=== PATIENT | male | born 1950 | race Caucasian/White ===

== ENCOUNTER 2019-09-19 01:29 | Inpatient (IN) ==
[2019-09-19] MEDS ORDERED: ALUMINUM/MAGNESIUM SUSP 30 ML UDC PO PRN (03:32)
[2019-09-19] MEDS ORDERED: ONDANSETRON INJ 2 MG/ML 2 ML VIAL IV PRN (03:32)
[2019-09-19] MEDS ORDERED: ACETAMINOPHEN 325 MG TAB PO PRN (03:32)
[2019-09-19 04:14] LABS: Basophils # (auto) 0.01 K/uL (0-0.2); Basophils % (auto) 0.1 %; Eosinophils # (auto) 0.06 K/uL (0-0.5); Eosinophils % (auto) 0.4 %; Hematocrit (blood only) 45.5 % (42-52); Immature Granulocytes # (auto) 0.03 K/uL (0.00-0.02); Immature Granulocytes % (auto) 0.2 %; Lymphocytes # (auto) 2.42 K/uL (1.2-3.4); Lymphocytes % (auto) 18.1 %; Mean Corpuscular Hemoglobin 32.2 pg (25-34); Mean Corpuscular Volume 97.6 fL (80-100); Mean Platelet Volume 12.3 fL (7.4-10.4); Monocytes # (auto) 1.04 K/uL (0.11-0.59); Monocytes % (auto) 7.8 %; Neutrophils % (auto) 73.4 %; Platelet Count 219 K/uL (130-400); RDW Coefficient of Variation 15.3 % (11.5-14.5); RDW Standard Deviation 53.9 fL (36.4-46.3); Red Blood Count 4.66 M/uL (4.7-6.1); White Blood Count 13.36 K/uL (4.8-10.8)
--- NOTE | 2019-09-19 04:14 | History & Physical Report ---
Date of Service September 19, 2019 Assessment & Plan (1) Hypernatremia: 69-year-old male with past medical history Alzheimer's dementia, hypertension, hyperlipidemia, depression, anxiety, DJD presents as a direct admit from outside hospital for management of hypernatremia. Hypernatremia Unclear if acute or chronic or what patient's baseline is Sodium 179 on admission--does not change/correct for hyperglycemia. Free water deficit = 11.1 L. IVF D5W initially at 3 mL/kg/hr = 200 mL/hr. Once serum sodium concentration has reached 145 mEq/L, then can reduce rate of infusion to 1 mL/kg/hr Check BMP every 4 hours, goal to correct serum sodium by 10 mEq/L over 24 hours. Avoid overcorrection (goal <12 mg/L/day) Alzheimer's dementia One-to-one observation PRN ordered Continue donezepil 5 mg nightly Frequent orientation to avoid delirium Hypertension Continue Irbesartan 50 mg daily Depression/anxiety/mood disorder Continue escitalopram 20 mg, risperidone 0.25 twice daily, trazodone 25 mg nightly FEN/GI: Na 179. D5W at 200. N.p.o. DVT prophylaxis: Lovenox SQ DNR/DNI Dispo: Direct admitted to [facility] as there were no beds available in telemetry. Admission and Anticipated Discharge Date Admission Date: September 19, 2019 History of Present Illness Chief Complaint: Hypernatremia Primary Care Provider: NO PCP 69-year-old male with past medical history Alzheimer's dementia, hypertension, hyperlipidemia, depression, anxiety, DJD presents as a direct admit from [facility]. History is limited secondary to patient's cognitive status and lack of any significant paperwork/records from outside hospital. Apparently patient's son was driving with patient today and noticed that patient looked clammy and thus presented to outside hospital ED. Labs at outside hospital reportedly showed a sodium of 170 and creatinine 2. Patient received NSS 1L and was transferred via EMS to our hospital and given 1L D5W en route. No other significant HPI to report. Chest x-ray done at OSH, however no report included other than CD which cannot be read until the a.m. by radiology as we do not have any computers with CD compatibility. Allergies Allergy/AdvReac Type Severity Reaction Status Date / Time shellfish derived Allergy Unknown Verified 09/19/19 03:56 tomato Allergy Unknown Verified 09/19/19 03:56 cephalexin [From Keflex] AdvReac Unknown Verified 09/19/19 03:56 choline fenofibrate AdvReac Unknown Verified 09/19/19 03:56 [From Trilipix] coffee (Coffea arabica) AdvReac Unknown Verified 09/19/19 03:56 ezetimibe [From Zetia] AdvReac Unknown Verified 09/19/19 03:56 rosuvastatin [From Crestor] AdvReac Unknown Verified 09/19/19 03:56 Past Med/Surg History Medical History (Updated 09/20/19 @ 15:38 by Abdi Centeno MD) Alzheimer disease Hypertension Osteoarthritis Social History Smoking Status: Unknown if ever smoked Preferred Language: Tamazight Communication Ability: Impaired Communication Ability Comment: Patient is non-verbal with history of alzheimer's dementia. Records Management Analyst Required: No Beliefs That Will Affect Care: None marital status: Single Current Living Situation: Personal Care Facility Current Living Situation Comment: [facility] Feels Safe at Home: Declines to Answer Review of Systems Review of Systems: Unobtainable due to cognitive status Physical Exam Constitutional: + thin; no acute distress Respiratory: normal respiratory effort, lungs clear to auscultation no respiratory distress and no labored breathing Cardiovascular: RRR, no murmur, no edema Gastrointestinal (Abdomen): normal bowel sounds, soft, nontender, no hepatosplenomegaly Skin: no rashes, warm and dry Cool to touch Psychiatric: Orientation: alert; + not oriented x 3 Nonverbal Genitourinary: Hernandez in place Results & Data Results & Data ([facility]) Vital Signs (Past 12 Hours) Vital Signs Temp Pulse Resp BP Pulse Ox 09/19/19 03:01 37.2 C 97 H 20 111/72 95 09/19/19 03:00 37.2 C 97 H 20 111/72 95 Code Status & VTE Plan Code Status DNR/DNI Supervising Physician Co-Signing Physician Notes Attending addendum: I have physically seen this patient, have supervised the medical residents activities, and agree with the H&P unless as otherwise noted. Assessment and Plan: Hypertonic hypernatremia- Sodium 179 upon admission Calculated free water deficit 11.1 L IV fluid replacement as noted Serial BMP every 4 hours SDAT/depression/anxiety/mood disorder- One-to-one observation Donepezil 5 mg p.o. at bedtime, E citalopram 20 mg daily, risperidone 0.25 mg p.o. twice daily and trazodone 25 mg p.o. at bedtime Hypertension- May need to hold irbesartan Remainder of orders and notations as noted Resident Activity Tracking Resident Involvement: Resident Care Provided Care Provided: Adult Hospital Medicine
[2019-09-19 04:45] LABS: Albumin Globulin Ratio 0.7 (0.9-2); BUN Creatinine Ratio 40.1 (10-20); Bilirubin,Total 0.7 mg/dl (0.2-1); Calcium 8.3 mg/dl (8.5-10.1); Creatinine Clr Calc Pharmacy 36.9 ml/min; Est GFR (African American) 43.6; Est GFR (Non-African American) 37.6; Globulin 4.4 gm/dl (2.5-4.0); Potassium 3.6 mmol/L (3.5-5.1); Total Protein 7.4 gm/dl (6.4-8.2)
[2019-09-19] MEDS: DEXTROSE 5% 1,000 ML IV SCH ×4 (04:54→20:22)
[2019-09-19 05:00] LABS: Appearance Urine Cloudy (Clear); Bacteria Urine Automated Negative (Negative); Blood Urine 3+ (Negative); Color Urine Dark Yellow; Epithelial Cell Urine Auto >30 /lpf (0-5); Glucose Urine UA Negative (Negative); Ketones Urine Trace (Negative); Leukocyte Esterase Urine 2+ (Negative); Nitrite Urine Negative (Negative); Protein Urine 1+ (Negative); Urobilinogen Urine Negative (Negative); WBC Urine Automated >30 /hpf (0-5)
[2019-09-19 05:05] LABS: Bilirubin Urine Negative (Negative); Ictotest Urine Negative (Negative)
[2019-09-19 07:44] LABS: BUN Creatinine Ratio 40.6 (10-20); Calcium 8.3 mg/dl (8.5-10.1); Creatinine Clr Calc Pharmacy 39.3 ml/min; Est GFR (Non-African American) 40.5; Potassium 3.4 mmol/L (3.5-5.1)
[2019-09-19] MEDS: ENOXAPARIN INJ 40 MG/0.4 ML SYR SQ SCH (09:00)
--- NOTE | 2019-09-19 10:02 | Hospitalist Progress Note ---
Date of Service September 19, 2019 Assessment & Plan (1) Hypernatremia: Presumed due to dehydration and lack of free water intake. - Continue D5W, frequent BMP checks. - Free water deficit still ~10L (2) Alzheimer disease: Not sure what baseline is, but at present he is totally non-verbal and fighting/agitated when awake. - Continue donepezil, escitalopram, divalproex, trazodone as able (3) Hypertension: BP presently 135/80. - Continue irbesartan as able (4) DVT prophylaxis: Lovenox Admission and Anticipated Discharge Date Admission Date: September 19, 2019 Subjective Non-verbal. Just moans and cannot answer questions. Review of Systems Review of Systems: Unobtainable due to cognitive status Physical Exam Constitutional: WD/WN, vitals as above + acute distress Eyes: EOM intact bilaterally; no conjunctival abnormality ENMT: external ear and nose normal, oropharynx normal Neck: trachea midline, no thyromegaly normal visual inspection Respiratory: normal respiratory effort, lungs clear to auscultation no respiratory distress Cardiovascular: RRR, no murmur, no edema Gastrointestinal (Abdomen): Inspection/Auscultation: abdomen normal to inspection; abdomen not distended Musculoskeletal: no cyanosis or clubbing, extremities motor strength 5/5 Skin: no rashes, warm and dry Neurologic: moves all extremities and awake Psychiatric: Orientation: alert; + not oriented to person and + uncooperative Results & Data Results & Data ([facility]) Vital Signs (Past 12 Hours) Vital Signs Temp Pulse Resp BP Pulse Ox 09/19/19 03:01 37.2 C 97 H 20 111/72 95 09/19/19 03:00 37.2 C 97 H 20 111/72 95 PG Care Time/CCT Total # of Minutes Spent Total Time Spent with Patient: Total time spent is greater than 50% in coordination of care (as documented) at patient's floor/unit and/or counseling patient: Coding Level of Care Code 39821 Subseq Hosp Care Lvl 2 Diagnoses Hypernatremia E87.0 Alzheimer disease G30.9; F02.80 Hypertension I10 DVT prophylaxis Z29.9
[2019-09-19] MEDS: ESCITALOPRAM OXALATE 20 MG TAB PO SCH (11:15)
[2019-09-19] MEDS: IRBESARTAN 150 MG TAB PO SCH (11:15)
[2019-09-19] MEDS: DIVALPROEX DELAY RELEASE 125 MG TABEC PO SCH ×3 (11:15→21:03)
[2019-09-19] MEDS: risperiDONE 0.5 MG TABLET PO SCH ×2 (11:16→21:03)
[2019-09-19] MEDS: LORazepam 0.5 MG/1 ML VIAL IV PRN ×2 (11:29→16:40)
[2019-09-19 11:55] LABS: BUN Creatinine Ratio 37.5 (10-20); Calcium 7.9 mg/dl (8.5-10.1); Creatinine Clr Calc Pharmacy 39.8 ml/min; Est GFR (African American) 47.7; Est GFR (Non-African American) 41.1; Potassium 3.3 mmol/L (3.5-5.1)
[2019-09-19] MEDS: OLANZapine 10 MG/2.1 ML SDV IM PRN ×2 (12:45→19:32)
[2019-09-19 15:31] LABS: BUN Creatinine Ratio 36.4 (10-20); Calcium 8.4 mg/dl (8.5-10.1); Creatinine Clr Calc Pharmacy 40.3 ml/min; Est GFR (African American) 48.3; Est GFR (Non-African American) 41.7
[2019-09-19 16:00] LABS: Magnesium 3.1 mg/dl (1.8-2.4); Phosphorus 3.5 mg/dl (2.5-4.9); Potassium 3.8 mmol/L (3.5-5.1)
--- NOTE | 2019-09-19 17:10 | XRay Report ---
XR chest 1V portable CLINICAL HISTORY: Hypoxemia at outside hospital COMPARISON STUDY: Outside chest x-ray dated 09/18/2019 FINDINGS: The cardiac and mediastinal contours are normal. There is no evidence of focal pulmonary co nsolidation. There is no evidence of failure. No pleural effusions are visualized.[There is an 8 mm r ight upper lung zone opacity. As this was not visualized on the outside chest x-ray performed the day earlier, this likely represents a summation shadow. IMPRESSION: 1. No active disease in the chest 2. 8 mm right upper lung zone opacity, statistically representing a summation shadow ACT 112: Negative or not required by law. Electronically signed by: Dennis Stewart M.D. 09/19/2019 5:09 PM
[2019-09-19] MEDS: LORazepam 1 MG/2 ML VIAL IV PRN (17:46)
[2019-09-19 19:38] LABS: BUN Creatinine Ratio 35.3 (10-20); Calcium 8.1 mg/dl (8.5-10.1); Creatinine Clr Calc Pharmacy 43.9 ml/min; Est GFR (African American) 53.7; Est GFR (Non-African American) 46.4; Potassium 3.4 mmol/L (3.5-5.1)
[2019-09-19] MEDS: DONEPEZIL HCL 5 MG TAB PO SCH (21:03)
[2019-09-19] MEDS: TRAZODONE HCL 50 MG TAB PO SCH (21:04)
[2019-09-20] MEDS: DEXTROSE 5% 1,000 ML IV SCH ×5 (00:30→21:33)
[2019-09-20 06:00] LABS: Hematocrit (blood only) 40.9 % (42-52); Hemoglobin 13.4 g/dL (14.0-18.0); Mean Corpuscular Hemoglobin 31.4 pg (25-34); Mean Corpuscular Hgb Conc 32.8 g/dL (32-36); Mean Corpuscular Volume 95.8 fL (80-100); Mean Platelet Volume 12.2 fL (7.4-10.4); Platelet Count 176 K/uL (130-400); RDW Coefficient of Variation 14.5 % (11.5-14.5); RDW Standard Deviation 50.8 fL (36.4-46.3); Red Blood Count 4.27 M/uL (4.7-6.1); White Blood Count 10.81 K/uL (4.8-10.8)
[2019-09-20 06:12] LABS: INR 1.1 (0.9-1.1); Prothrombin Time 11.9 Seconds (9.0-12.0)
[2019-09-20 07:00] LABS: Creatinine Clr Calc Pharmacy 61.1 ml/min; Est GFR (African American) 80.1; Est GFR (Non-African American) 69.1; Phosphorus 2.8 mg/dl (2.5-4.9); Potassium 3.2 mmol/L (3.5-5.1)
[2019-09-20] MEDS: POTASSIUM CHLORIDE / WTR 10 MEQ/100 ML PLCT IV SCH ×4 (08:52→12:38)
[2019-09-20] MEDS: IRBESARTAN 150 MG TAB PO SCH (10:53)
[2019-09-20] MEDS: ESCITALOPRAM OXALATE 20 MG TAB PO SCH (10:53)
[2019-09-20] MEDS: DIVALPROEX DELAY RELEASE 125 MG TABEC PO SCH ×3 (10:53→21:30)
[2019-09-20] MEDS: risperiDONE 0.5 MG TABLET PO SCH ×2 (10:54→21:29)
[2019-09-20] MEDS: ENOXAPARIN INJ 40 MG/0.4 ML SYR SQ SCH (10:54)
--- NOTE | 2019-09-20 11:35 | Nephrology Consultation ---
Date of Consultation September 20, 2019 Assessment & Plan (1) Hypernatremia: Mr. Bhagat Admitted with acute hyponatremia and acute kidney injury. has advanced dementia and has been a senior living. Hyponatremia and CLARITZA seems to be secondary to volume depletion with decreased free wonder intake, he had free water deficit almost 11 L on admission. Note suggestive of DI. Acute kidney injury resolved and hyponatremia improving with D5W. -- Decrease D5W to 100 mL/hour, recheck sodium at noon and adjust the rate accordingly. -- Going forward it will be extremely important to educate senior living staff to maintain access to free water considering patient's underlying advanced demen tia. will follow Thank you for allowing me to participate in your patient's care. It was a pleasure to see Mr. Bhagat. (2) Hypertension: (3) Alzheimer disease: History of Present Illness Reason for Consultation: Hypernatremia Attending Physician: Abdi Centeno MD History of Present Illness Mr. Bhagat is 69-year-old gentlemen with past medical history significant for advanced dementia, hypertension admitted from outside hospital as a transfer for hyponatremia. Nephrology consult was requested to manage hyponatremia. Electronic medical records are reviewed in detail during patient's visit. Patient could not provide much history because of underlying dementia and decreased responsiveness however his son was at bedside who provided most of the information. Mr. Bhagat has advanced dementia and he has been living in senior living. Two days ago his son brought him to [facility] emergency room with concern of him to be cold and clammy and not at his baseline. in ER he was found to have sodium 1 and 70 and creatinine 2.0 with baseline normal renal function. Was given 1 L of normal saline and transferred to [facility]. He was found lethargic and less responsive. Serum sodium was 175 and creatinine was 1.8. He was started on D5W at 200 mL/hour. Serum sodium improved rapidly to 162 this morning, creatinine 1.1. Urine output has been less than 1 L and urine specific gravity was high. Blood pressure has been stable, afebrile, no respiratory distress. Currently he he seems to be comfortable, moving extremities however did not communicate any meaningful way or answer any question. Allergies Allergy/AdvReac Type Severity Reaction Status Date / Time shellfish derived Allergy Unknown Verified 09/19/19 03:56 tomato Allergy Unknown Verified 09/19/19 03:56 cephalexin [From Keflex] AdvReac Unknown Verified 09/19/19 03:56 choline fenofibrate AdvReac Unknown Verified 09/19/19 03:56 [From Trilipix] coffee (Coffea arabica) AdvReac Unknown Verified 09/19/19 03:56 ezetimibe [From Zetia] AdvReac Unknown Verified 09/19/19 03:56 rosuvastatin [From Crestor] AdvReac Unknown Verified 09/19/19 03:56 Patient History Medical History (Updated 09/19/19 @ 10:00 by Abdi Centeno MD) Alzheimer disease Hypertension Osteoarthritis Social History Smoking Status: Unknown if ever smoked Preferred Language: Estonian Communication Ability: Impaired Communication Ability Comment: Patient is non-verbal with history of alzheimer's dementia. Environmental Management Specialist Required: No Beliefs That Will Affect Care: None marital status: Single Current Living Situation: Personal Care Facility Current Living Situation Comment: [facility] Feels Safe at Home: Declines to Answer Review of Systems Review of Systems: Unobtainable due to mental health condition Physical Exam Constitutional: + ill appearing, + altered mental status and + lethargic; no acute distress Eyes: PERRL, conjunctivae normal, anicteric sclerae ENMT: external ear and nose normal, oropharynx normal Ears: no hearing impairment Neck: normal visual inspection Respiratory: normal respiratory effort, lungs clear to auscultation no cough Auscultation: no crackles, no rales and no wheezes Cardiovascular: RRR, no murmur, no edema Gastrointestinal (Abdomen): normal bowel sounds, soft, nontender, no hepatosplenomegaly Percussion/Palpation: abdomen nontender, no guarding and abdomen not rigid Musculoskeletal: Extremities: extremities normal to inspection Skin: no rashes, warm and dry Neurologic: could not be assessed. Psychiatric: could not be assessed. Results & Data Vital Signs (Past 12 Hours) Vital Signs Temp Pulse Resp BP BP Pulse Ox 09/20/19 08:23 36.6 C 74 18 137/76 96 09/20/19 05:54 36.8 C 86 18 134/78 96 PG Care Time/CCT Total # of Minutes Spent Total Time Spent with Patient: Total time spent is greater than 50% in coordination of care (as documented) at patient's floor/unit and/or counseling patient: Coding Level of Care Code 95675 Inpt Consult Level 5 Diagnoses Hypernatremia E87.0 Hypertension I10 Alzheimer disease G30.9; F02.80
--- NOTE | 2019-09-20 15:40 | Hospitalist Progress Note ---
Date of Service September 20, 2019 Assessment & Plan (1) Hypernatremia: Presumed due to dehydration and lack of free water intake. - Continue D5W, frequent BMP checks. - Free water deficit still ~4L -> Rate slowed to 100 mL by nephrology - Consulted nephrology -> Appreciate recs. (2) Acute renal failure: Acute kidney failure, POA. Unknown baseline. Cr was 1.8 on admission. - Down to 1.1 today. (3) Alzheimer disease: Not sure what baseline is, but at present he is totally non-verbal and fighting/agitated when awake. - Continue donepezil, escitalopram, divalproex, trazodone as able - Palliative care consult given poor cognitive status (4) Hypertension: BP presently 91/50. - Continue irbesartan as able (5) DVT prophylaxis: Lovenox Admission and Anticipated Discharge Date Admission Date: September 19, 2019 Subjective Still only moaning. No verbal responses. Review of Systems Review of Systems: Unobtainable due to cognitive status Physical Exam Constitutional: WD/WN, vitals as above + acute distress Eyes: EOM intact bilaterally; no conjunctival abnormality ENMT: external ear and nose normal, oropharynx normal Neck: trachea midline, no thyromegaly normal visual inspection Respiratory: normal respiratory effort, lungs clear to auscultation no respiratory distress Cardiovascular: RRR, no murmur, no edema Gastrointestinal (Abdomen): Inspection/Auscultation: abdomen normal to inspection; abdomen not distended Musculoskeletal: no cyanosis or clubbing, extremities motor strength 5/5 Skin: no rashes, warm and dry Neurologic: moves all extremities; + not awake Psychiatric: Orientation: + not alert, + not oriented to person and + uncooperative Results & Data Results & Data ([facility]) Vital Signs (Past 12 Hours) Vital Signs Temp Pulse Resp BP BP Pulse Ox 09/20/19 15:23 37.0 C 97 H 16 91/57 L 97 09/20/19 08:23 36.6 C 74 18 137/76 96 09/20/19 05:54 36.8 C 86 18 134/78 96 PG Care Time/CCT Total # of Minutes Spent Total Time Spent with Patient: Total time spent is greater than 50% in coordination of care (as documented) at patient's floor/unit and/or counseling patient: Coding Level of Care Code 23736 Subseq Hosp Care Lvl 2 Diagnoses Hypernatremia E87.0 Acute renal failure N17.9 Alzheimer disease G30.9; F02.80 Hypertension I10 DVT prophylaxis Z29.9
--- NOTE | 2019-09-20 17:28 | Electrocardiogram Report ---
Test Reason : Blood Pressure : / mmHG Vent. Rate : 101 BPM Atrial Rate : 101 BPM P-R Int : 166 ms QRS Dur : 064 ms QT Int : 356 ms P-R-T Axes : 113 055 061 degrees QTc Int : 461 ms Poor data quality, interpretation may be adversely affected Sinus tachycardia Nonspecific ST and T wave abnormality Abnormal ECG No previous ECGs available Confirmed by Kenneth Abdi ([id number]) on 09/20/2019 5:28:11 PM Referred By: Jessu Phelan Confirmed By:Max Abdi
--- NOTE | 2019-09-20 20:05 | Billing Data ---
Date of Service September 20, 2019 Coding Level of Care Code 86703 Initial Inpt Care Lvl 3
[2019-09-20 21:17] LABS: BUN Creatinine Ratio 26.6 (10-20); Calcium 7.9 mg/dl (8.5-10.1); Creatinine Clr Calc Pharmacy 65.3 ml/min; Est GFR (African American) 86.7; Est GFR (Non-African American) 74.8; Magnesium 2.6 mg/dl (1.8-2.4); Phosphorus 2.4 mg/dl (2.5-4.9); Potassium 3.5 mmol/L (3.5-5.1)
[2019-09-20] MEDS: DONEPEZIL HCL 5 MG TAB PO SCH (21:24)
[2019-09-20] MEDS: TRAZODONE HCL 50 MG TAB PO SCH (21:25)
[2019-09-21] MEDS: LORazepam 1 MG/2 ML VIAL IV PRN ×2 (00:45→06:12)
[2019-09-21] MEDS: OLANZapine 10 MG/2.1 ML SDV IM PRN (04:07)
[2019-09-21 05:57] LABS: Hematocrit (blood only) 38.4 % (42-52); Hemoglobin 12.5 g/dL (14.0-18.0); Mean Corpuscular Hemoglobin 30.6 pg (25-34); Mean Corpuscular Hgb Conc 32.6 g/dL (32-36); Mean Corpuscular Volume 93.9 fL (80-100); Mean Platelet Volume 12.2 fL (7.4-10.4); Platelet Count 153 K/uL (130-400); RDW Coefficient of Variation 13.6 % (11.5-14.5); RDW Standard Deviation 46.3 fL (36.4-46.3); Red Blood Count 4.09 M/uL (4.7-6.1); White Blood Count 7.68 K/uL (4.8-10.8)
[2019-09-21] MEDS: DEXTROSE 5% 1,000 ML IV SCH ×2 (06:12→16:36)
[2019-09-21 06:38] LABS: Albumin Level 2.2 gm/dl (3.4-5.0); BUN Creatinine Ratio 26.9 (10-20); Calcium 7.5 mg/dl (8.5-10.1); Est GFR (African American) 106.1; Est GFR (Non-African American) 91.5; Magnesium 2.5 mg/dl (1.8-2.4); Phosphorus 2.4 mg/dl (2.5-4.9); Potassium 3.3 mmol/L (3.5-5.1)
[2019-09-21] MEDS ORDERED: POTASSIUM PHOS 3 MMOL/1 ML INFUSION IV STA (07:47)
[2019-09-21] MEDS ORDERED: POTASSIUM PHOSPHATE 24 MMOL in SODIUM CHLORIDE 0.9% 500 ML IV ONE (08:15)
[2019-09-21] MEDS: POTASSIUM CHLORIDE / WTR 10 MEQ/100 ML PLCT IV SCH ×2 (08:37→09:34)
[2019-09-21] MEDS: ENOXAPARIN INJ 40 MG/0.4 ML SYR SQ SCH (08:41)
--- NOTE | 2019-09-21 08:57 | Palliative Care Consultation ---
Date of Consultation September 21, 2019 Assessment & Plan (1) Goals of care, counseling/discussion: This is a 69 year old male who arrived to the [facility] by his son who drove him here as he was appearing 'clammy'. The patient was found to be hypernatremic (NA+ 179 on admission). The patient has been receiving IV fluids for correction and now his Na+ is 154. Additional PMH Includes: alzheimer's dementia, HTN, HLD, depressions, anxiety, DJD and others. The patient is a long-term resident at [facility] and per staff there, at baseline is mostly non-verbal, ambulatory, requires some assistance with ADL's and is a self feeding individual. The patient has been noted to have some behavioral change with his dementia and has been receiving Risperidone, Trazadone, and Zyprexa. The patient does have a living will that does indicate overall comfort care. Palliative Care was consulted to discuss goals of care with this patient's son. The patient is a DNR/DNI. -I met with the patient by himself in the room. He was moaning and grabbing at the air, but did not open his eyes for me and was unable to follow commands. -I did call his son, Brendan and he said that he was in the room, so I went back to visit with him. He also has a 1:1 now. -We discussed his Na+ levels and other electrolytes. He stated that his Dad has been declining, but he didnt expect this, this fast. -Of course, we plan to slowly return his Na+ level back to baseline, along with other electrolytes, but also wanted to discuss goals of care. -I did confirm that he is a DNR/DNI. His son is concerned that this has progressed faster than he anticipated and he said "he is so young". We discussed different options depending on the progression of his hospitalization. -His son stated he would like for him to return to [facility]. I expressed that we will have to determine his functional and cognitive level for returning there. Right now, its likely they would only allow him to return if Hospice was involved. Moving forward if he does not return to baseline ambulation, This patient would qualify for hospice services with a diagnosis of Senile Degeneration of the Brain. -We also discussed SNF for short term rehab and readdressing long-term placement or hospice involvement depending. Of course, right now, he would not be in a space functionally to participate in PT/OT. -Palliative care will continue to follow this patient. -We did discuss the balance that is difficult trying to minimize sedatives or antipsychotics to assess baseline cognitive function, but also looking at safety of the patient as well. -Currently the patient is receiving: Risperidone 0.25 mg PO BID (ONE dose over the last 24 hours), Trazadone 25 mg PO QHS (ONCE dose over the past 24 hours), and Zyprexa 5mg IM Q6 PRN (ONE dose over the past 24 hours). -I would suggest cutting back the Risperidone to daily dosing, especially since he only received one dose in 24 hours anyway. Additionally, I would cut his Trazadone to 12.5 and change the Zyprexa to SL instead of IM, unless, of course, he is combative. -On assessment, I did see that his left eye was ecchymotic. No imaging has been done, which could be a consideration to evaluate for possible trauma. -The patient does have a living will that indicates the patient would want conservative measures. I believe if this is the patients new baseline, the son will have a hard time with this new acceptance. -Palliative Care will follow and continue to assist with decision making as we gain more understanding of his illness and disease trajectory. -The above has been discussed with the hospitalist. -PPS: 20% (2) Alzheimer disease: (3) Hypernatremia: (4) Acute renal failure: History of Present Illness Reason for Consultation: Goals of Care Requesting Physician: Dr. Centeno Attending Physician: Abdi Centeno MD History of Present Illness This is a 69 year old male who arrived to the [facility] by his son who drove him here as he was appearing 'clammy'. The patient was found to be hypernatremic (NA+ 179 on admission). The patient has been receiving IV fluids for correction and now his Na+ is 154. Additional PMH Includes: alzheimer's dementia, HTN, HLD, depressions, anxiety, DJD and others. The patient is a long-term resident at [facility] and per staff there, at baseline is mostly non-verbal, ambulatory, requires some assistance with ADL's and is a self feeding individual. The patient has been noted to have some behavioral change with his dementia and has been receiving Risperidone, Trazadone, and Zyprexa. The patient does have a living will that does indicate overall comfort care. Palliative Care was consulted to discuss goals of care with this patient's son. The patient is a DNR/DNI. Please see A/P for further details. Thank you kindly for involving the Palliative Care team with this patient. We will follow to continue to assist the family with goals. Allergies Allergy/AdvReac Type Severity Reaction Status Date / Time shellfish derived Allergy Unknown Verified 09/19/19 03:56 tomato Allergy Unknown Verified 09/19/19 03:56 cephalexin [From Keflex] AdvReac Unknown Verified 09/19/19 03:56 choline fenofibrate AdvReac Unknown Verified 09/19/19 03:56 [From Trilipix] coffee (Coffea arabica) AdvReac Unknown Verified 09/19/19 03:56 ezetimibe [From Zetia] AdvReac Unknown Verified 09/19/19 03:56 rosuvastatin [From Crestor] AdvReac Unknown Verified 09/19/19 03:56 Patient History Medical History (Updated 09/21/19 @ 08:57 by OPAL Escamilla) Alzheimer disease Goals of care, counseling/discussion Hypertension Osteoarthritis Social History Smoking Status: Unknown if ever smoked Preferred Language: Emirati Communication Ability: Impaired Communication Ability Comment: Patient is non-verbal with history of alzheimer's dementia. Clinical Rehabilitation Coordinator Required: No Beliefs That Will Affect Care: None marital status: Single Current Living Situation: Personal Care Facility Current Living Situation Comment: [facility] Feels Safe at Home: Declines to Answer Review of Systems Review of Systems: Unobtainable due to cognitive status Physical Exam Constitutional: + ill appearing, + frail appearing, + combative and + lethargic Respiratory: normal respiratory effort, lungs clear to auscultation Auscultation: + diminished lung sounds Cardiovascular: RRR, no murmur, no edema Gastrointestinal (Abdomen): normal bowel sounds, soft, nontender, no hepatosplenomegaly Skin: + ecchymosis (around left eye) Psychiatric: Orientation: alert Insight: + impaired insight Judgement: + impaired judgement Genitourinary: indwelling acosta catheter in place Results & Data Vital Signs (Past 12 Hours) Vital Signs Temp Pulse Resp BP Pulse Ox 09/21/19 06:48 36.6 C 82 16 108/69 96 09/20/19 23:26 36.7 C 88 16 110/71 94 PG Care Time/CCT Total # of Minutes Spent Total Time Spent with Patient: Total time spent is greater than 50% in coordination of care (as documented) at patient's floor/unit and/or counseling patient: 100 Coding Level of Care Code 24873 Inpt Consult Level 4 Diagnoses Goals of care, counseling/discussion Z71.89 Alzheimer disease G30.9; F02.80 Hypernatremia E87.0 Acute renal failure N17.9 Time Spent (min) 100 Time Spent Midlevel Total time spent 100 minutes with > 50% of that time spent assessing the patient, discussing goals of care with family and IDt.
[2019-09-21] MEDS: DIVALPROEX DELAY RELEASE 125 MG TABEC PO SCH ×2 (09:48→13:07)
[2019-09-21] MEDS: ESCITALOPRAM OXALATE 20 MG TAB PO SCH (09:49)
[2019-09-21] MEDS: risperiDONE 0.5 MG TABLET PO SCH (09:49)
--- NOTE | 2019-09-21 10:03 | Nephrology Progress Note ---
Date of Service September 21, 2019 Assessment & Plan (1) Hypernatremia: Mr. Bhagat Admitted with acute hyponatremia and acute kidney injury. has advanced dementia and has been a detention. Hyponatremia and CLARITZA seems to be secondary to volume depletion with decreased free wonder intake, he had free water deficit almost 11 L on admission. Note suggestive of DI. Acute kidney injury resolved and hyponatremia improving with D5W. Na 152, CLARITZA resolved. BPs table -- continue D5W 100 mL/hour, recheck sodium in am. -- Going forward it will be extremely important to educate detention staff to maintain access to free water considering patient's underlying advanced dementia. will follow Admission and Anticipated Discharge Date Admission Date: September 19, 2019 Subjective Mr. Bhagat was seen and examined this am. He seems to be alert but didm not open eye or communicated in a meaningful way. BP stable, decent UO, Na down to 152. Review of Systems Review of Systems: All systems reviewed & are unremarkable except as noted in HPI & below Physical Exam Constitutional: + ill appearing, + altered mental status and + lethargic; no acute distress Neck: normal visual inspection Respiratory: normal respiratory effort, lungs clear to auscultation no cough Auscultation: no crackles, no rales and no wheezes Cardiovascular: RRR, no murmur, no edema Skin: no rashes, warm and dry Results & Data ([facility]) Vital Signs (Past 12 Hours) Vital Signs Temp Pulse Resp BP Pulse Ox 09/21/19 06:48 36.6 C 82 16 108/69 96 09/20/19 23:26 36.7 C 88 16 110/71 94 PG Care Time/CCT Total # of Minutes Spent Total Time Spent with Patient: Total time spent is greater than 50% in coordination of care (as documented) at patient's floor/unit and/or counseling patient: Coding Level of Care Code 52747 Subseq Hosp Care Lvl 3 Diagnoses Hypernatremia E87.0
--- NOTE | 2019-09-21 16:20 | Hospitalist Progress Note ---
Date of Service September 21, 2019 Assessment & Plan (1) Hypernatremia: Presumed due to dehydration and lack of free water intake. - Free water deficit still ~4L -> D5w rate slowed to 100 mL by nephrology on 09/19. - Consulted nephrology -> Appreciate recs. Improving gradually as desired. Down to 152 today. (2) Acute renal failure: Acute kidney failure, POA. Unknown baseline. Cr was 1.8 on admission. - Down to 0.8 today. Resolved. (3) Alzheimer disease: At present he is totally non-verbal and fighting/agitated when awake. Per son, baseline is that he is able to walk around and have some simple convers ations. - Continue donepezil, escitalopram, divalproex, trazodone as able - Palliative care consult given poor cognitive status -> Appreciate recs. (4) Hypertension: BP presently 115/75. - Hold irbesartan (5) DVT prophylaxis: Lovenox Admission and Anticipated Discharge Date Admission Date: September 19, 2019 Subjective Unresponsive and unable to answer questions. Review of Systems Review of Systems: Unobtainable due to mental health condition and Unobtainable due to cognitive status Physical Exam Constitutional: WD/WN, vitals as above + acute distress Eyes: EOM intact bilaterally; no conjunctival abnormality ENMT: external ear and nose normal, oropharynx normal Neck: trachea midline, no thyromegaly normal visual inspection Respiratory: normal respiratory effort, lungs clear to auscultation no respiratory distress Cardiovascular: RRR, no murmur, no edema Gastrointestinal (Abdomen): Inspection/Auscultation: abdomen normal to inspection; abdomen not distended Musculoskeletal: no cyanosis or clubbing, extremities motor strength 5/5 Skin: no rashes, warm and dry Neurologic: moves all extremities; + not awake Psychiatric: Orientation: + not alert, + not oriented to person and + uncooperative Results & Data Results & Data ([facility]) Vital Signs (Past 12 Hours) Vital Signs Temp Pulse Resp BP Pulse Ox 09/21/19 15:39 37.8 C H 96 H 16 112/75 95 09/21/19 06:48 36.6 C 82 16 108/69 96 PG Care Time/CCT Total # of Minutes Spent Total Time Spent with Patient: Total time spent is greater than 50% in coordination of care (as documented) at patient's floor/unit and/or counseling patient: Coding Level of Care Code 18311 Subseq Hosp Care Lvl 2 Diagnoses Hypernatremia E87.0 Acute renal failure N17.9 Alzheimer disease G30.9; F02.80 Hypertension I10 DVT prophylaxis Z29.9
[2019-09-21] MEDS ORDERED: OLANZAPINE 2.5 MG TAB PO PRN (16:24)
[2019-09-21] MEDS ORDERED: LORazepam 0.5 MG/1 ML VIAL IV PRN (16:24)
[2019-09-21] MEDS: ACETAMINOPHEN 1,000 MG/100 ML VIAL IV PRN (16:39)
[2019-09-22] MEDS: DEXTROSE 5% 1,000 ML IV SCH ×2 (03:13→14:34)
[2019-09-22 06:21] LABS: Hemoglobin 12.2 g/dL (14.0-18.0); Mean Corpuscular Hemoglobin 31.4 pg (25-34); Mean Corpuscular Hgb Conc 33.9 g/dL (32-36); Mean Corpuscular Volume 92.8 fL (80-100); Mean Platelet Volume 12.2 fL (7.4-10.4); Platelet Count 162 K/uL (130-400); RDW Coefficient of Variation 13.4 % (11.5-14.5); Red Blood Count 3.88 M/uL (4.7-6.1); White Blood Count 9.81 K/uL (4.8-10.8)
[2019-09-22 06:54] LABS: Albumin Level 2.1 gm/dl (3.4-5.0); BUN Creatinine Ratio 16.7 (10-20); Calcium 7.6 mg/dl (8.5-10.1); Est GFR (African American) 107.1; Est GFR (Non-African American) 92.4; Magnesium 2.2 mg/dl (1.8-2.4); Phosphorus 2.4 mg/dl (2.5-4.9); Potassium 3.7 mmol/L (3.5-5.1)
[2019-09-22] MEDS ORDERED: POTASSIUM PHOS 3 MMOL/1 ML INFUSION IV STA (07:54)
[2019-09-22] MEDS ORDERED: CALCIUM GLUCONATE 10% 2,000 MG in SODIUM CHLORIDE 0.9% 50 ML IV ONE (08:15)
[2019-09-22] MEDS ORDERED: POTASSIUM PHOSPHATE 24 MMOL in SODIUM CHLORIDE 0.9% 500 ML IV ONE (08:30)
[2019-09-22] MEDS: ENOXAPARIN INJ 40 MG/0.4 ML SYR SQ SCH (08:30)
--- NOTE | 2019-09-22 11:12 | Hospitalist Progress Note ---
Date of Service September 22, 2019 Assessment & Plan (1) Hypernatremia: Presumed due to dehydration and lack of free water intake. - Free water deficit still ~4L -> D5w rate slowed to 100 mL by nephrology on 09/19. - Consulted nephrology -> Appreciate recs. Improving gradually as desired. Down to 149 today. Still no improvement in mental status change though. Replete other electrolytes as needed. (2) Alzheimer disease: At present he is totally non-verbal and fighting/agitated when awake. Per son, baseline is that he is able to walk around and have some simple conversations. - Palliative care consult given poor cognitive status -> Appreciate recs. - Holding donepezil, escitalopram, divalproex, trazodone as he has aspiration concerns. - If/when his mental status clears, will need [employer] evaluation for swallowing/aspiration. (3) Acute renal failure: Acute kidney failure, POA. Unknown baseline. Cr was 1.8 on admission. - Down to 0.8 today. Resolved. (4) Hypertension: BP presently 160/85. - Hold irbesartan due to concern for aspiration. (5) DVT prophylaxis: Lovenox Admission and Anticipated Discharge Date Admission Date: September 19, 2019 Subjective Lethargic today. Unable to answer questions even when awake. Review of Systems Review of Systems: Unobtainable due to cognitive status Physical Exam Constitutional: WD/WN, vitals as above + acute distress Eyes: EOM intact bilaterally; no conjunctival abnormality ENMT: external ear and nose normal, oropharynx normal Neck: trachea midline, no thyromegaly normal visual inspection Respiratory: normal respiratory effort, lungs clear to auscultation no respiratory distress Cardiovascular: RRR, no murmur, no edema Gastrointestinal (Abdomen): Inspection/Auscultation: abdomen normal to inspection; abdomen not distended Musculoskeletal: no cyanosis or clubbing, extremities motor strength 5/5 Skin: no rashes, warm and dry Neurologic: moves all extremities; + not awake Psychiatric: Orientation: + not alert, + not oriented to person and + uncooperative Results & Data Results & Data ([facility]) Vital Signs (Past 12 Hours) Vital Signs Temp Pulse Resp BP Pulse Ox 09/22/19 08:38 36.6 C 09/22/19 07:52 83 18 157/84 H 98 09/22/19 00:40 37.1 C 86 16 130/78 98 PG Care Time/CCT Total # of Minutes Spent Total Time Spent with Patient: Total time spent is greater than 50% in coordination of care (as documented) at patient's floor/unit and/or counseling patient: Coding Level of Care Code 82063 Subseq Hosp Care Lvl 2 Diagnoses Hypernatremia E87.0 Alzheimer disease G30.9; F02.80 Acute renal failure N17.9 Hypertension I10 DVT prophylaxis Z29.9
--- NOTE | 2019-09-22 14:21 | Nephrology Progress Note ---
Date of Service September 22, 2019 Assessment & Plan (1) Hypernatremia: Improving. Tolerating IV free water replacement. Free water deficit at least 2 L currently. Continue IV D5W and electrolyte replacement. Unfortunately, Scar remains NPO. Mental status prohibits taking adequate fluids by mouth. It is unclear if he is adipsic. Baseline mental status not known to be but I would have significant concerns about ability to maintain adequate oral intake and nutrition. (2) Acute renal failure: Due to dehydration. BP acceptable. Non-oliguric. Hernandez intact (this appears to be chronic). (3) Alzheimer disease: Baseline mental status unclear to me but advanced dementia noted. 1:1 remains at bedside. Patient not taking anything PO at this time. Admission and Anticipated Discharge Date Admission Date: September 19, 2019 Subjective No acute events overnight. Mr. Bhagat was resting comfortably in bed during my assessment this AM. He was sleeping but easy to arouse. He was not agitated. Remains NPO. No fevers or chills. Tolerating IVF well. 1:1 at bedside. Review of Systems Review of Systems: Unobtainable due to cognitive status Physical Exam Constitutional: + thin and + frail appearing; no acute distress Eyes: + anicteric sclerae; no corneal abnormality ENMT: Mouth: + dry oral mucous membranes; no oral mucosal abnormality Neck: normal visual inspection and trachea midline Respiratory: normal respiratory effort Auscultation: lungs clear to auscultation bilaterally Cardiovascular: Rate/Rhythm: regular rate and regular rhythm Vessels: no JVD Extremities: no edema Gastrointestinal (Abdomen): Percussion/Palpation: abdomen soft; abdomen nontender Musculoskeletal: Extremities: no cyanosis and no clubbing Skin: + turgor decreased and + dry skin Neurologic: + confused Motor/Sensory: no tremor and no asterixis Psychiatric: Orientation: + not oriented x 3 Eye Contact: + poor eye contact Results & Data ([facility]) Vital Signs (Past 12 Hours) Vital Signs Temp Pulse Resp BP Pulse Ox 09/22/19 08:38 36.6 C 09/22/19 07:52 83 18 157/84 H 98 Laboratory Results Laboratory Results - last 24 hr 09/22/19 09/22/19 05:25 05:25 WBC 9.81 RBC 3.88 L Hgb 12.2 L Hct 36.0 L MCV 92.8 MCH 31.4 MCHC 33.9 RDW Std Deviation 45.0 RDW Coeff of Vivienne 13.4 Plt Count 162 MPV 12.2 H Sodium 149 H Potassium 3.7 Chloride 121 H Carbon Dioxide 23 Anion Gap 5.0 BUN 13 Creatinine 0.80 Est Cr Clr Drug Dosing 84.0 Est GFR ( Amer) 107.1 Est GFR (Non-Af Amer) 92.4 BUN/Creatinine Ratio 16.7 Glucose 125 H Calcium 7.6 L Phosphorus 2.4 L Magnesium 2.2 Albumin 2.1 L PG Care Time/CCT Total # of Minutes Spent Total Time Spent with Patient: Total time spent is greater than 50% in coordination of care (as documented) at patient's floor/unit and/or counseling patient: Coding Level of Care Code 25924 Subseq Hosp Care Lvl 3 Diagnoses Hypernatremia E87.0 Acute renal failure N17.9 Alzheimer disease G30.9; F02.80
[2019-09-22] MEDS: D5W AND 1/4NSS + 20MEQ KCL 20 MEQ/1,000 ML BAG IV SCH ×2 (15:43→22:16)
[2019-09-22] MEDS: ACETAMINOPHEN 1,000 MG/100 ML VIAL IV PRN (23:31)
[2019-09-23 00:39] LABS: Appearance Urine Clear (Clear); Bilirubin Urine Negative (Negative); Blood Urine Negative (Negative); Color Urine Yellow; Glucose Urine UA Negative (Negative); Ketones Urine Negative (Negative); Leukocyte Esterase Urine Negative (Negative); Nitrite Urine Negative (Negative); Protein Urine Negative (Negative); Specific Gravity Urine 1.012 (1.000-1.030); Urobilinogen Urine Negative (Negative)
[2019-09-23] MEDS: D5W AND 1/4NSS + 20MEQ KCL 20 MEQ/1,000 ML BAG IV SCH (05:00)
[2019-09-23 05:51] LABS: Hematocrit (blood only) 38.1 % (42-52); Hemoglobin 13.3 g/dL (14.0-18.0); Mean Corpuscular Hemoglobin 32.1 pg (25-34); Mean Corpuscular Hgb Conc 34.9 g/dL (32-36); Mean Platelet Volume 11.8 fL (7.4-10.4); Platelet Count 153 K/uL (130-400); RDW Coefficient of Variation 13.2 % (11.5-14.5); RDW Standard Deviation 43.8 fL (36.4-46.3); Red Blood Count 4.14 M/uL (4.7-6.1); White Blood Count 13.97 K/uL (4.8-10.8)
--- NOTE | 2019-09-23 06:07 | Communication Note ---
Date of Service: September 23, 2019 Patient febrile overnight, uptrending fever curve with leukocytosis. MRSA negative nares on admit. Unclear source, patient not able to give history due to severe dementia and does not communicate symptoms. Chest x-ray shows possible new left infiltrate, empiric Levaquin started. Zosyn/cefepime deferred due to Keflex allergy. BC drawn prior to antibiotics.
[2019-09-23 06:26] LABS: Albumin Globulin Ratio 0.5 (0.9-2); Albumin Level 2.3 gm/dl (3.4-5.0); BUN Creatinine Ratio 11.9 (10-20); Bilirubin,Total 0.8 mg/dl (0.2-1); Calcium 8.3 mg/dl (8.5-10.1); Creatinine Clr Calc Pharmacy 78.2 ml/min; Est GFR (Non-African American) 89.7; Globulin 4.2 gm/dl (2.5-4.0); Magnesium 2.2 mg/dl (1.8-2.4); Phosphorus 2.6 mg/dl (2.5-4.9); Potassium 5.2 mmol/L (3.5-5.1); Total Protein 6.5 gm/dl (6.4-8.2)
[2019-09-23] MEDS ORDERED: LEVOFLOXACIN/D5W 750 MG/150 ML BAG IV SCH (06:30)
--- NOTE | 2019-09-23 06:42 | XRay Report ---
XR chest 1V portable CLINICAL HISTORY: Fever, pt nonverbal COMPARISON STUDY: 09/19/2019 FINDINGS: Interval development of a left basilar interstitial infiltrate. Lungs otherwise appear darrian r. Diaphragms are smooth. IMPRESSION: Interstitial infiltrate left base. ACT 112: Negative or not required by law. The above report was generated using voice recognition software. It may contain grammatical, syntax or spelling errors. Electronically signed by: Jordan Rocha M.D. 09/23/2019 6:40 AM
[2019-09-23] MEDS: DEXTROSE 5% 1,000 ML IV SCH ×2 (07:13→14:29)
[2019-09-23] MEDS: ENOXAPARIN INJ 40 MG/0.4 ML SYR SQ SCH (09:25)
--- NOTE | 2019-09-23 11:09 | Nephrology Progress Note ---
Date of Service September 23, 2019 Assessment & Plan (1) Hypernatremia: Improving. Tolerating IV free water replacement. Free water deficit remains 1-2 L. Continue IV D5W. Document input. UA updated yesterday, SG 1.012. Scar is now taking thickened fluids by mouth. (2) Acute renal failure: Due to dehydration. BP acceptable. Creatinine improved. Non-oliguric. (3) Alzheimer disease: Baseline mental status unclear to me but advanced dementia noted. 1:1 remains at bedside. Patient not taking anything PO at this time. Admission and Anticipated Discharge Date Admission Date: September 19, 2019 Subjective Tolerating thickened liquids. Tmax 38.3. CXR with left lower lobe infiltrate. No significant improvement in mental status. COVID testing pending. Review of Systems Review of Systems: Unobtainable due to cognitive status Physical Exam Physical Exam: Exam deferred due to COVID 19 pandemic. Results & Data ([facility]) Vital Signs (Past 12 Hours) Vital Signs Temp Pulse Resp BP Pulse Ox 09/23/19 07:22 36.8 C 91 H 16 136/81 99 09/23/19 00:42 37.6 C H 09/22/19 23:22 38.3 C H 97 H 20 164/92 H 94 Laboratory Results Laboratory Results - last 24 hr 09/22/19 09/22/19 09/22/19 23:59 23:59 23:59 WBC RBC Hgb Hct MCV MCH MCHC RDW Std Deviation RDW Coeff of Vivienne Plt Count MPV Sodium Potassium Chloride Carbon Dioxide Anion Gap BUN Creatinine Est Cr Clr Drug Dosing Est GFR ( Amer) Est GFR (Non-Af Amer) BUN/Creatinine Ratio Glucose Calcium Phosphorus Magnesium Total Bilirubin AST ALT Alkaline Phosphatase Total Protein Albumin Globulin Albumin/Globulin Ratio Urine Color Yellow Urine Appearance Clear Urine pH 5.0 Ur Specific Aurora 1.012 Urine Protein Negative Urine Glucose (UA) Negative Urine Ketones Negative Urine Blood Negative Urine Nitrite Negative Urine Bilirubin Negative Urine Urobilinogen Negative Ur Leukocyte Esterase Negative COVID-19 Eval Order Covid19 Sent to[facility]X SARS-CoV-2 RNA (RT-PCR) Pending 09/23/19 09/23/19 05:38 05:38 WBC 13.97 H RBC 4.14 L Hgb 13.3 L Hct 38.1 L MCV 92.0 MCH 32.1 MCHC 34.9 RDW Std Deviation 43.8 RDW Coeff of Vivienne 13.2 Plt Count 153 MPV 11.8 H Sodium 147 H Potassium 5.2 H D Chloride 120 H Carbon Dioxide 24 Anion Gap 3.0 BUN 10 Creatinine 0.86 Est Cr Clr Drug Dosing 78.2 Est GFR ( Amer) 104.0 Est GFR (Non-Af Amer) 89.7 BUN/Creatinine Ratio 11.9 Glucose 132 H Calcium 8.3 L Phosphorus 2.6 Magnesium 2.2 Total Bilirubin 0.8 AST 47 H ALT 45 Alkaline Phosphatase 86 Total Protein 6.5 Albumin 2.3 L Globulin 4.2 H Albumin/Globulin Ratio 0.5 L Urine Color Urine Appearance Urine pH Ur Specific Aurora Urine Protein Urine Glucose (UA) Urine Ketones Urine Blood Urine Nitrite Urine Bilirubin Urine Urobilinogen Ur Leukocyte Esterase COVID-19 Eval Order SARS-CoV-2 RNA (RT-PCR) PG Care Time/CCT Total # of Minutes Spent Total Time Spent with Patient: Total time spent is greater than 50% in coordination of care (as documented) at patient's floor/unit and/or counseling patient: Coding Level of Care Code 66929 Subseq Hosp Care Lvl 3 Diagnoses Hypernatremia E87.0 Acute renal failure N17.9 Alzheimer disease G30.9; F02.80
--- NOTE | 2019-09-23 14:19 | Hospitalist Progress Note ---
Date of Service September 23, 2019 Assessment & Plan (1) Pneumonia: Over night of 09/21-09/22, had fever. CXR shows new LLL infiltrate with new leukocytosis in the AM. UA was clear. - Blood cultures drawn prior to abx - Started on levofloxacin, but will switch to Unasyn for better Gram(-) and an aerobic coverage in case of aspiration. (2) Hypernatremia: Presumed due to dehydration and lack of free water intake. - Free water deficit still ~4L -> D5w rate slowed to 100 mL by nephrology on 09/19. - Consulted nephrology -> Appreciate recs. Improving gradually as desired. Down to 147 today. Replete other electrolytes as needed. - More alert now and eagerly eating food and drinking. Still no coherent verbal responses that I have witnessed. (3) Alzheimer disease: Per son, baseline is that he is able to walk around and have some simple conversations. At present, he moans and smiles in response to questions, but does look at you. - Palliative care consult given poor cognitive status -> Appreciate recs. - Evaluated by speech on 09/21 & 09/22 with rec for pured diet and honey thick liquids. Very possible that he is chronically, mildly aspirating. (see above) - Held donepezil, escitalopram, divalproex, trazodone for altered mental status - On 09/22, will restart lower dose divalproex & trazodone -> Try to start low to help minimize abrupt mental status changes. (4) Acute renal failure: Acute kidney failure, POA. Unknown baseline. Cr was 1.8 on admission. - Down to 0.8 today. Resolved. (5) Hypertension: BP presently 135/80. - Hold irbesartan for now (6) DVT prophylaxis: Lovenox Admission and Anticipated Discharge Date Admission Date: September 19, 2019 Subjective Moans and smiles in response to questions. Review of Systems Review of Systems: Unobtainable due to cognitive status Physical Exam Constitutional: WD/WN, vitals as above + acute distress Eyes: EOM intact bilaterally; no conjunctival abnormality ENMT: external ear and nose normal, oropharynx normal Neck: trachea midline, no thyromegaly normal visual inspection Respiratory: normal respiratory effort, lungs clear to auscultation no respiratory distress Cardiovascular: RRR, no murmur, no edema Gastrointestinal (Abdomen): Inspection/Auscultation: abdomen normal to inspection; abdomen not distended Musculoskeletal: no cyanosis or clubbing, extremities motor strength 5/5 Skin: no rashes, warm and dry Neurologic: moves all extremities; + not awake Psychiatric: Orientation: + not alert, + not oriented to person and + uncooperative Results & Data Results & Data ([facility]) Vital Signs (Past 12 Hours) Vital Signs Temp Pulse Resp BP Pulse Ox 09/23/19 07:22 36.8 C 91 H 16 136/81 99 PG Care Time/CCT Total # of Minutes Spent Total Time Spent with Patient: Total time spent is greater than 50% in coordination of care (as documented) at patient's floor/unit and/or counseling patient: Coding Level of Care Code 61067 Subseq Hosp Care Lvl 3 Diagnoses Pneumonia J18.9 Hypernatremia E87.0 Alzheimer disease G30.9; F02.80 Acute renal failure N17.9 Hypertension I10 DVT prophylaxis Z29.9
[2019-09-23] MEDS: AMPICILLIN/SULBACTAM SOD 3,000 MG in 0.9 % SODIUM CHLORIDE 100 ML IV SCH ×2 (17:37→22:01)
[2019-09-23] MEDS: risperiDONE 0.5 MG TABLET PO SCH (22:01)
[2019-09-24] MEDS: DEXTROSE 5% 1,000 ML IV SCH ×3 (00:19→15:43)
[2019-09-24] MEDS: AMPICILLIN/SULBACTAM SOD 3,000 MG in 0.9 % SODIUM CHLORIDE 100 ML IV SCH ×4 (04:47→21:30)
[2019-09-24 06:03] LABS: Mean Corpuscular Hemoglobin 31.3 pg (25-34); Mean Corpuscular Hgb Conc 34.1 g/dL (32-36); Mean Corpuscular Volume 91.7 fL (80-100); Mean Platelet Volume 11.6 fL (7.4-10.4); Platelet Count 215 K/uL (130-400); RDW Coefficient of Variation 13.4 % (11.5-14.5); RDW Standard Deviation 44.2 fL (36.4-46.3); Red Blood Count 4.47 M/uL (4.7-6.1); White Blood Count 20.26 K/uL (4.8-10.8)
[2019-09-24 06:41] LABS: Calcium 8.5 mg/dl (8.5-10.1); Creatinine Clr Calc Pharmacy 73.1 ml/min; Est GFR (African American) 99.4; Est GFR (Non-African American) 85.8; Magnesium 2.2 mg/dl (1.8-2.4); Potassium 4.3 mmol/L (3.5-5.1)
--- NOTE | 2019-09-24 08:57 | Hospitalist Progress Note ---
Date of Service September 24, 2019 Assessment & Plan (1) Pneumonia: * Over night of 09/21-09/22, had fever 38.3C. CXR shows new LLL infiltrate with new leukocytosis in the AM. UA was clear. * Blood cultures pending --> repeat drawn (1/2 sets positive with gram + cocci from 09/21 likely contaminant) -- follow * Initiated on levofloxacin and then switched to Unasyn (for aspiration pneumonia). Evaluated by speech and pt possibly chronically aspirating --> continue for now. Monitor CBC as WBC up to 20.2k today. * Continue to monitor * 93% on RA. Xopenex prn (2) Hypernatremia: * Presumed due to dehydration and lack of free water intake. --> Na up to 179 on admission. * Nephrology on consult -- appreciate assistance. Giving additional D5W for next 24 hours * Na down to 141 today * Continue to monitor (3) Alzheimer disease: * Per son, baseline is that he is able to walk around and have some simple conversations. At present, he moans and smiles in response to questions, but does look at you. * Palliative care consult given poor cognitive status -> Appreciate recs. Living will did state conservative measures but if this is new baseline, son may have hard time accepting this. Will reach out to have them speak with son again tomorrow. If he does not return to baseline this patient would qualify for hospice services with a diagnosis of Senile Degeneration of the Brain * Evaluated by speech on 09/21 & 09/22 with rec for pured diet and honey thick liquids. Very possible that he is chronically, mildly aspirating. (see above) * Held donepezil, escitalopram, divalproex, trazodone for altered mental status * On 09/22, restarted lower dose divalproex & trazodone -> Try to start low to help minimize abrupt mental status changes (4) Acute renal failure: * Acute kidney failure, POA. Unknown baseline. Cr was 1.8 on admission. * Improved * Cr 0.92 * Continue to monitor (5) Hypertension: * Chronic. BP currently 134/76 * Holding irbesartan for now given free water deficient/dehydration * Continue to monitor (6) DVT prophylaxis: * Lovenox If tomorrow patient cognitive status not improved as hypernatremia resolved and pneumonia being treated, would consider palliative re-discussing possible home with hospice (previously from personal care in [place]) Admission and Anticipated Discharge Date Admission Date: September 19, 2019 Supervising Physician Co-Signing Physician Notes BOLIVAR Supervision Note: I did not personally see or examine the patient today, but I verified all napoles points of BOLIVAR Lepe's assessment and plan with the following exceptions/additions: None Subjective Patient evaluated this morning. Still moans with incoherent answers to questions. Per nursing, patient did eat more breakfast today than in past. Did have some pocketing of his eggs, but otherwise did well. Had a bowel movement. No acute distress. Recently cleaned up. Allevyn to buttocks. Review of Systems Review of Systems: Unobtainable due to cognitive status Physical Exam Constitutional: WD/WN, vitals as above no acute distress Eyes: EOM intact bilaterally; no conjunctival abnormality ENMT: external ear and nose normal, oropharynx normal Neck: trachea midline, no thyromegaly normal visual inspection Respiratory: normal respiratory effort, lungs clear to auscultation no respiratory distress Cardiovascular: RRR, no murmur, no edema Gastrointestinal (Abdomen): Inspection/Auscultation: abdomen normal to inspection; abdomen not distended Musculoskeletal: Head/Neck/Chest: normocephalic and head atraumatic mvoes all extremities Skin: no rashes, warm and dry Neurologic: moves all extremities; + not awake Psychiatric: Orientation: + not alert, + not oriented to person and + unco operative Results & Data Results & Data ([facility]) Vital Signs (Past 12 Hours) Vital Signs Temp Pulse Resp BP BP Pulse Ox 09/24/19 07:19 37.6 C H 113 H 18 159/77 H 97 09/23/19 23:08 36.9 C 99 H 20 119/69 94 Laboratory Results 09/24/19 09/24/19 09/22/19 Range/Units 05:16 05:16 00:10 WBC 20.26 H (4.8-10.8) K/uL RBC 4.47 L (4.7-6.1) M/uL Hgb 14.0 (14.0-18.0) g/dL Hct 41.0 L (42-52) % MCV 91.7 (80-100) fL MCH 31.3 (25-34) pg MCHC 34.1 (32-36) g/dL RDW Std Deviation 44.2 (36.4-46.3) fL RDW Coeff of Vivienne 13.4 (11.5-14.5) % Plt Count 215 (130-400) K/uL MPV 11.6 H (7.4-10.4) fL Sodium 141 (136-145) mmol/L Potassium 4.3 D (3.5-5.1) mmol/L Chloride 111 H (98-107) mmol/L Carbon Dioxide 25 (21-32) mmol/L Anion Gap 5.0 (3-11) BUN 14 (7-18) mg/dl Creatinine 0.92 (0.6-1.4) mg/dl Est Cr Clr Drug Dosing 73.1 ml/min Est GFR ( Amer) 99.4 Est GFR (Non-Af Amer) 85.8 BUN/Creatinine Ratio 15.0 (10-20) Glucose 148 H (70-99) mg/dl Calcium 8.5 (8.5-10.1) mg/dl Magnesium 2.2 (1.8-2.4) mg/dl Bld Cult Staph aureus PCR Negative (Negative) Blood Culture MRSA PCR Negative (Negative) PG Care Time/CCT Total # of Minutes Spent Total Time Spent with Patient: Total time spent is greater than 50% in coordination of care (as documented) at patient's floor/unit and/or counseling patient: Coding Level of Care Code 33552 Subseq Hosp Care Lvl 3 Diagnoses Pneumonia J18.9 Hypernatremia E87.0 Alzheimer disease G30.9; F02.80 Acute renal failure N17.9 Hypertension I10 DVT prophylaxis Z29.9
[2019-09-24] MEDS: ENOXAPARIN INJ 40 MG/0.4 ML SYR SQ SCH (09:11)
--- NOTE | 2019-09-24 09:42 | Nephrology Progress Note ---
Date of Service September 24, 2019 Assessment & Plan (1) Hypernatremia: Improving. Tolerating IV free water replacement. I would continue IV D5W for at least an additional 24 hours prior to stopping. Unfortunately, Scar does not seem to be taking adequate oral replacement. Document input. I do not have anything additional to add in terms of management at this time. Nephrology will sign-off. Please call with questions or concerns. (2) Acute renal failure: Due to dehydration. BP acceptable. Creatinine normalized. Non-oliguric. (3) Alzheimer disease: Baseline mental status unclear to me but advanced dementia noted. 1:1 remains at bedside. Tolerating some PO. Admission and Anticipated Discharge Date Admission Date: September 19, 2019 Subjective Tolerating thickened liquids but drinking very little. Requires encouragement to take food or drink. Ate approximately 50% breakfast. I did not personally exam Mr. Bhagat today but I did speak with his bedside nurse. Tmax 37.6. WBC 20,000. 1/2 blood cultures GPC. No interval change in mental status. Review of Systems Review of Systems: Unobtainable due to cognitive status Physical Exam Physical Exam: Exam deferred due to COVID 19 pandemic. Neurologic: + confused Results & Data ([facility]) Vital Signs (Past 12 Hours) Vital Signs Temp Pulse Resp BP BP Pulse Ox 09/24/19 07:19 37.6 C H 113 H 18 159/77 H 97 09/23/19 23:08 36.9 C 99 H 20 119/69 94 Laboratory Results Laboratory Results - last 24 hr 09/22/19 09/24/19 09/24/19 00:10 05:16 05:16 WBC 20.26 H RBC 4.47 L Hgb 14.0 Hct 41.0 L MCV 91.7 MCH 31.3 MCHC 34.1 RDW Std Deviation 44.2 RDW Coeff of Vivienne 13.4 Plt Count 215 MPV 11.6 H Sodium 141 Potassium 4.3 D Chloride 111 H Carbon Dioxide 25 Anion Gap 5.0 BUN 14 Creatinine 0.92 Est Cr Clr Drug Dosing 73.1 Est GFR ( Amer) 99.4 Est GFR (Non-Af Amer) 85.8 BUN/Creatinine Ratio 15.0 Glucose 148 H Calcium 8.5 Magnesium 2.2 Bld Cult Staph aureus PCR Negative Blood Culture MRSA PCR Negative PG Care Time/CCT Total # of Minutes Spent Total Time Spent with Patient: Total time spent is greater than 50% in coordination of care (as documented) at patient's floor/unit and/or counseling patient: Coding Level of Care Code 76150 Subseq Hosp Care Lvl 3 Diagnoses Hypernatremia E87.0 Acute renal failure N17.9 Alzheimer disease G30.9; F02.80
[2019-09-24] MEDS ORDERED: LEVALBUTEROL HCL 0.63 MG/3 ML NEB NEB PRN (18:59)
[2019-09-24] MEDS: risperiDONE 0.5 MG TABLET PO SCH (21:34)
[2019-09-25] MEDS: DEXTROSE 5% 1,000 ML IV SCH ×2 (00:20→09:52)
[2019-09-25] MEDS: AMPICILLIN/SULBACTAM SOD 3,000 MG in 0.9 % SODIUM CHLORIDE 100 ML IV SCH ×2 (04:41→09:13)
[2019-09-25 06:18] LABS: Basophils # (auto) 0.01 K/uL (0-0.2); Eosinophils # (auto) 0.28 K/uL (0-0.5); Eosinophils % (auto) 1.2 %; Hematocrit (blood only) 33.9 % (42-52); Hemoglobin 11.8 g/dL (14.0-18.0); Immature Granulocytes # (auto) 0.13 K/uL (0.00-0.02); Immature Granulocytes % (auto) 0.5 %; Lymphocytes # (auto) 2.32 K/uL (1.2-3.4); Lymphocytes % (auto) 9.6 %; Mean Corpuscular Hemoglobin 31.6 pg (25-34); Mean Corpuscular Hgb Conc 34.8 g/dL (32-36); Mean Corpuscular Volume 90.9 fL (80-100); Mean Platelet Volume 11.1 fL (7.4-10.4); Monocytes # (auto) 2.28 K/uL (0.11-0.59); Monocytes % (auto) 9.4 %; Neutrophils # (auto) 19.15 K/uL (1.4-6.5); Neutrophils % (auto) 79.3 %; Platelet Count 218 K/uL (130-400); RDW Coefficient of Variation 13.5 % (11.5-14.5); RDW Standard Deviation 43.6 fL (36.4-46.3); Red Blood Count 3.73 M/uL (4.7-6.1); White Blood Count 24.17 K/uL (4.8-10.8)
[2019-09-25 07:02] LABS: BUN Creatinine Ratio 19.2 (10-20); Calcium 8.1 mg/dl (8.5-10.1); Creatinine Clr Calc Pharmacy 85.1 ml/min; Est GFR (African American) 107.7; Est GFR (Non-African American) 92.9; Potassium 3.6 mmol/L (3.5-5.1)
[2019-09-25 07:07] LABS: Thyroid Stimulating Hormone 0.984 uIu/ml (0.300-4.500)
--- NOTE | 2019-09-25 08:55 | Hospitalist Progress Note ---
Date of Service September 25, 2019 Assessment & Plan (1) Pneumonia: * Over night of 09/21-09/22 fever, Tmax 38.3C. CXR shows new LLL infiltrate with new leukocytosis in the AM. UA was clear on admission. Low grade temp 37.6C AM 09/23 * Blood cultures pending --> repeat drawn (1/2 sets positive micrococcus species, no sensitivities, likely contaminant). * Repeat Bcl pending-- follow * with gram + cocci from 09/21 likely contaminant) -- follow * Initiated on levofloxacin and then switched to Unasyn on 09/22 for aspiration pneumonia * --> will switch to Zosyn for coverage for pseudomonas given increase in WBC up to 24.1k today * Evaluated by speech and pt possibly chronically aspirating * Repeat CXR pending, Repeat UA (hernandez inserted during admission but initial UA clean) * 95% on RA. Xopenex prn * COVID testing still pending * Continue to monitor (2) Hypernatremia: * Presumed due to dehydration and lack of free water intake. --> Na up to 179 on admission. * Nephrology on consult -- appreciate assistance. Given additional D5W for 24 hours --> will stop for now as Na 139 and see if patient able to take enough PO to maintain this * Continue to monitor (3) Alzheimer disease: * Per son, baseline is that he is able to walk around and have some simple conversations. At present, he moans and smiles in response to questions, but does look at you. * Palliative care consult given poor cognitive status -> Appreciate recs. Living will did state conservative measures but if this is new baseline, son may have hard time accepting this. Will reach out to have them speak with son again tomorrow. If he does not return to baseline this patient would qualify for hospice services with a diagnosis of Senile Degeneration of the Brain * Evaluated by speech on 09/21 & 09/22 with rec for pured diet and honey thick liquids. Very possible that he is chronically, mildly aspirating. (see above) * Held donepezil, escitalopram, divalproex, trazodone for altered mental status * On 09/24--> restarted divalproex and low dose trazodone 12.5mg (to help with sundowning)-> Try to start low to help minimize abrupt mental status changes * Will also add B1 level to AM labs (4) Acute renal failure: * Acute kidney failure, POA. Unknown baseline. Cr was 1.8 on admission. * RESOLVED * Cr 0.79 * Continue to monitor (5) Hypertension: * Chronic. BP currently 147/81 * Will resume irbesartan AM 09/24 -- initially held in setting of CLARITZA/dehydration * Continue to monitor (6) Anemia: * H/h dropped from 14/41 to 11.8/33.9. Had been receiving IVF, now discontinued. MCV 90.8 (previously 97.6 on admit) -- will order iron studies, B12, folate. * CBC in AM (7) DVT prophylaxis: * Lovenox Given L eye bruising and probable fall at some point, no imaging done of brain --> will obtain CT head w/o to r/o other causes of AMS If tomorrow patient cognitive status not improved as hypernatremia resolved and pneumonia being treated, would consider palliative re-discussing possible home with hospice (previously from personal care in [place]). Admission and Anticipated Discharge Date Admission Date: September 19, 2019 Supervising Physician Co-Signing Physician Notes PA Supervision Note: I did not personally see or examine the patient today, but I verified all napoles points of BOLIVAR Lepe's assessment and plan with the following exceptions/additions: None Subjective Patient evaluated this morning. Still non-verbal. Moans at any questions. Resting comfortably in bed in no acute distress. Per nursing, patient consumed 100% of dinner and 100% of breakfast this morning. When given water, patient actively attempting to take fluids. Less restless, did receive 0.25mg risperidone last evening. Discussed continuing to keep Hernandez in for now but to repeat UA given increase in WBCs and on IV abx for PNA. Review of Systems Review of Systems: Unobtainable due to cognitive status Physical Exam Constitutional: + physical limitations and + frail appearing; no acute distress Eyes: + anicteric sclerae; no conjunctival abnormality ENMT: Ears: no EAC abnormality Nose: no external nose abnormality L eye ecchymosis Neck: trachea midline, no thyromegaly Respiratory: no respiratory distress and no labored breathing Auscultation: + rhonchi (inspiratory and expiratory) and + bronchial breath sounds; no wheezes Cardiovascular: RRR, no murmur, no edema Gastrointestinal (Abdomen): Inspection/Auscultation: abdomen normal to inspection; abdomen not distended Musculoskeletal: Head/Neck/Chest: normocephalic and head atraumatic mvoes all extremities Skin: cool, dry Neurologic: moves all extremities; + not awake Psychiatric: Orientation: + not alert, + not oriented to person, + not oriented to place and + not oriented to time Genitourinary: hernandez draining yellow urine Lymphatic: no cervical or axillary lymphadenopathy Results & Data Results & Data ([facility]) Vital Signs (Past 12 Hours) Vital Signs Temp Pulse Resp BP Pulse Ox 09/25/19 05:04 37.4 C 104 H 20 125/77 95 09/24/19 23:25 37.4 C 104 H 18 114/69 94 Laboratory Results 09/25/19 09/25/19 09/22/19 Range/Units 06:02 06:02 00:10 WBC 24.17 H (4.8-10.8) K/uL RBC 3.73 L (4.7-6.1) M/uL Hgb 11.8 L (14.0-18.0) g/dL Hct 33.9 L (42-52) % MCV 90.9 (80-100) fL MCH 31.6 (25-34) pg MCHC 34.8 (32-36) g/dL RDW Std Deviation 43.6 (36.4-46.3) fL RDW Coeff of Vivienne 13.5 (11.5-14.5) % Plt Count 218 (130-400) K/uL MPV 11.1 H (7.4-10.4) fL Immature Gran % (Auto) 0.5 % Neut % (Auto) 79.3 % Lymph % (Auto) 9.6 % [place] % (Auto) 9.4 % Eos % (Auto) 1.2 % Baso % (Auto) 0.0 % Neut # (Auto) 19.15 H (1.4-6.5) K/uL Lymph # (Auto) 2.32 (1.2-3.4) K/uL [place] # (Auto) 2.28 H (0.11-0.59) K/uL Eos # (Auto) 0.28 (0-0.5) K/uL Baso # (Auto) 0.01 (0-0.2) K/uL Immature Gran # (Auto) 0.13 H (0.00-0.02) K/uL Sodium 139 (136-145) mmol/L Potassium 3.6 D (3.5-5.1) mmol/L Chloride 109 H (98-107) mmol/L Carbon Dioxide 23 (21-32) mmol/L Anion Gap 7.0 (3-11) BUN 15 (7-18) mg/dl Creatinine 0.79 (0.6-1.4) mg/dl Est Cr Clr Drug Dosing 85.1 ml/min Est GFR ( Amer) 107.7 Est GFR (Non-Af Amer) 92.9 BUN/Creatinine Ratio 19.2 (10-20) Glucose 146 H (70-99) mg/dl Calcium 8.1 L (8.5-10.1) mg/dl TSH 0.984 (0.300-4.500) uIu/ml Bld Cult Staph aureus PCR Negative (Negative) Blood Culture MRSA PCR Negative (Negative) PG Care Time/CCT Total # of Minutes Spent Total Time Spent with Patient: Total time spent is greater than 50% in coordination of care (as documented) at patient's floor/unit and/or counseling patient: Coding Level of Care Code 16944 Subseq Hosp Care Lvl 3 Diagnoses Pneumonia J18.9 Hypernatremia E87.0 Alzheimer disease G30.9; F02.80 Acute renal failure N17.9 Hypertension I10 Anemia D64.9 DVT prophylaxis Z29.9
[2019-09-25] MEDS: ENOXAPARIN INJ 40 MG/0.4 ML SYR SQ SCH (09:16)
[2019-09-25 10:09] LABS: Appearance Urine Clear (Clear); Bilirubin Urine Negative (Negative); Blood Urine Trace (Negative); Color Urine Yellow; Glucose Urine UA Negative (Negative); Ketones Urine Negative (Negative); Leukocyte Esterase Urine Negative (Negative); Nitrite Urine Negative (Negative); Protein Urine Negative (Negative); Specific Gravity Urine 1.008 (1.000-1.030); Urobilinogen Urine Negative (Negative)
[2019-09-25] MEDS ORDERED: PIPERACILL/TAZOBAC CONSULT ACTIVE PRN (10:12)
[2019-09-25 10:14] LABS: Bilirubin Direct 0.2 mg/dl (0-0.2); Bilirubin,Total 0.6 mg/dl (0.2-1); Total Protein 6.3 gm/dl (6.4-8.2)
[2019-09-25 10:23] LABS: RBC Urine Automated 0-4 /hpf (0-4)
[2019-09-25 10:25] LABS: Bacteria Urine Automated Negative (Negative); Cast Urine Automated 0 /lpf (0-5); Epithelial Cell Urine Auto 0-5 /lpf (0-5)
[2019-09-25] MEDS ORDERED: PIPERACILLIN/TAZOBACTAM 4.5 GM in DEXTROSE 5% 100 ML IV ONE (10:30)
--- NOTE | 2019-09-25 12:19 | XRay Report ---
XR chest 1V portable CLINICAL HISTORY: f/u PNA pneumonia COMPARISON STUDY: 09/22/2019 FINDINGS: Improved exam. The lungs are now considered clear. Diaphragms are smooth. IMPRESSION: The lungs are now considered clear. Negative chest. ACT 112: Negative or not required by law. The above report was generated using voice recognition software. It may contain grammatical, syntax or spelling errors. Electronically signed by: Jordan Rocha M.D. 09/25/2019 12:18 PM
[2019-09-25] MEDS: DIVALPROEX DELAY RELEASE 125 MG TABEC PO SCH ×2 (14:17→21:08)
[2019-09-25] MEDS: PIPERACILLIN/TAZOBACTAM 3.375 GM in DEXTROSE 5% 100 ML IV SCH (16:32)
--- NOTE | 2019-09-25 17:00 | CT Scan Report ---
CT OF THE HEAD WITHOUT CONTRAST CLINICAL HISTORY: AMS, drooling, increased weakness/lethargy COMPARISON STUDY: No previous studies for comparison. CT DOSE: 614.27 mGy.cm TECHNIQUE: Helical axial images of the head were obtained without IV contrast. Automated exposure con trol was utilized for the study. A dose lowering technique was utilized adhering to the principles o f ALARA. FINDINGS: No acute intracranial hemorrhage, midline shift or mass effect is present. Mild ventricular dilatation is due to atrophy. The atrophy is most pronounced within the bilateral temporal lobe. Whi te matter hypodensity suggests small vessel disease. There are no findings to suggest acute dural sin us thrombosis or acute territorial infarct. No calvarial fracture is present. Visualized portions of the sinuses and mastoid air cells are clear. IMPRESSION: 1. No acute intracranial findings. 2. Moderate to marked atrophy, most pronounced within the temporal lobes. This accounts for mild vent ricular dilatation. 3. White matter hypodensities suggestive of small vessel disease. ACT 112: Negative or not required by law. Electronically signed by: Meir Brambila M.D. 09/25/2019 4:59 PM
[2019-09-25] MEDS: TRAZODONE HCL 50 MG TAB PO SCH (21:07)
[2019-09-25] MEDS: risperiDONE 0.5 MG TABLET PO SCH (21:08)
[2019-09-26] MEDS: PIPERACILLIN/TAZOBACTAM 3.375 GM in DEXTROSE 5% 100 ML IV SCH ×3 (00:10→17:58)
[2019-09-26] MEDS ORDERED: ACETAMINOPHEN 1,000 MG/100 ML VIAL IV STA (00:49)
[2019-09-26 06:26] LABS: Basophils # (auto) 0.01 K/uL (0-0.2); Basophils % (auto) 0.1 %; Eosinophils # (auto) 0.36 K/uL (0-0.5); Eosinophils % (auto) 2.4 %; Hematocrit (blood only) 28.5 % (42-52); Immature Granulocytes # (auto) 0.09 K/uL (0.00-0.02); Immature Granulocytes % (auto) 0.6 %; Lymphocytes # (auto) 2.49 K/uL (1.2-3.4); Lymphocytes % (auto) 16.8 %; Mean Corpuscular Hemoglobin 32.1 pg (25-34); Mean Corpuscular Hgb Conc 35.1 g/dL (32-36); Mean Corpuscular Volume 91.3 fL (80-100); Mean Platelet Volume 10.6 fL (7.4-10.4); Monocytes # (auto) 1.49 K/uL (0.11-0.59); Neutrophils # (auto) 10.41 K/uL (1.4-6.5); Neutrophils % (auto) 70.1 %; Platelet Count 222 K/uL (130-400); RDW Coefficient of Variation 13.8 % (11.5-14.5); RDW Standard Deviation 44.7 fL (36.4-46.3); Red Blood Count 3.12 M/uL (4.7-6.1); White Blood Count 14.85 K/uL (4.8-10.8)
[2019-09-26 07:01] LABS: Albumin Level 1.6 gm/dl (3.4-5.0); BUN Creatinine Ratio 22.8 (10-20); Calcium 7.1 mg/dl (8.5-10.1); Est GFR (African American) 106.1; Est GFR (Non-African American) 91.5; Potassium 3.4 mmol/L (3.5-5.1)
[2019-09-26 07:04] LABS: Albumin Globulin Ratio 0.4 (0.9-2); Bilirubin,Total 0.5 mg/dl (0.2-1); Ferritin 793.2 ng/ml (8-388); Globulin 3.9 gm/dl (2.5-4.0); Total Protein 5.5 gm/dl (6.4-8.2)
[2019-09-26] MEDS: IRBESARTAN 75 MG TAB PO SCH (08:19)
[2019-09-26] MEDS: DIVALPROEX DELAY RELEASE 125 MG TABEC PO SCH ×3 (08:20→21:33)
[2019-09-26] MEDS ORDERED: POTASSIUM CHLORIDE 10 MEQ TABCR PO STA (08:21)
[2019-09-26] MEDS: ENOXAPARIN INJ 40 MG/0.4 ML SYR SQ SCH (08:23)
[2019-09-26] MEDS ORDERED: DEXTROSE 5% 1,000 ML IV SCH (08:45)
--- NOTE | 2019-09-26 09:50 | Hospitalist Progress Note ---
Date of Service September 26, 2019 Assessment & Plan (1) Pneumonia: * Over night of 09/21-09/22 fever, Tmax 38.3C. CXR shows new LLL infiltrate with new leukocytosis in the AM. UA was clear on admission. Low grade temp 37.6C AM 09/23 * 1/2 sets BCx 09/21 with microccus species, likely contaminant. * Patient Temp up to 39.1C overnight 09/24-09/25 which only came to 38.3 after tylenol * Switched to Zosyn on 09/24 from Unasyn (started on 09/22 for aspiration pneumonia, initially placed on levaquin) for pseudomonas coverage given increase in WBC up to 24k on 09/24, down to 14.8k * Evaluated by speech and pt possibly chronically aspirating * Repeat CXR now considered clear. Repeat UA without evidence of infection. 94% on RA * COVID NEGATIVE resulted evening 09/25. can d/c precautions With continued elevated temps and slight bump in AST on prior labs, sent for possible anaplasmosis --> evidence of sole inclusion body suspicious for Anaplasmosis and started Doxy IV. 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 Follow PCR (3) Anemia: * H/h dropped from 14/41 to 11.8/33.9. Had been receiving IVF, now discontinued. MCV 90.8 (previously 97.6 on admit) -- * Iron studies, B12/folate obtained --> iron studies c/w anemia of chronic disease however B12 low at 342, Folate low at 3.12 * Will order B12 1000mcg daily while inpatient and will likely need continued supplementation * Giving folic acid IV given issues with aspiration for ease of administration * Continue to monitor CBC (4) B12 deficiency: * Has anemia of chronic disease on iron studies, but added B12/folate for possible mixed anemia --> * Daily IM while inpatient as above with need for continuation at discharge (5) Folate deficiency: * See above (6) Hypernatremia: * Presumed due to dehydration and lack of free water intake. --> Na up to 179 on admission. * Nephrology on consult -- appreciate assistance. Given additional D5W for 24 hours, stopped on 09/24 but did end up ordering additional liter today * Na 142 on AM labs * Continue to monitor (7) Alzheimer disease: * Per son, baseline is that he is able to walk around and have some simple conversations. At present, he moans and smiles in response to questions, but does look at you. * Palliative care consult given poor cognitive status -> Appreciate recs. Living will did state conservative measures but if this is new baseline, son may have hard time accepting this. Will reach out to have them speak with son again tomorrow. If he does not return to baseline this patient would qualify for hospice services with a diagnosis of Senile Degeneration of the Brain * Evaluated by speech on 09/21 & 09/22 with rec for pured diet and honey thick liquids. Very possible that he is chronically, mildly aspirating. (see above) * Held donepezil, escitalopram, divalproex, trazodone for altered mental status * On 09/24--> restarted divalproex and low dose trazodone 12.5mg (to help with sundowning)-> Try to start low to help minimize abrupt mental status changes. Continuing at lower dose for now but may be able to titrate some tomorrow * Now that B1 level obtained, will initiated on oral replacement proactively * CT with significant bilateral temporal lobe atrophy, aiding in progression of Alzheimer's * PT/OT evals ordered to see if patient might possible qualify for SNF with possibility of hospice being available at his [facility] (8) Acute renal failure: * Acute kidney failure, POA. Unknown baseline. Cr was 1.8 on admission. * RESOLVED * Cr 0.82, although BUN/Cr slightly elevated at 22.8. Will order IVF as above then stop * Continue to monitor (9) Hypertension: * Chronic. BP currently 138/69 * Conitnue irbesartan -- initially held in setting of CLARITZA/dehydration * Continue to monitor (10) Hypokalemia: * K 3.4 on am labs -- ordered oral replacement * monitor on am labs (11) DVT prophylaxis: * Lovenox If tomorrow patient cognitive status not improved as hypernatremia resolved and pneumonia being treated, would consider palliative re-discussing possible home with hospice (previously from personal care in [place]). Admission and Anticipated Discharge Date Admission Date: September 19, 2019 Supervising Physician Co-Signing Physician Notes PA Supervision Note: I did not personally see or examine the patient today, but I verified all napoles points of BOLIVAR Lepe's assessment and plan with the following exceptions/additions: None Subjective Patient evaluated this morning. More awake and interacting today. Opens eyes and smiling when asked questions. Still moans in response and not able to verbalize any pain or discomfort. Resting comfortably in bed. Per nursing staff, patient has been continuing to eat all meals and take fluids by mouth. I attempted to reach son Brendan for update but got his voicemail again. Will call again with update tomorrow or sooner if he calls in. Review of Systems Review of Systems: Unobtainable due to cognitive status Physical Exam Constitutional: + physical limitations and + frail appearing; no acute distress Eyes: + anicteric sclerae; no conjunctival abnormality ecchymosis lateral left eye Respiratory: normal respiratory effort, lungs clear to auscultation no respiratory distress and no labored breathing Auscultation: + crackles (faint bibasilar ) Cardiovascular: RRR, no murmur, no edema Gastrointestinal (Abdomen): Inspection/Auscultation: abdomen normal to inspection; abdomen not distended Musculoskeletal: no cyanosis or clubbing, extremities motor strength 5/5 Head/Neck/Chest: normocephalic Skin: no rashes, warm and dry Neurologic: moves all extremities and awake Psychiatric: Orientation: alert; + not oriented to person, + not oriented to place and + not oriented to time Lymphatic: no cervical or axillary lymphadenopathy Results & Data Results & Data ([facility]) Vital Signs (Past 12 Hours) Vital Signs Temp Pulse Resp BP BP Pulse Ox 09/26/19 08:04 37.3 C 104 H 18 129/92 97 09/26/19 06:08 37.2 C 115 H 18 128/77 93 09/26/19 04:05 38.4 C H 09/26/19 02:30 38.3 C H 09/26/19 00:14 39.1 C H 120 H 16 105/64 95 09/25/19 23:12 37.8 C H 112 H 18 94/65 L 93 Laboratory Results 09/26/19 09/26/19 09/26/19 Range/Units 09:28 09:28 05:53 WBC (4.8-10.8) K/uL RBC (4.7-6.1) M/uL Hgb (14.0-18.0) g/dL Hct (42-52) % MCV (80-100) fL MCH (25-34) pg MCHC (32-36) g/dL RDW Std Deviation (36.4-46.3) fL RDW Coeff of Vivienne (11.5-14.5) % Plt Count (130-400) K/uL MPV (7.4-10.4) fL Immature Gran % (Auto) % Neut % (Auto) % Lymph % (Auto) % [place] % (Auto) % Eos % (Auto) % Baso % (Auto) % Neut # (Auto) (1.4-6.5) K/uL Lymph # (Auto) (1.2-3.4) K/uL [place] # (Auto) (0.11-0.59) K/uL Eos # (Auto) (0-0.5) K/uL Baso # (Auto) (0-0.2) K/uL Immature Gran # (Auto) (0.00-0.02) K/uL Peripher Smr Path Cons Sodium 142 (136-145) mmol/L Potassium 3.4 L (3.5-5.1) mmol/L Chloride 112 H (98-107) mmol/L Carbon Dioxide 23 (21-32) mmol/L Anion Gap 7.0 (3-11) BUN 19 H (7-18) mg/dl Creatinine 0.82 (0.6-1.4) mg/dl Est Cr Clr Drug Dosing 82.0 ml/min Est GFR ( Amer) 106.1 Est GFR (Non-Af Amer) 91.5 BUN/Creatinine Ratio 22.8 H (10-20) Glucose 104 H (70-99) mg/dl Calcium 7.1 L (8.5-10.1) mg/dl Iron 26 L (35-175) mcg/dl TIBC 113 L (250-450) mcg/dl Transferrin 101 L (200-360) mg/dl Transferrin % Sat 18 L (20-50) % Ferritin 793.2 H (8-388) ng/ml Total Bilirubin 0.5 (0.2-1) mg/dl AST 43 H (15-37) U/L ALT 42 (12-78) U/L Alkaline Phosphatase 77 (45-117) U/L Total Protein 5.5 L (6.4-8.2) gm/dl Albumin 1.6 L (3.4-5.0) gm/dl Globulin 3.9 (2.5-4.0) gm/dl Albumin/Globulin Ratio 0.4 L (0.9-2) Vitamin B1 Vitamin B12 (211-911) pg/ml Folate (>5.38) ng/ml Anaplasma Smear See Comment A A. phagocytophilum DNA Pending Anaplasma Comment Not Reportable SARS-CoV-2 RNA (RT-PCR) (NotDetected) 09/26/19 09/26/19 09/26/19 Range/Units 05:53 05:53 05:53 WBC 14.85 H (4.8-10.8) K/uL RBC 3.12 L (4.7-6.1) M/uL Hgb 10.0 L (14.0-18.0) g/dL Hct 28.5 L (42-52) % MCV 91.3 (80-100) fL MCH 32.1 (25-34) pg MCHC 35.1 (32-36) g/dL RDW Std Deviation 44.7 (36.4-46.3) fL RDW Coeff of Vivienne 13.8 (11.5-14.5) % Plt Count 222 (130-400) K/uL MPV 10.6 H (7.4-10.4) fL Immature Gran % (Auto) 0.6 % Neut % (Auto) 70.1 % Lymph % (Auto) 16.8 % [place]hea % (Auto) 10.0 % Eos % (Auto) 2.4 % Baso % (Auto) 0.1 % Neut # (Auto) 10.41 H (1.4-6.5) K/uL Lymph # (Auto) 2.49 (1.2-3.4) K/uL [place] # (Auto) 1.49 H (0.11-0.59) K/uL Eos # (Auto) 0.36 (0-0.5) K/uL Baso # (Auto) 0.01 (0-0.2) K/uL Immature Gran # (Auto) 0.09 H (0.00-0.02) K/uL Peripher Smr Path Cons Sodium (136-145) mmol/L Potassium (3.5-5.1) mmol/L Chloride (98-107) mmol/L Carbon Dioxide (21-32) mmol/L Anion Gap (3-11) BUN (7-18) mg/dl Creatinine (0.6-1.4) mg/dl Est Cr Clr Drug Dosing ml/min Est GFR ( Amer) Est GFR (Non-Af Amer) BUN/Creatinine Ratio (10-20) Glucose (70-99) mg/dl Calcium (8.5-10.1) mg/dl Iron (35-175) mcg/dl TIBC (250-450) mcg/dl Transferrin (200-360) mg/dl Transferrin % Sat (20-50) % Ferritin (8-388) ng/ml Total Bilirubin (0.2-1) mg/dl AST (15-37) U/L ALT (12-78) U/L Alkaline Phosphatase (45-117) U/L Total Protein (6.4-8.2) gm/dl Albumin (3.4-5.0) gm/dl Globulin (2.5-4.0) gm/dl Albumin/Globulin Ratio (0.9-2) Vitamin B1 Pending Vitamin B12 342 (211-911) pg/ml Folate 3.12 L (>5.38) ng/ml Anaplasma Smear A. phagocytophilum DNA Anaplasma Comment SARS-CoV-2 RNA (RT-PCR) (NotDetected) 09/22/19 Range/Units 23:59 WBC (4.8-10.8) K/uL RBC (4.7-6.1) M/uL Hgb (14.0-18.0) g/dL Hct (42-52) % MCV (80-100) fL MCH (25-34) pg MCHC (32-36) g/dL RDW Std Deviation (36.4-46.3) fL RDW Coeff of Vivienne (11.5-14.5) % Plt Count (130-400) K/uL MPV (7.4-10.4) fL Immature Gran % (Auto) % Neut % (Auto) % Lymph % (Auto) % [place] % (Auto) % Eos % (Auto) % Baso % (Auto) % Neut # (Auto) (1.4-6.5) K/uL Lymph # (Auto) (1.2-3.4) K/uL [place] # (Auto) (0.11-0.59) K/uL Eos # (Auto) (0-0.5) K/uL Baso # (Auto) (0-0.2) K/uL Immature Gran # (Auto) (0.00-0.02) K/uL Peripher Smr Path Cons Sodium (136-145) mmol/L Potassium (3.5-5.1) mmol/L Chloride (98-107) mmol/L Carbon Dioxide (21-32) mmol/L Anion Gap (3-11) BUN (7-18) mg/dl Creatinine (0.6-1.4) mg/dl Est Cr Clr Drug Dosing ml/min Est GFR ( Amer) Est GFR (Non-Af Amer) BUN/Creatinine Ratio (10-20) Glucose (70-99) mg/dl Calcium (8.5-10.1) mg/dl Iron (35-175) mcg/dl TIBC (250-450) mcg/dl Transferrin (200-360) mg/dl Transferrin % Sat (20-50) % Ferritin (8-388) ng/ml Total Bilirubin (0.2-1) mg/dl AST (15-37) U/L ALT (12-78) U/L Alkaline Phosphatase (45-117) U/L Total Protein (6.4-8.2) gm/dl Albumin (3.4-5.0) gm/dl Globulin (2.5-4.0) gm/dl Albumin/Globulin Ratio (0.9-2) Vitamin B1 Vitamin B12 (211-911) pg/ml Folate (>5.38) ng/ml Anaplasma Smear A. phagocytophilum DNA Anaplasma Comment SARS-CoV-2 RNA (RT-PCR) Not Detected (NotDetected) Diagnostic Findings Head CT IMPRESSION: 1. No acute intracranial findings. 2. Moderate to marked atrophy, most pronounced within the temporal lobes. This accounts for mild ventricular dilatation. 3. White matter hypodensities suggestive of small vessel disease. CXR IMPRESSION: The lungs are now considered clear. Negative chest. PG Care Time/CCT Total # of Minutes Spent Total Time Spent with Patient: Total time spent is greater than 50% in coordination of care (as documented) at patient's floor/unit and/or counseling patient: Coding Level of Care Code 58043 Subseq Hosp Care Lvl 3 Diagnoses Pneumonia J18.9 Anaplasmosis A77.49 Anemia D64.9 B12 deficiency E53.8 Folate deficiency E53.8 Hypernatremia E87.0 Alzheimer disease G30.9; F02.80 Acute renal failure N17.9 Hypertension I10 Hypokalemia E87.6 DVT prophylaxis Z29.9
[2019-09-26 09:52] LABS: Folate (Folic Acid) 3.12 ng/ml (>5.38)
--- NOTE | 2019-09-26 12:59 | Palliative Care Progress Note ---
Date of Service September 26, 2019 Assessment & Plan (1) Goals of care, counseling/discussion: -Patient waking more and moaning to touch, eating at times, intermittently, and able to say one or two words. -Patient has pending COVID-19 test and is on airborne precautions in a negative pressured room. -Patient has a newly discovered anaplasmosis diagnosis, receiving treatment. This could be contributing to the patients fever. -Son has previously mentioned that patient able to ambulate, would suggest PT/OT to evaluate this prior to D/C plans to assist and determine if patient needs SNF or if return to [place] with Hospice would be beneficial. -His son stated he would like for him to return to [facility]. I expressed that we will have to determine his functional and cognitive level for returning there. Right now, its likely they would only allow him to return if Hospice was involved. Moving forward if he does not return to baseline ambulation, This patient would qualify for hospice services with a diagnosis of Senile Degeneration of the Brain. -The patient does have a living will that indicates the patient would want conservative measures. I believe if this is the patients new baseline, the son will have a hard time with this new acceptance. -Palliative Care will follow and continue to assist with decision making as we gain more understanding of his illness and disease trajectory. -The above has been discussed with the hospitalist PA. Multiple attempts made today by both Palliative Care and the Hospitalist PA to discuss goals of care. Will continue to attempt in helping the family with decision making. -PPS: 20% (2) Alzheimer disease: (3) Hypernatremia: (4) Acute renal failure: Admission and Anticipated Discharge Date Admission Date: September 19, 2019 Subjective Patient appears to be returning closer back to his baseline status. Pt has woken up to eat, and over the last few days has eaten anywhere from 50- 75% of his meals. WBC is trending up and blood cultures have been obtained. Please see A/P for additional details. Review of Systems Review of Systems: Unobtainable due to cognitive status Physical Exam Constitutional: + ill appearing, + frail appearing, + combative and + lethargic Respiratory: normal respiratory effort, lungs clear to auscultation Auscultation: + diminished lung sounds Cardiovascular: RRR, no murmur, no edema Gastrointestinal (Abdomen): normal bowel sounds, soft, nontender, no hepatosplenomegaly Skin: + ecchymosis (around left eye) Psychiatric: Orientation: alert Insight: + impaired insight Judgement: + impaired judgement Results & Data ([facility]) Vital Signs (Past 12 Hours) Vital Signs Temp Pulse Resp BP Pulse Ox 09/26/19 08:04 37.3 C 104 H 18 129/92 97 09/26/19 06:08 37.2 C 115 H 18 128/77 93 09/26/19 04:05 38.4 C H 09/26/19 02:30 38.3 C H PG Care Time/CCT Total # of Minutes Spent Total Time Spent with Patient: Total time spent is greater than 50% in coordination of care (as documented) at patient's floor/unit and/or counseling patient: 35 Coding Level of Care Code 98563 Subseq Hosp Care Lvl 3 Diagnoses Goals of care, counseling/discussion Z71.89 Alzheimer disease G30.9; F02.80 Hypernatremia E87.0 Acute renal failure N17.9 Time Spent (min) 35 Time Spent Midlevel Total time spent 35 mintues with > 50% of that time spent assessing the patient, discussing goals of care and attempting to reach the family. Discussing all with IDT.
[2019-09-26] MEDS ORDERED: CYANOCOBALAMIN 1,000 MCG in SYRINGE 0.97 ML IM SCH (14:30)
[2019-09-26] MEDS ORDERED: FOLIC ACID 1 MG in SYRINGE 9.8 ML IV ONE (15:00)
[2019-09-26] MEDS ORDERED: CYANOCOBALAMIN 1000 MCG/ML VIAL IM ONE (15:30)
[2019-09-26] MEDS: DOXYCYCLINE HYCLATE 100 MG in DEXTROSE 5% 100 ML IV SCH (15:52)
[2019-09-26] MEDS: risperiDONE 0.5 MG TABLET PO SCH (21:33)
[2019-09-26] MEDS: TRAZODONE HCL 50 MG TAB PO SCH (21:35)
[2019-09-26] MEDS: THIAMINE HCL 50 MG TABLET PO SCH (21:38)
[2019-09-27] MEDS: PIPERACILLIN/TAZOBACTAM 3.375 GM in DEXTROSE 5% 100 ML IV SCH ×3 (01:31→16:17)
[2019-09-27] MEDS: DOXYCYCLINE HYCLATE 100 MG in DEXTROSE 5% 100 ML IV SCH ×2 (04:49→13:58)
[2019-09-27 05:32] LABS: Hematocrit (blood only) 32.1 % (42-52); Hemoglobin 10.9 g/dL (14.0-18.0); Mean Corpuscular Hemoglobin 31.1 pg (25-34); Mean Corpuscular Volume 91.7 fL (80-100); Platelet Count 319 K/uL (130-400); RDW Coefficient of Variation 13.7 % (11.5-14.5); RDW Standard Deviation 44.9 fL (36.4-46.3); White Blood Count 16.69 K/uL (4.8-10.8)
[2019-09-27 05:58] LABS: Albumin Level 1.7 gm/dl (3.4-5.0); BUN Creatinine Ratio 21.1 (10-20); Calcium 7.6 mg/dl (8.5-10.1); Creatinine Clr Calc Pharmacy 87.3 ml/min; Est GFR (African American) 108.8; Est GFR (Non-African American) 93.9; Potassium 3.6 mmol/L (3.5-5.1)
[2019-09-27 06:00] LABS: Albumin Globulin Ratio 0.4 (0.9-2); Bilirubin,Total 0.5 mg/dl (0.2-1); Globulin 4.3 gm/dl (2.5-4.0)
[2019-09-27] MEDS: DIVALPROEX DELAY RELEASE 125 MG TABEC PO SCH ×4 (08:45→20:58)
[2019-09-27] MEDS: IRBESARTAN 75 MG TAB PO SCH (08:46)
[2019-09-27] MEDS: THIAMINE HCL 50 MG TABLET PO SCH (08:46)
[2019-09-27] MEDS: ENOXAPARIN INJ 40 MG/0.4 ML SYR SQ SCH (08:49)
[2019-09-27] MEDS: CYANOCOBALAMIN 1000 MCG/ML VIAL IM SCH (08:50)
[2019-09-27] MEDS: FOLIC ACID 400 MCG TAB PO SCH (10:48)
--- NOTE | 2019-09-27 12:30 | Hospitalist Progress Note ---
Date of Service September 27, 2019 Assessment & Plan (1) Pneumonia: * Over night of 09/21-09/22 fever, Tmax 38.3C. CXR shows new LLL infiltrate with new leukocytosis in the AM. UA was clear on admission. Low grade temp 37.6C AM 09/23 * 1/2 sets BCx 09/21 with microccus species, likely contaminant. All other blood cultures continue to be without growth. * Patient Temp up to 39.1C overnight 09/24-09/25 which only came to 38.3 after tylenol * Switched to Zosyn on 09/24 from Unasyn (started on 09/22 for aspiration pneumonia, initially placed on levaquin) for pseudomonas coverage given increase in WBC up to 24k on 09/24--> currently 16.6k. On day 3 of treatment with Zosyn. * Evaluated by speech and pt possibly chronically aspirating * Repeat CXR now considered clear. Repeat UA without evidence of infection. 97% on RA * COVID NEGATIVE resulted evening 09/25. can d/c precautions With continued elevated temps and slight bump in AST on prior labs, sent for possible anaplasmosis --> evidence of sole inclusion body suspicious for Anaplasmosis and started Doxy IV (on day 2 of therapy). PCR pending for confirmation Tylenol prn fever. will obtain ekg given continued tachycardia this afternoon but suspect related to fever (possibly related to anaplasmosis) vs compensation for BP 108/63. Will hold ARB and monitor BP Monitor AM labs (2) Anaplasmosis: * See above. Initiated on Doxy. Follow PCR (3) Anemia: * H/h dropped from 14/41 to 11.8/33.9. Had been receiving IVF, now discontinued. MCV 90.8 (previously 97.6 on admit) -- * Iron studies, B12/folate obtained --> iron studies c/w anemia of chronic disease however B12 low at 342, Folate low at 3.12 * Will order B12 1000mcg daily while inpatient and will likely need continued supplementation * Giving folic acid IV given issues with aspiration for ease of administration and now continuing with oral supplementation * h/h improving with addition of B12/folate --> h/h currently 10.9/32.1 * Continue to monitor CBC (4) B12 deficiency: * Has anemia of chronic disease on iron studies, but added B12/folate for possible mixed anemia --> * Daily IM while inpatient as above with need for continuation at discharge (5) Folate deficiency: * See above (6) Hypernatremia: * Presumed due to dehydration and lack of free water intake. --> Na up to 179 on admission. * Nephrology on consult -- appreciate assistance. Given additional D5W for 24 hours, stopped on 09/24 but did end up ordering additional liter 09/25. No further IVF. * Na 138 * Continue to monitor (7) Alzheimer disease: * Per son, baseline is that he is able to walk around and have some simple conversations. At present, he moans and smiles in response to questions, but does look at you. * Palliative care consult given poor cognitive status -> Appreciate recs. Living will did state conservative measures but if this is new baseline, son may have hard time accepting this. Will reach out to have them speak with son again tomorrow. If he does not return to baseline this patient would qualify for hospice services with a diagnosis of Senile Degeneration of the Brain * Evaluated by speech on 09/21 & 09/22 with rec for pured diet and honey thick liquids. Very possible that he is chronically, mildly aspirating. (see above) * Held donepezil, escitalopram, divalproex, trazodone for altered mental status initially * On 09/24--> restarted divalproex and low dose trazodone 12.5mg (to help with sundowning)-> Try to start low to help minimize abrupt mental status changes. Continuing at lower dose for now but may be able to titrate some tomorrow * Now that B1 level obtained, will initiated on oral replacement proactively * CT with significant bilateral temporal lobe atrophy, aiding in progression of Alzheimer's * PT/OT evals ordered to see if patient might possible qualify for SNF with possibility of hospice being available at his [facility] -- patient unable to participate in therapy * Will likely be discharged home with hospice but will need evaluated prior. CM following. Spoke with sister Romina who has been in contact with her nephew (son Brendan, POKe) who seems to be on the same page but will have the ultimate say. (8) Acute renal failure: * Acute kidney failure, POA. Unknown baseline. Cr was 1.8 on admission. * RESOLVED -- stable * Cr 0.77. BUN/Cr improved and patient continuing to have adequate PO * Continue to monitor (9) Hypertension: * Chronic. BP currently 108/63 * Restarted as BP tolerated and patient with adequate PO, although patient may not need moving forward or would benefit from lower dose. will hold--> had previously been on 50mg and on 75mg while inpatient as not available in 50mg * Continue to monitor (10) Hypokalemia: * Resolved. K 3.6 * monitor on am labs (11) DVT prophylaxis: * Lovenox Will likely move forward with hospice at discharge through [facility]. CM following. Will need eval. Unable to participate in PT/OT Admission and Anticipated Discharge Date Admission Date: September 19, 2019 Supervising Physician Co-Signing Physician Notes PA Supervision Note: I did not personally see or examine the patient today, but I verified all napoles points of BOLIVAR Lepe's assessment and plan with the following exceptions/additions: None Subjective Patient evaluated this morning. Resting comfortably in bed. Smiling in response to questions but unable to voice any discomfort or provide ROS. Eating with assistance with nursing staff. Unable to participate in PT/OT today. Updated sister Romina at bedside this afternoon regarding ability to set up SNF at discharge only if patient able to participate in therapy. She states she has been receiving updates from her nephew (patient's son) daily and is aware of the situation and agreeable to see about replacing electrolytes as needed, treating infection, and possible discharge back to [facility] on Hospice. Review of Systems Review of Systems: All systems reviewed & are unremarkable except as noted in HPI & below Physical Exam Constitutional: + physical limitations, + frail appearing and comfortable; no acute distress Eyes: + anicteric sclerae; no conjunctival abnormality ENMT: external ear and nose normal, oropharynx normal Neck: trachea midline, no thyromegaly normal visual inspection Respiratory: no respiratory distress and no labored breathing Auscultation: + crackles (faint bibasilar ) Cardiovascular: RRR, no murmur, no edema Gastrointestinal (Abdomen): Inspection/Auscultation: abdomen normal to inspection; abdomen not distended Musculoskeletal: no cyanosis or clubbing, extremities motor strength 5/5 Head/Neck/Chest: normocephalic Skin: healing ecchymosis lateral to left eye Neurologic: moves all extremities and awake Psychiatric: Orientation: alert; + not oriented to person, + not oriented to place and + not oriented to time Lymphatic: no cervical or axillary lymphadenopathy Results & Data Results & Data ([facility]) Vital Signs (Past 12 Hours) Vital Signs Temp Pulse Resp BP BP Pulse Ox 09/27/19 07:42 36.9 C 109 H 14 126/76 94 09/27/19 00:31 36.9 C 105 H 18 147/80 H 94 Laboratory Results 09/27/19 09/27/19 09/26/19 Range/Units 05:13 05:13 09:28 WBC 16.69 H (4.8-10.8) K/uL RBC 3.50 L (4.7-6.1) M/uL Hgb 10.9 L (14.0-18.0) g/dL Hct 32.1 L (42-52) % MCV 91.7 (80-100) fL MCH 31.1 (25-34) pg MCHC 34.0 (32-36) g/dL RDW Std Deviation 44.9 (36.4-46.3) fL RDW Coeff of Vivienne 13.7 (11.5-14.5) % Plt Count 319 (130-400) K/uL MPV 10.0 (7.4-10.4) fL Peripher Smr Path Cons Sodium 138 (136-145) mmol/L Potassium 3.6 (3.5-5.1) mmol/L Chloride 109 H (98-107) mmol/L Carbon Dioxide 21 (21-32) mmol/L Anion Gap 8.0 (3-11) BUN 16 (7-18) mg/dl Creatinine 0.77 (0.6-1.4) mg/dl Est Cr Clr Drug Dosing 87.3 ml/min Est GFR ( Amer) 108.8 Est GFR (Non-Af Amer) 93.9 BUN/Creatinine Ratio 21.1 H (10-20) Glucose 135 H (70-99) mg/dl Calcium 7.6 L (8.5-10.1) mg/dl Total Bilirubin 0.5 (0.2-1) mg/dl AST 33 (15-37) U/L ALT 43 (12-78) U/L Alkaline Phosphatase 85 (45-117) U/L Total Protein 6.0 L (6.4-8.2) gm/dl Albumin 1.7 L (3.4-5.0) gm/dl Globulin 4.3 H (2.5-4.0) gm/dl Albumin/Globulin Ratio 0.4 L (0.9-2) Anaplasma Smear A. phagocytophilum DNA Pending Anaplasma Comment SARS-CoV-2 RNA (RT-PCR) (NotDetected) 09/26/19 09/22/19 Range/Units 09:28 23:59 WBC (4.8-10.8) K/uL RBC (4.7-6.1) M/uL Hgb (14.0-18.0) g/dL Hct (42-52) % MCV (80-100) fL MCH (25-34) pg MCHC (32-36) g/dL RDW Std Deviation (36.4-46.3) fL RDW Coeff of Vivienne (11.5-14.5) % Plt Count (130-400) K/uL MPV (7.4-10.4) fL Peripher Smr Path Cons Sodium (136-145) mmol/L Potassium (3.5-5.1) mmol/L Chloride (98-107) mmol/L Carbon Dioxide (21-32) mmol/L Anion Gap (3-11) BUN (7-18) mg/dl Creatinine (0.6-1.4) mg/dl Est Cr Clr Drug Dosing ml/min Est GFR ( Amer) Est GFR (Non-Af Amer) BUN/Creatinine Ratio (10-20) Glucose (70-99) mg/dl Calcium (8.5-10.1) mg/dl Total Bilirubin (0.2-1) mg/dl AST (15-37) U/L ALT (12-78) U/L Alkaline Phosphatase (45-117) U/L Total Protein (6.4-8.2) gm/dl Albumin (3.4-5.0) gm/dl Globulin (2.5-4.0) gm/dl Albumin/Globulin Ratio (0.9-2) Anaplasma Smear See Comment A A. phagocytophilum DNA Anaplasma Comment Not Reportable SARS-CoV-2 RNA (RT-PCR) Not Detected (NotDetected) PG Care Time/CCT Total # of Minutes Spent Total Time Spent with Patient: Total time spent is greater than 50% in coordination of care (as documented) at patient's floor/unit and/or counseling patient: Coding Level of Care Code 53349 Subseq Hosp Care Lvl 3 Diagnoses Pneumonia J18.9 Anaplasmosis A77.49 Anemia D64.9 B12 deficiency E53.8 Folate deficiency E53.8 Hypernatremia E87.0 Alzheimer disease G30.9; F02.80 Acute renal failure N17.9 Hypertension I10 Hypokalemia E87.6 DVT prophylaxis Z29.9
[2019-09-27] MEDS ORDERED: ACETAMINOPHEN 325 MG TAB ONE (15:26)
[2019-09-27] MEDS: TRAZODONE HCL 50 MG TAB PO SCH (20:56)
[2019-09-27] MEDS: risperiDONE 0.5 MG TABLET PO SCH (20:57)
[2019-09-28] MEDS: ACETAMINOPHEN 325 MG TAB PO PRN (00:22)
[2019-09-28] MEDS: PIPERACILLIN/TAZOBACTAM 3.375 GM in DEXTROSE 5% 100 ML IV SCH ×3 (00:29→16:56)
[2019-09-28] MEDS: DOXYCYCLINE HYCLATE 100 MG in DEXTROSE 5% 100 ML IV SCH ×2 (04:15→14:25)
[2019-09-28] MEDS ORDERED: HydrALAZINE HCL 20 MG/ML VIAL IV STA (08:47)
[2019-09-28] MEDS: ENOXAPARIN INJ 40 MG/0.4 ML SYR SQ SCH (09:42)
[2019-09-28] MEDS: DIVALPROEX DELAY RELEASE 125 MG TABEC PO SCH ×3 (09:43→21:07)
[2019-09-28] MEDS: THIAMINE HCL 50 MG TABLET PO SCH (09:43)
[2019-09-28] MEDS: FOLIC ACID 400 MCG TAB PO SCH (09:43)
[2019-09-28] MEDS: CYANOCOBALAMIN 1000 MCG/ML VIAL IM SCH (09:43)
--- NOTE | 2019-09-28 11:31 | Hospitalist Progress Note ---
Date of Service September 28, 2019 Assessment & Plan (1) Pneumonia: * Over night of 09/21-09/22 fever, Tmax 38.3C. COVID negative. * CXR showed new LLL infiltrate with new leukocytosis, likely due to chronic aspiration as evaluated by speech. UA was clear on admission. * Repeat CXR clear. * Continue IV abx -- on day 4 of tx with Zosyn for pneumonia and will continue for 2 more days then d/c. * 1/2 sets BCx 09/21 with microccus species, likely contaminant. All other blood cultures continue to be without growth. * 94% on RA * Per discussion with son, plan to continue with hospice at discharge. Ok for trial abx, but no repeat hospitalizations or artificial nutrition/hydration. CM assisting as patient not able to return to [place] as he had previously been residing With continued elevated temps and slight bump in AST on prior labs, sent for possible anaplasmosis --> evidence of sole inclusion body suspicious for Anaplasmosis PCR still pending for confirmation so will continue Doxy for now (on day 3 of therapy) Tylenol prn fever. Labs in AM (2) Anaplasmosis: * See above. Initiated on Doxy. Follow PCR (3) Anemia: * H/h dropped from 14/41 to 11.8/33.9. Had been receiving IVF, now discontinued. MCV 90.8 (previously 97.6 on admit) -- * Iron studies, B12/folate obtained --> iron studies c/w anemia of chronic disease however B12 low at 342, Folate low at 3.12 * Will order B12 1000mcg daily while inpatient and will likely need continued supplementation * Giving folic acid IV intially and continued on oral supplementation * H/h improved to 10.9/32 - continue to monitor on AM CBC (4) B12 deficiency: * Has anemia of chronic disease on iron studies, but added B12/folate for possible mixed anemia --> B12 low at 342 * Daily IM while inpatient as above with need for continuation at discharge (5) Folate deficiency: * See above -- continue PO supplementation (6) Hypernatremia: * Presumed due to dehydration and lack of free water intake. --> Na up to 179 on admission. * Nephrology on consult -- appreciate assistance. * Na 138 * Monitor on AM labs given patient with decreased appetite today (7) Alzheimer disease: * Per son, baseline is that he is able to walk around and have some simple conversations. At present, he moans and smiles in response to questions, but does look at you. * Palliative care consult given poor cognitive status -> Planning on hospice at discharge. CM assisting with placement once son able to select facility as patient qualifies for hospice services with a diagnosis of Senile Degeneration of the Brain * Evaluated by speech on 09/21 & 09/22 with rec for pured diet and honey thick liquids. Very possible that he is chronically, mildly aspirating. (see above) * Held donepezil, escitalopram, divalproex, trazodone for altered mental status initially * On 09/24--> restarted divalproex and low dose trazodone 12.5mg (to help with ing)-> Try to start low to help minimize abrupt mental status changes. Continuing at lower dose for now but may be able to titrate some tomorrow * Now that B1 level obtained, will initiated on oral replacement proactively * CT with significant bilateral temporal lobe atrophy, aiding in progression of Alzheimer's * PT/OT evals with pt unable to participate * CM assisting with selecting facility (8) Acute renal failure: * Acute kidney failure, POA. Unknown baseline. Cr was 1.8 on admission. * RESOLVED -- stable * Cr 0.77. BUN/Cr improved and patient continuing to have adequate PO, decreased on 09/27 * Continue to monitor (9) Hypertension: * Chronic. BP currently 118/67 * Will not likely need home irbesartan at discharge as pressures have been on lower side * Continue to monitor (10) Hypokalemia: * Resolved. K 3.6 * monitor on am labs (11) DVT prophylaxis: * Lovenox Awaiting facility selection by son and then will move forward with hospice at discharge. Continuing IV abx for now but son agreed he would not like repeat hospitalizations, artificial nutrition or hydration moving forward per conversation with palliative team this afternoon Admission and Anticipated Discharge Date Admission Date: September 19, 2019 Supervising Physician Co-Signing Physician Notes BOLIVAR Supervision Note: I did not personally see or examine the patient today, but I verified all napoles points of BOLIVAR Lepe's assessment and plan with the following exceptions/additions: None Subjective Patient evaluated this morning with son at bedside. Resting comfortably in bed. Smiles when woken. Per son, his father has done that in the past when nervous or excited. Poor appetite this morning compared to days prior but did improve somewhat in the afternoon. Palliative team reached out to son this afternoon per our discussion with plans for hospice at discharge. Not to return back to [place] due to unable to accept back. Son looking into [facility] and other locations as provided by CM closer to his aunt, Romina. Son tearful when talking about subject however does demonstrate understanding of progression of dementia. Trial of abx ok, but no repeat hospital stays and no artificial nutrition/hydration with expectation of life expectancy weeks to months. Questions/concerns addressed at this time. Awaiting choice of facility and will make referrals through CM team. Review of Systems Review of Systems: Unobtainable due to cognitive status Physical Exam Constitutional: + physical limitations, + frail appearing and comfortable; no acute distress Eyes: + anicteric sclerae; no conjunctival abnormality healing ecchymosis lateral L eye ENMT: Ears: no EAC abnormality Nose: no external nose abnormality Neck: normal visual inspection Respiratory: no respiratory distress and no labored breathing Auscultation: + crackles (faint bibasilar ) Cardiovascular: Rate/Rhythm: + tachycardic Heart Sounds: no murmur Vessels: no JVD Extremities: no edema Gastrointestinal (Abdomen): Inspection/Auscultation: abdomen normal to inspection and normal bowel sounds; abdomen not distended Musculoskeletal: no cyanosis or clubbing, extremities motor strength 5/5 Head/Neck/Chest: normocephalic Skin: warm, dry Neurologic: moves all extremities; + not awake (sleeping but woken up with sternal rubbing) Psychiatric: Orientation: alert; + not oriented to person, + not oriented to place and + not oriented to time Genitourinary: acosta draining light yellow urine Lymphatic: no cervical or axillary lymphadenopathy Results & Data Results & Data ([facility]) Vital Signs (Past 12 Hours) Vital Signs Temp Pulse Resp BP Pulse Ox 09/28/19 06:55 37.7 C H 107 H 16 118/67 94 09/28/19 02:22 37.9 C H 09/28/19 00:19 38.6 C H 119 H 18 97/56 L 96 PG Care Time/CCT Total # of Minutes Spent Total Time Spent with Patient: Total time spent is greater than 50% in coordination of care (as documented) at patient's floor/unit and/or counseling patient: Coding Level of Care Code 08658 Subseq Hosp Care Lvl 2 Diagnoses Pneumonia J18.9 Anaplasmosis A77.49 Anemia D64.9 B12 deficiency E53.8 Folate deficiency E53.8 Hypernatremia E87.0 Alzheimer disease G30.9; F02.80 Acute renal failure N17.9 Hypertension I10 Hypokalemia E87.6 DVT prophylaxis Z29.9
--- NOTE | 2019-09-28 14:15 | Palliative Care Progress Note ---
Date of Service September 28, 2019 Assessment & Plan (1) Goals of care, counseling/discussion: -Patient waking more and moaning to touch, eating at times, intermittently, and able to say one or two words. -Patients COVID-19 test is negative. -I spoke with the patients son, Brendan, at length on the phone. He was emotional during the call and knows that he is doing the right thing by pursuing hospice, but is still devastated as him and his father was so close. -His son stated he would like for him to return to [facility]; however, at this time, they are stating they are unsure they will accept him, even with hospice services. They are not certain that they will be be able to meet this care needs. I expressed that we will have to determine his functional and cognitive level for returning there. -Moving forward if he does not return to baseline ambulation, This patient would qualify for hospice services with a diagnosis of Senile Degeneration of the Brain. -Case management indicated that several referrals have been placed at SNF's near the patients sisters location. -The patient does have a living will that indicates the patient would want conservative measures. I believe if this is the patients new baseline, the son will have a hard time with this new acceptance. -Palliative Care will follow and continue to assist with decision making. Patient will remain inpatient through the weekend. -Will continue to attempt in helping the family with decision making. -PPS: 20% (2) Alzheimer disease: (3) Hypernatremia: (4) Acute renal failure: Admission and Anticipated Discharge Date Admission Date: September 19, 2019 Subjective Patient wakes and moans, intermittently answers some questions Pt has woken up to eat, but has eaten significantly less over the past 2 days. Please see A/P for additional details. Review of Systems Review of Systems: Unobtainable due to cognitive status Physical Exam Constitutional: + ill appearing, + frail appearing, + combative and + lethargic Respiratory: normal respiratory effort, lungs clear to auscultation Auscultation: + diminished lung sounds Cardiovascular: RRR, no murmur, no edema Gastrointestinal (Abdomen): normal bowel sounds, soft, nontender, no hepatosplenomegaly Skin: + ecchymosis (around left eye) Psychiatric: Orientation: alert Insight: + impaired insight Judgement: + impaired judgement Results & Data ([facility]) Vital Signs (Past 12 Hours) Vital Signs Temp Pulse Resp BP Pulse Ox 09/28/19 06:55 37.7 C H 107 H 16 118/67 94 09/28/19 02:22 37.9 C H PG Care Time/CCT Total # of Minutes Spent Total Time Spent with Patient: Total time spent is greater than 50% in coordination of care (as documented) at patient's floor/unit and/or counseling patient: 45 Coding Level of Care Code 35351 Subseq Hosp Care Lvl 3 Diagnoses Goals of care, counseling/discussion Z71.89 Alzheimer disease G30.9; F02.80 Hypernatremia E87.0 Acute renal failure N17.9 Time Spent (min) 45 Time Spent Midlevel Total time spent 45 minutes with > 50% of that time spent assessing the patient, discussing goals of care with the patient's son and IDT.
[2019-09-28] MEDS: risperiDONE 0.5 MG TABLET PO SCH (21:07)
[2019-09-28] MEDS: TRAZODONE HCL 50 MG TAB PO SCH (21:07)
--- NOTE | 2019-09-28 22:29 | Electrocardiogram Report ---
Test Reason : Blood Pressure : / mmHG Vent. Rate : 113 BPM Atrial Rate : 113 BPM P-R Int : 128 ms QRS Dur : 072 ms QT Int : 330 ms P-R-T Axes : 051 042 056 degrees QTc Int : 452 ms Sinus tachycardia Otherwise normal ECG When compared with ECG of 19-SEP-2019 18:42, No significant change was found Confirmed by Kosta Barahona ([id number]) on 09/28/2019 10:29:24 PM Referred By: Jesus Phelan Confirmed By:Kosta Barahona
[2019-09-29] MEDS: PIPERACILLIN/TAZOBACTAM 3.375 GM in DEXTROSE 5% 100 ML IV SCH ×4 (00:32→23:55)
[2019-09-29] MEDS: DOXYCYCLINE HYCLATE 100 MG in DEXTROSE 5% 100 ML IV SCH ×2 (04:10→14:07)
[2019-09-29 08:13] LABS: Basophils # (auto) 0.01 K/uL (0-0.2); Basophils % (auto) 0.1 %; Eosinophils # (auto) 0.37 K/uL (0-0.5); Eosinophils % (auto) 3.1 %; Hemoglobin 10.5 g/dL (14.0-18.0); Immature Granulocytes # (auto) 0.32 K/uL (0.00-0.02); Immature Granulocytes % (auto) 2.7 %; Lymphocytes # (auto) 2.46 K/uL (1.2-3.4); Lymphocytes % (auto) 20.8 %; Mean Corpuscular Hemoglobin 30.4 pg (25-34); Mean Corpuscular Hgb Conc 32.8 g/dL (32-36); Mean Corpuscular Volume 92.8 fL (80-100); Mean Platelet Volume 9.7 fL (7.4-10.4); Monocytes # (auto) 1.13 K/uL (0.11-0.59); Monocytes % (auto) 9.6 %; Neutrophils # (auto) 7.51 K/uL (1.4-6.5); Neutrophils % (auto) 63.7 %; Platelet Count 389 K/uL (130-400); RDW Coefficient of Variation 13.9 % (11.5-14.5); RDW Standard Deviation 46.5 fL (36.4-46.3); Red Blood Count 3.45 M/uL (4.7-6.1)
[2019-09-29 08:44] LABS: BUN Creatinine Ratio 25.8 (10-20); Calcium 8.1 mg/dl (8.5-10.1); Creatinine Clr Calc Pharmacy 100.3 ml/min; Est GFR (African American) 115.2; Est GFR (Non-African American) 99.4; Potassium 3.9 mmol/L (3.5-5.1)
[2019-09-29] MEDS: DIVALPROEX DELAY RELEASE 125 MG TABEC PO SCH ×3 (09:03→20:32)
[2019-09-29] MEDS: FOLIC ACID 400 MCG TAB PO SCH (09:04)
[2019-09-29] MEDS: THIAMINE HCL 50 MG TABLET PO SCH (09:04)
[2019-09-29] MEDS: ENOXAPARIN INJ 40 MG/0.4 ML SYR SQ SCH (09:07)
[2019-09-29] MEDS: CYANOCOBALAMIN 1000 MCG/ML VIAL IM SCH (09:07)
--- NOTE | 2019-09-29 11:27 | XRay Report ---
XR KUB/Abdomen 1 view CLINICAL HISTORY: hypoactive BS, no BM for several days COMPARISON STUDY: No previous studies for comparison. FINDINGS: Central abdominal small bowel loops are the upper limits of normal in diameter. There is mo derate stool within the right and transverse colon. There is no current evidence of a significant bow el obstruction. IMPRESSION: 1. No conventional radiographic evidence of a significant bowel obstruction 2. Borderline dilated central abdominal small bowel loops could represent a mild ileus 3. Moderate stool within the right and transverse colon ACT 112: Negative or not required by law. Electronically signed by: Dennis Stewart M.D. 09/29/2019 11:26 AM
[2019-09-29] MEDS: SODIUM CHLORIDE 0.9% 500 ML IV SCH ×2 (11:57→18:29)
[2019-09-29] MEDS: DOCUSATE SODIUM 100 MG CAP PO SCH ×2 (12:06→20:33)
[2019-09-29] MEDS: POLYETHYLENE (MIRALAX) 17 GM PACK PO SCH (12:06)
--- NOTE | 2019-09-29 15:37 | Hospitalist Progress Note ---
Date of Service September 29, 2019 Assessment & Plan (1) Pneumonia: * Over night of 09/21-09/22 fever, Tmax 38.3C. COVID negative. * CXR showed new LLL infiltrate with new leukocytosis, likely due to chronic aspiration as evaluated by speech. UA was clear on admission. * Repeat CXR clear. * Continue IV abx -- on day 5 of tx with Zosyn for pneumonia and will continue for 1 more day then d/c. * 1/2 sets BCx 09/21 with microccus species, likely contaminant. All other blood cultures continue to be without growth. * 96% on RA * Per discussion with son, plan to continue with hospice at discharge. Ok for trial abx, but no repeat hospitalizations or artificial nutrition/hydration. CM assisting as patient not able to return to [place] as he had previously been residing With continued elevated temps and slight bump in AST on prior labs, sent for possible anaplasmosis --> evidence of sole inclusion body suspicious for Anaplasmosis, PCR pending Continue Doxy for now (on day 4 of therapy) Tylenol prn fever -- temp 37.9C overnight white count returning to normal, h/h stable Labs in AM (2) Anaplasmosis: * See above. Initiated on Doxy. Follow PCR (3) Anemia: * H/h dropped from 14/41 to 11.8/33.9. Had been receiving IVF, now discontinued. MCV 90.8 (previously 97.6 on admit) -- * Iron studies, B12/folate obtained --> iron studies c/w anemia of chronic disease however B12 low at 342, Folate low at 3.12 * Will order B12 1000mcg daily while inpatient and will likely need continued supplementation * Giving folic acid IV initially and continued on oral supplementation * h/h stable (4) B12 deficiency: * Has anemia of chronic disease on iron studies, but added B12/folate for possible mixed anemia --> B12 low at 342 * Daily IM while inpatient as above with need for continuation at discharge (5) Folate deficiency: * See above -- continue PO supplementation (6) Hypernatremia: * Presumed due to dehydration and lack of free water intake. --> Na up to 179 on admission. * Nephrology on consult -- appreciate assistance. * RESOLVED - Na 137 (7) Alzheimer disease: * Per son, baseline is that he is able to walk around and have some simple conversations. At present, he moans and smiles in response to questions, but does look at you. * Palliative care consult given poor cognitive status -> Planning on hospice at discharge. CM assisting with placement once son able to select facility as patient qualifies for hospice services with a diagnosis of Senile Degeneration of the Brain * Evaluated by speech on 09/21 & 09/22 with rec for pured diet and honey thick liquids. Very possible that he is chronically, mildly aspirating. (see above) * Held donepezil, escitalopram, divalproex, trazodone for altered mental status initially * On 09/24--> restarted divalproex and low dose trazodone 12.5mg (to help with ing)-> Try to start low to help minimize abrupt mental status changes. Continuing at lower dose for now but may be able to titrate some tomorrow * Now that B1 level obtained, will initiated on oral replacement proactively * CT with significant bilateral temporal lobe atrophy, aiding in progression of Alzheimer's * PT/OT evals with pt unable to participate * CM assisting with selecting facility (8) Acute renal failure: * Acute kidney failure, POA. Unknown baseline. Cr was 1.8 on admission. * RESOLVED -- stable * Cr 0.67 (9) Hypertension: * Chronic. BP currently 129/82 * Will not likely need home irbesartan at discharge as pressures have been on lower side * Continue to monitor (10) Hypokalemia: * Resolved. K 3.9 * monitor on am labs (11) DVT prophylaxis: * Lovenox Awaiting facility selection by son and then will move forward with hospice at discharge. Continuing IV abx for now but son agreed he would not like repeat hospitalizations, artificial nutrition or hydration moving forward per conversation with palliative team this afternoon Admission and Anticipated Discharge Date Admission Date: September 19, 2019 Supervising Physician Co-Signing Physician Notes BOLIVAR Supervision Note: I did not personally see or examine the patient today, but I verified all napoles points of BOLIVAR Lepe's assessment and plan with the following exceptions/additions: None Subjective Patient evaluated this morning. With hypoactive bs per nursing this morning. Then with small formed amount when repositioning. Smiles when asked questions but unable to provide any ROS. Review of Systems Review of Systems: All systems reviewed & are unremarkable except as noted in HPI & below Physical Exam Constitutional: + physical limitations, + frail appearing and comfortable; no acute distress Eyes: + anicteric sclerae; no conjunctival abnormality ENMT: Ears: no EAC abnormality Nose: no external nose abnormality Neck: normal visual inspection Respiratory: no respiratory distress and no labored breathing Auscultation: + crackles (faint bibasilar ) Cardiovascular: RRR, no murmur, no edema Gastrointestinal (Abdomen): Inspection/Auscultation: abdomen normal to inspection and + hypoactive bowel sounds; abdomen not distended Musculoskeletal: Head/Neck/Chest: normocephalic Skin: warm, dry Neurologic: moves all extremities and awake (sleeping but woken up when questioned) Psychiatric: Orientation: alert; + not oriented to person, + not oriented to place and + not oriented to time Lymphatic: no cervical or axillary lymphadenopathy Results & Data Results & [facility] ([facility]) Vital Signs (Past 12 Hours) Vital Signs Temp Pulse Resp BP Pulse Ox 09/29/19 07:14 37.2 C 109 H 18 117/75 94 Laboratory Results 09/29/19 09/29/19 09/29/19 Range/Units 11:44 07:39 07:39 WBC 11.80 H (4.8-10.8) K/uL RBC 3.45 L (4.7-6.1) M/uL Hgb 10.5 L (14.0-18.0) g/dL Hct 32.0 L (42-52) % MCV 92.8 (80-100) fL MCH 30.4 (25-34) pg MCHC 32.8 (32-36) g/dL RDW Std Deviation 46.5 H (36.4-46.3) fL RDW Coeff of Vivienne 13.9 (11.5-14.5) % Plt Count 389 (130-400) K/uL MPV 9.7 (7.4-10.4) fL Immature Gran % (Auto) 2.7 % Neut % (Auto) 63.7 % Lymph % (Auto) 20.8 % Toole % (Auto) 9.6 % Eos % (Auto) 3.1 % Baso % (Auto) 0.1 % Neut # (Auto) 7.51 H (1.4-6.5) K/uL Lymph # (Auto) 2.46 (1.2-3.4) K/uL Toole # (Auto) 1.13 H (0.11-0.59) K/uL Eos # (Auto) 0.37 (0-0.5) K/uL Baso # (Auto) 0.01 (0-0.2) K/uL Immature Gran # (Auto) 0.32 H (0.00-0.02) K/uL Sodium 137 (136-145) mmol/L Potassium 3.9 (3.5-5.1) mmol/L Chloride 108 H (98-107) mmol/L Carbon Dioxide 23 (21-32) mmol/L Anion Gap 6.0 (3-11) BUN 17 (7-18) mg/dl Creatinine 0.67 (0.6-1.4) mg/dl Est Cr Clr Drug Dosing 100.3 ml/min Est GFR ( Amer) 115.2 Est GFR (Non-Af Amer) 99.4 BUN/Creatinine Ratio 25.8 H (10-20) Glucose 117 H (70-99) mg/dl Calcium 8.1 L (8.5-10.1) mg/dl Stool Occult Bld Scrn Negative (Negative) Diagnostic Findings KUB IMPRESSION: 1. No conventional radiographic evidence of a significant bowel obstruction 2. Borderline dilated central abdominal small bowel loops could represent a mild ileus 3. Moderate stool within the right and transverse colon PG Care Time/CCT Total # of Minutes Spent Total Time Spent with Patient: Total time spent is greater than 50% in coordination of care (as documented) at patient's floor/unit and/or counseling patient: Coding Level of Care Code 58414 Subseq Hosp Care Lvl 2 Diagnoses Pneumonia J18.9 Anaplasmosis A77.49 Anemia D64.9 B12 deficiency E53.8 Folate deficiency E53.8 Hypernatremia E87.0 Alzheimer disease G30.9; F02.80 Acute renal failure N17.9 Hypertension I10 Hypokalemia E87.6 DVT prophylaxis Z29.9
[2019-09-29] MEDS: risperiDONE 0.5 MG TABLET PO SCH (20:32)
[2019-09-29] MEDS: TRAZODONE HCL 50 MG TAB PO SCH (20:39)
[2019-09-30] MEDS: DOXYCYCLINE HYCLATE 100 MG in DEXTROSE 5% 100 ML IV SCH ×2 (03:48→14:22)
[2019-09-30] MEDS: SODIUM CHLORIDE 0.9% 500 ML IV SCH (05:09)
[2019-09-30] MEDS: PIPERACILLIN/TAZOBACTAM 3.375 GM in DEXTROSE 5% 100 ML IV SCH ×2 (07:27→16:33)
[2019-09-30] MEDS: POLYETHYLENE (MIRALAX) 17 GM PACK PO SCH (07:32)
[2019-09-30] MEDS: FOLIC ACID 400 MCG TAB PO SCH (07:33)
[2019-09-30] MEDS: THIAMINE HCL 50 MG TABLET PO SCH (07:33)
[2019-09-30] MEDS: DIVALPROEX DELAY RELEASE 125 MG TABEC PO SCH ×3 (07:34→20:05)
[2019-09-30] MEDS: DOCUSATE SODIUM 100 MG CAP PO SCH ×2 (07:34→20:05)
[2019-09-30 07:39] LABS: Hematocrit (blood only) 32.9 % (42-52); Hemoglobin 10.9 g/dL (14.0-18.0); Mean Corpuscular Hemoglobin 30.4 pg (25-34); Mean Corpuscular Hgb Conc 33.1 g/dL (32-36); Mean Corpuscular Volume 91.9 fL (80-100); Mean Platelet Volume 9.1 fL (7.4-10.4); Platelet Count 425 K/uL (130-400); RDW Coefficient of Variation 13.7 % (11.5-14.5); RDW Standard Deviation 45.2 fL (36.4-46.3); Red Blood Count 3.58 M/uL (4.7-6.1); White Blood Count 11.38 K/uL (4.8-10.8)
[2019-09-30] MEDS: ENOXAPARIN INJ 40 MG/0.4 ML SYR SQ SCH (07:39)
[2019-09-30] MEDS: CYANOCOBALAMIN 1000 MCG/ML VIAL IM SCH (07:40)
--- NOTE | 2019-09-30 08:32 | CT Scan Report ---
ABDOMEN AND PELVIS CT WITHOUT CONTRAST CT DOSE: 1003.43 mGy.cm HISTORY: Acute fever with altered mental status fevers, AMS TECHNIQUE: Multiaxial CT images of the abdomen and pelvis were performed without contrast. A dose lo wering technique was utilized adhering to the principles of ALARA. COMPARISON STUDY: KUB of same day FINDINGS: Mild dependent bibasilar opacities or atelectasis. 4 mm fissural nodule adjacent to right middle lobe is suggestive of a probable lymph node. 5 mm fissural nodule of the right lung base on image 35 seri es 3. 4 mm solid nodule the basal right lower lobe on image 63 series 3. Limited exam secondary to up per extremity positioning. There is no pneumatosis or pneumoperitoneum. Coronary artery calcification s. Limited evaluation of the solid abdominal organs without the use of IV contrast. Within the limitatio ns of the study, the spleen, pancreas, adrenal glands, gallbladder and unenhanced liver appear unrema rkable. Unremarkable kidneys. Decompressed urinary bladder with Hernandez catheter. No aortic aneurysm or adenopathy. Mild nonspecific distal esophageal wall thickening. No bowel obstruction. There is mild rectal wall t hickening with perirectal stranding and presacral edema. There are scattered punctate radiodense foci noted within the rectum. Colonic diverticulosis. Moderate fecal retention. The visualized appendix a ppears normal. There is mild left hip synovial thickening. Small left hip joint effusion with mild st randing within the adjacent soft tissues. Mild osteoarthritis of the bilateral hips. Asymmetric promi nence of the left obturator internus. No bony erosive changes or suspicious osseous lesions. IMPRESSION: 1. Perirectal stranding and presacral edema may reflect underlying proctitis. 2. Small left hip joint effusion with asymmetric prominence of the left obturator internus. 3. Colonic diverticulosis without acute diverticulitis. 4. Solid nodules of the right lung base measure up to 5 mm. 5. Moderate fecal retention. Please refer to below summary of Fleischner criteria recommendations for follow-up of incidental CT n odules (Earline Padron, Guidelines for management of small pulmonary nodules detected on CT scans: A sta tement from the Fleischner Society, Radiology 237: [phone].) SOLID NODULES Solitary nodule size: <6 mm * Low risk patients: no follow-up needed * high risk patients: optional CT at 12 months Solitary nodule size: 6-8 mm * Low risk patients: follow-up at 6-12 months, then consider further follow-up at 18-24 months * high risk patients: initial follow-up CT at 6-12 months and then at 18-24 months if no change Solitary nodule size: >8 mm * either low or high risk patients - consider follow-up CT at 3 months, and/or CT-PET, and/or biopsy Multiple nodules size: <6 mm * Low risk patients: no routine follow-up * high risk patients: optional CT at 12 months Multiple nodules size: 6-8 mm * Low risk patients: follow-up at 3-6 months, then consider further follow-up at 18-24 months * high risk patients: follow-up at 3-6 months, then at 18-24 months if no change Multiple nodules size: >8 mm * Low risk patients: follow-up at 3-6 months, then consider further follow-up at 18-24 months * high risk patients: follow-up at 3-6 months, then at 18-24 months if no change Note: newly detected indeterminate nodule in persons 35 years of age or older. * Low risk patients: minimal or absent history of smoking and/or other known risk factors * high risk patients: history of smoking or of other known risk factors (e.g. first degree relative with lung cancer, or exposure to asbestos, radon, uranium) * if a nodule up to 8 mm is partly solid or is ground glass further follow-up is required after 24 m onths to exclude possible slow growing adenocarcinoma (BIRGIT) SUBSOLID NODULES Solitary pure ground-glass nodule * nodule size <6 mm - no CT follow-up required * nodule size >=6 mm - follow-up CT at 6-12 months, then every 2 years until 5 years Solitary part-solid nodule * nodule size <6 mm - no CT follow-up required * nodule size >=6 mm - follow-up CT at 3-6 months. If unchanged, and solid component remains <6 mm, then annual follow-up for 5 years Multiple subsolid nodules * nodule size <6 mm - follow-up CT at 3-6 months, consider further follow-up at 2 and 4 years if sta ble * nodule size >=6 mm - follow-up CT at 3-6 months, subsequent management based on the most suspiciou s nodule(s) The above report was generated using voice recognition software. It may contain grammatical, syntax o r spelling errors. ACT 112: Negative or not required by law. The above report was generated using voice recognition software. It may contain grammatical, syntax o r spelling errors. Electronically signed by: Jose Erickson M.D. 09/30/2019 8:31 AM
[2019-09-30] MEDS: ACETAMINOPHEN 325 MG TAB PO PRN (08:45)
--- NOTE | 2019-09-30 08:49 | Hospitalist Progress Note ---
Date of Service September 30, 2019 Assessment & Plan (1) Pneumonia: * Over night of 09/21-09/22 fever, Tmax 38.3C. COVID negative. * CXR showed new LLL infiltrate with new leukocytosis, likely due to chronic aspiration as evaluated by speech. UA was clear on admission. * Repeat CXR clear. * Continue IV abx -- on day 6 of tx with Zosyn, to be completed tomorrow * 1/2 sets BCx 09/21 with microccus species, likely contaminant. * All other blood cultures continue to be without growth. * 95% on RA * Per discussion with son, plan to continue with hospice at discharge. Ok for trial abx, but no repeat hospitalizations or artificial nutrition/hydration. CM assisting as patient not able to return to [place] as he had previously been residing Inclusion bodies on smear suspicious for anaplasmosis, started doxy IV Anaplasmosis PCR negative but will complete treatment for total of 10 days (on day 5) Last temp 37.9 on 09/27, no further temperatures WBC continuing to trend down Labs in AM (2) Anaplasmosis: * See above. Initiated on Doxy. Follow PCR (3) Anemia: * H/h dropped from 14/41 to 11.8/33.9. Had been receiving IVF, now discontinued. MCV 90.8 (previously 97.6 on admit) -- * Iron studies, B12/folate obtained * --> iron studies c/w anemia of chronic disease however B12 low at 342, Folate low at 3.12 * B12 IM daily while inpatient and oral at d/c * Continue folic acid * H/h stable, improved. 10.9/32.9 (4) B12 deficiency: * Has anemia of chronic disease on iron studies, but added B12/folate for possible mixed anemia --> B12 low at 342 * Daily IM while inpatient as above with need for continuation at discharge (5) Folate deficiency: * See above -- continue PO supplementation (6) Hypernatremia: * Presumed due to dehydration and lack of free water intake. --> Na up to 179 on admission. * Nephrology on consult -- appreciate assistance. * RESOLVED - Na 139 (7) Alzheimer disease: * Per son, baseline is that he is able to walk around and have some simple conversations. At present, he moans and smiles in response to questions, but does look at you. * Palliative care consult given poor cognitive status -> Planning on hospice at discharge. CM assisting with placement once son able to select facility as patient qualifies for hospice services with a diagnosis of Senile Degeneration of the Brain * Evaluated by speech on 09/21 & 09/22 with rec for pured diet and honey thick liquids. Very possible that he is chronically, mildly aspirating. (see above) * Held donepezil, escitalopram, divalproex, trazodone for altered mental status initially * On 09/24--> restarted divalproex and low dose trazodone 12.5mg (to help with sundowning)-> Try to start low to help minimize abrupt mental status changes. Continuing at lower dose for now but may be able to titrate some tomorrow * Now that B1 level obtained, will initiated on oral replacement proactively * CT with significant bilateral temporal lobe atrophy, aiding in progression of Alzheimer's * PT/OT evals with pt unable to participate * CM assisting with selecting facility (8) Acute renal failure: * Acute kidney failure, POA. Unknown baseline. Cr was 1.8 on admission. * RESOLVED -- stable * Cr 0.60 (9) Hypertension: * Chronic. BP currently 107/67 * Will not likely need home irbesartan at discharge as pressures have been on lower side * Continue to monitor (10) Hypokalemia: * Resolved. K 4.1 * monitor on am labs (11) DVT prophylaxis: * Lovenox Awaiting facility selection by son and then will move forward with hospice at discharge. Continuing IV abx for now but son agreed he would not like repeat hospitalizations, artificial nutrition or hydration moving forward Admission and Anticipated Discharge Date Admission Date: September 19, 2019 Supervising Physician Co-Signing Physician Notes BOLIVAR Supervision Note: I did not personally see or examine the patient today, but I verified all napoles points of BOLIVAR Lepe's assessment and plan with the following exceptions/additions: None Subjective Patient reported with tears from eyes this morning and medicated with Tylenol. Resting comfortably in bed upon arrival. Arouses easily and laughs when spoken to. Unable to provide ROS. Appears more pale today on exam. Less of an appetite per nursing but was able to try some mag citrate to get bowels moving given moderate fecal retention. Small BM AM 8/15 but nothing further since then. Hernandez continuing to drain urine, although slightly more concentrated today. Review of Systems Review of Systems: Unobtainable due to cognitive status Physical Exam Constitutional: + physical limitations, + frail appearing and comfortable; no acute distress Eyes: + anicteric sclerae; no conjunctival abnormality ENMT: external ear and nose normal, oropharynx normal Ears: no EAC abnormality Nose: no external nose abnormality Neck: trachea midline, no thyromegaly normal visual inspection Respiratory: no respiratory distress and no labored breathing Auscultation: + crackles (faint bibasilar ) Cardiovascular: Rate/Rhythm: regular rate and regular rhythm Heart Sounds: no murmur Vessels: no JVD Extremities: no edema Gastrointestinal (Abdomen): Inspection/Auscultation: abdomen normal to inspection and + hypoactive bowel sounds; abdomen not distended Percussion/Palpation: + abdomen firm; abdomen nontender and abdomen not rigid Musculoskeletal: appears resistant to flexion/internal/external rotation R hip Skin: cool, dry Neurologic: moves all extremities and awake (sleeping but woken up when questioned) Psychiatric: Orientation: alert; + not oriented to person, + not oriented to place and + not oriented to time Lymphatic: no cervical or axillary lymphadenopathy Results & Data Results & [facility] ([facility]) Vital Signs (Past 12 Hours) Vital Signs Temp Pulse Pulse Resp BP Pulse Ox 09/30/19 07:13 36.8 C 97 H 16 107/67 95 09/29/19 23:14 36.9 C 89 16 139/84 98 Laboratory Results 09/30/19 09/30/19 09/29/19 Range/Units 07:29 07:29 11:44 WBC 11.38 H (4.8-10.8) K/uL RBC 3.58 L (4.7-6.1) M/uL Hgb 10.9 L (14.0-18.0) g/dL Hct 32.9 L (42-52) % MCV 91.9 (80-100) fL MCH 30.4 (25-34) pg MCHC 33.1 (32-36) g/dL RDW Std Deviation 45.2 (36.4-46.3) fL RDW Coeff of Vivienne 13.7 (11.5-14.5) % Plt Count 425 H (130-400) K/uL MPV 9.1 (7.4-10.4) fL Sodium Pending Potassium Pending Chloride Pending Carbon Dioxide Pending Anion Gap Pending BUN Pending Creatinine Pending Est Cr Clr Drug Dosing Pending Est GFR ( Amer) Pending Est GFR (Non-Af Amer) Pending BUN/Creatinine Ratio Pending Glucose Pending Calcium Pending Total Bilirubin Pending Direct Bilirubin Pending AST Pending ALT Pending Alkaline Phosphatase Pending Total Protein Pending Albumin Pending Stool Occult Bld Scrn Negative (Negative) A. phagocytophilum DNA (Not Detected) 09/26/19 Range/Units 09:28 WBC (4.8-10.8) K/uL RBC (4.7-6.1) M/uL Hgb (14.0-18.0) g/dL Hct (42-52) % MCV (80-100) fL MCH (25-34) pg MCHC (32-36) g/dL RDW Std Deviation (36.4-46.3) fL RDW Coeff of Vivienne (11.5-14.5) % Plt Count (130-400) K/uL MPV (7.4-10.4) fL Sodium Potassium Chloride Carbon Dioxide Anion Gap BUN Creatinine Est Cr Clr Drug Dosing Est GFR ( Amer) Est GFR (Non-Af Amer) BUN/Creatinine Ratio Glucose Calcium Total Bilirubin Direct Bilirubin AST ALT Alkaline Phosphatase Total Protein Albumin Stool Occult Bld Scrn (Negative) A. phagocytophilum DNA Not Detected (Not Detected) Diagnostic Findings CT Abdomen/Pelvis w/o Contrast IMPRESSION: 1. Perirectal stranding and presacral edema may reflect underlying proctitis. 2. Small left hip joint effusion with asymmetric prominence of the left obturator internus. 3. Colonic diverticulosis without acute diverticulitis. 4. Solid nodules of the right lung base measure up to 5 mm. 5. Moderate fecal retention. PG Care Time/CCT Total # of Minutes Spent Total Time Spent with Patient: Total time spent is greater than 50% in coordination of care (as documented) at patient's floor/unit and/or counseling patient: Coding Level of Care Code 56398 Subseq Hosp Care Lvl 2 Diagnoses Pneumonia J18.9 Anaplasmosis A77.49 Anemia D64.9 B12 deficiency E53.8 Folate deficiency E53.8 Hypernatremia E87.0 Alzheimer disease G30.9; F02.80 Acute renal failure N17.9 Hypertension I10 Hypokalemia E87.6 DVT prophylaxis Z29.9
[2019-09-30] MEDS ORDERED: MAGNESIUM CITRATE 296 ML/BTL PO STA (08:51)
[2019-09-30 09:59] LABS: Albumin Level 1.5 gm/dl (3.4-5.0); BUN Creatinine Ratio 24.2 (10-20); Bilirubin,Total 0.4 mg/dl (0.2-1); Calcium 7.8 mg/dl (8.5-10.1); Est GFR (African American) 120.6; Potassium 4.1 mmol/L (3.5-5.1)
[2019-09-30 10:00] LABS: Bilirubin Direct 0.1 mg/dl (0-0.2); Total Protein 6.3 gm/dl (6.4-8.2)
[2019-09-30] MEDS ORDERED: ACETAMINOPHEN 325 MG TAB PO PRN (11:17)
[2019-09-30] MEDS: TRAZODONE HCL 50 MG TAB PO SCH (20:05)
[2019-09-30] MEDS: risperiDONE 0.5 MG TABLET PO SCH (20:05)
[2019-10-01] MEDS: PIPERACILLIN/TAZOBACTAM 3.375 GM in DEXTROSE 5% 100 ML IV SCH ×4 (00:04→23:28)
[2019-10-01] MEDS: DOXYCYCLINE HYCLATE 100 MG in DEXTROSE 5% 100 ML IV SCH ×2 (03:58→14:30)
[2019-10-01] MEDS: THIAMINE HCL 50 MG TABLET PO SCH (09:40)
[2019-10-01] MEDS: FOLIC ACID 400 MCG TAB PO SCH (09:40)
[2019-10-01] MEDS: DOCUSATE SODIUM 100 MG CAP PO SCH ×2 (09:41→21:50)
[2019-10-01] MEDS: DIVALPROEX DELAY RELEASE 125 MG TABEC PO SCH ×3 (09:41→21:50)
[2019-10-01] MEDS: POLYETHYLENE (MIRALAX) 17 GM PACK PO SCH (09:45)
[2019-10-01] MEDS: ENOXAPARIN INJ 40 MG/0.4 ML SYR SQ SCH (09:56)
[2019-10-01] MEDS: CYANOCOBALAMIN 1000 MCG/ML VIAL IM SCH (09:58)
--- NOTE | 2019-10-01 16:42 | Hospitalist Progress Note ---
Date of Service October 01, 2019 Assessment & Plan (1) Pneumonia: * Over night of 09/21-09/22 fever, Tmax 38.3C. COVID negative. * CXR showed new LLL infiltrate with new leukocytosis, likely due to chronic aspiration as evaluated by speech. UA was clear on admission. * Repeat CXR clear. * Continue IV abx -- on day 67 of tx with Zosyn, completed 09/30 * 1/2 sets BCx 09/21 with microccus species, likely contaminant. * All other blood cultures continue ngtd * 95% on RA * Per discussion with son, plan to continue with hospice at discharge. Ok for trial abx, but no repeat hospitalizations or artificial nutrition/hydration. 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 Follow PCR (3) Anemia: * H/h dropped from 14/41 to 11.8/33.9. Had been receiving IVF, now discontinued. MCV 90.8 (previously 97.6 on admit) -- * Iron studies, B12/folate obtained * --> iron studies c/w anemia of chronic disease however B12 low at 342, Folate low at 3.12 * B12 IM daily while inpatient and oral at d/c * Continue folic acid * H/h stable - will recheck am (4) B12 deficiency: * Has anemia of chronic disease on iron studies, but added B12/folate for possible mixed anemia --> B12 low at 342 * Daily IM while inpatient as above with need for continuation at discharge (5) Folate deficiency: * See above -- continue PO supplementation (6) Hypernatremia: * Presumed due to dehydration and lack of free water intake. --> Na up to 179 on admission. * Nephrology on consult -- appreciate assistance. * RESOLVED - Na 139 (7) Alzheimer disease: * Per son, baseline is that he is able to walk around and have some simple conversations. At present, he moans and smiles in response to questions, but does look at you. * Palliative care consult given poor cognitive status -> Planning on hospice at discharge. CM assisting with placement once son able to select facility as patient qualifies for hospice services with a diagnosis of Senile Degeneration of the Brain * Evaluated by speech on 09/21 & 09/22 with rec for pured diet and honey thick liquids. Very possible that he is chronically, mildly aspirating. (see above) * Held donepezil, escitalopram, divalproex, trazodone for altered mental status initially * On 09/24--> restarted divalproex and low dose trazodone 12.5mg (to help with sundowning)-> Try to start low to help minimize abrupt mental status changes. Continuing at lower dose for now but may be able to titrate some tomorrow * Now that B1 level obtained, will initiated on oral replacement proactively * CT with significant bilateral temporal lobe atrophy, aiding in progression of Alzheimer's * PT/OT evals with pt unable to participate * CM assisting with selecting facility (8) Acute renal failure: * Acute kidney failure, POA. Unknown baseline. Cr was 1.8 on admission. * RESOLVED -- stable * Cr 0.60 * Recheck bmp am * acceptable output - per nursing patient is taking in fairly good po (9) Hypertension: * Chronic. * Will not likely need home irbesartan at discharge as pressures have been on lower side * Continue to monitor (10) Hypokalemia: * Resolved. K 4.1 * monitor on am labs (11) DVT prophylaxis: * Lovenox Awaiting facility selection by son and then will move forward with hospice at discharge. Continuing IV abx for now but son agreed he would not like repeat hospitalizations, artificial nutrition or hydration moving forward Admission and Anticipated Discharge Date Admission Date: September 19, 2019 Subjective Patient is awake but does not interact meaningfully with me. Physical Exam Physical Exam: General: no distress Eyes: normal inspection, PERLL Respiratory: chest non tender, clear to auscultation, normal breath sounds, no respiratory distress, no accessory muscle use Cardiac: regular rate and rhythm, no rub or gallop, no murmur, no edema, no jvd GI/: active bowel sounds, no abd pain or tenderness, soft, non distended Extremities: normal range of motion, normal strength, non tender Neuro/Psych: alert, does not interact when spoken to Skin: normal color, dry, ecchymosis over left eye Results & Data Results & Data ([facility]) Vital Signs (Past 12 Hours) Vital Signs Temp Pulse Pulse Resp BP BP Pulse Ox 10/01/19 14:54 36.8 C 99 H 18 116/75 98 10/01/19 06:58 36.6 C 107 H 15 156/83 H 96 PG Care Time/CCT Total # of Minutes Spent Total Time Spent with Patient: Total time spent is greater than 50% in coordination of care (as documented) at patient's floor/unit and/or counseling patient: Coding Level of Care Code 91407 Subseq Hosp Care Lvl 2 Diagnoses Pneumonia J18.9 Anaplasmosis A77.49 Anemia D64.9 B12 deficiency E53.8 Folate deficiency E53.8 Hypernatremia E87.0 Alzheimer disease G30.9; F02.80 Acute renal failure N17.9 Hypertension I10 Hypokalemia E87.6 DVT prophylaxis Z29.9
--- NOTE | 2019-10-01 17:23 | Palliative Care Progress Note ---
Date of Service October 01, 2019 Assessment & Plan (1) Goals of care, counseling/discussion: -Patient waking more and moaning to touch, eating at times, intermittently; however this is declining, and able to say one or two words. -The patient appears to be stable for transfer at this time. His WBC is trending downward and he is completing his antibiotic regimen. -That being said, placement has proven to be a challenge based on bed availability and acceptance. -Moving forward if he does not return to baseline ambulation, This patient would qualify for hospice services with a diagnosis of Senile Degeneration of the Brain. -I have talked with the patients son, Brendan, numerous times regarding Hospice. -I do think another conversation is warranted to determine if Brendan would like to transition to more comfort focus while here in the hospital and transition wh en he is accepted at a facility. -I do know the patients son was considering going on a vacation, reluctantly, so he may not want to transition to comfort measures here, prior to his return. -I did call Brendan and leave a voicemail. Will reattempt tomorrow. -Case management indicated that several referrals have been placed at SNF's near the patients sisters location. -Will continue to attempt in helping the family with decision making. -PPS: 20% (2) Alzheimer disease: (3) Hypernatremia: (4) Acute renal failure: Admission and Anticipated Discharge Date Admission Date: September 19, 2019 Subjective Patient wakes and moans, intermittently answers some questions Pts diet has worsened and his PO intake has decreased significantly Please see A/P for additional details. Review of Systems Review of Systems: Unobtainable due to cognitive status Physical Exam Constitutional: + ill appearing, + frail appearing, + combative and + lethargic Respiratory: normal respiratory effort, lungs clear to auscultation Auscultation: + diminished lung sounds Cardiovascular: RRR, no murmur, no edema Gastrointestinal (Abdomen): normal bowel sounds, soft, nontender, no hepatosplenomegaly Skin: + pallor Psychiatric: Orientation: alert Insight: + impaired insight Judgement: + impaired judgement Results & Data ([facility]) Vital Signs (Past 12 Hours) Vital Signs Temp Pulse Pulse Resp BP BP Pulse Ox 10/01/19 14:54 36.8 C 99 H 18 116/75 98 10/01/19 06:58 36.6 C 107 H 15 156/83 H 96 PG Care Time/CCT Total # of Minutes Spent Total Time Spent with Patient: Total time spent is greater than 50% in coordination of care (as documented) at patient's floor/unit and/or counseling patient: 35 Coding Level of Care Code 76701 Subseq Hosp Care Lvl 3 Diagnoses Goals of care, counseling/discussion Z71.89 Alzheimer disease G30.9; F02.80 Hypernatremia E87.0 Acute renal failure N17.9 Time Spent (min) 35 Time Spent Midlevel Total time spent 35 minutes with > 50% of that time spent assessing the patient, discussing goals of care with IDT
[2019-10-01] MEDS: TRAZODONE HCL 50 MG TAB PO SCH (21:48)
[2019-10-01] MEDS: risperiDONE 0.5 MG TABLET PO SCH (21:51)
[2019-10-02] MEDS: DOXYCYCLINE HYCLATE 100 MG in DEXTROSE 5% 100 ML IV SCH ×2 (03:06→14:50)
[2019-10-02 06:19] LABS: Hematocrit (blood only) 32.9 % (42-52); Mean Corpuscular Hemoglobin 31.2 pg (25-34); Mean Corpuscular Hgb Conc 33.4 g/dL (32-36); Mean Corpuscular Volume 93.2 fL (80-100); Platelet Count 501 K/uL (130-400); RDW Coefficient of Variation 13.8 % (11.5-14.5); RDW Standard Deviation 45.8 fL (36.4-46.3); Red Blood Count 3.53 M/uL (4.7-6.1); White Blood Count 11.38 K/uL (4.8-10.8)
[2019-10-02 06:53] LABS: Albumin Level 1.6 gm/dl (3.4-5.0); Calcium 7.5 mg/dl (8.5-10.1); Creatinine Clr Calc Pharmacy 113.9 ml/min; Est GFR (African American) 121.4; Est GFR (Non-African American) 104.8; Potassium 4.2 mmol/L (3.5-5.1)
[2019-10-02 06:55] LABS: Albumin Globulin Ratio 0.3 (0.9-2); Bilirubin,Total 0.7 mg/dl (0.2-1); Globulin 4.8 gm/dl (2.5-4.0); Total Protein 6.4 gm/dl (6.4-8.2)
[2019-10-02] MEDS: ENOXAPARIN INJ 40 MG/0.4 ML SYR SQ SCH (07:44)
[2019-10-02] MEDS: DIVALPROEX DELAY RELEASE 125 MG TABEC PO SCH ×3 (07:44→20:13)
[2019-10-02] MEDS: POLYETHYLENE (MIRALAX) 17 GM PACK PO SCH (07:44)
[2019-10-02] MEDS: PIPERACILLIN/TAZOBACTAM 3.375 GM in DEXTROSE 5% 100 ML IV SCH ×2 (07:44→18:02)
[2019-10-02] MEDS: DOCUSATE SODIUM 100 MG CAP PO SCH ×2 (07:45→20:13)
[2019-10-02] MEDS: CYANOCOBALAMIN 1000 MCG/ML VIAL IM SCH (07:45)
[2019-10-02] MEDS: FOLIC ACID 400 MCG TAB PO SCH (07:45)
[2019-10-02] MEDS: THIAMINE HCL 50 MG TABLET PO SCH (07:45)
--- NOTE | 2019-10-02 15:31 | Hospitalist Progress Note ---
Date of Service October 02, 2019 Assessment & Plan (1) Pneumonia: * Over night of 09/21-09/22 fever, Tmax 38.3C. COVID negative. * CXR showed new LLL infiltrate with new leukocytosis, likely due to chronic aspiration as evaluated by speech. UA was clear on admission. * Repeat CXR clear. * Continue IV abx -- Zosyn, completed 10/01 but will extend out another day given persistent leukocytosis. * 1/2 sets BCx 09/21 with microccus species, likely contaminant. * All other blood cultures continue ngtd * 95% on RA * Discussed goals again with son today. He would like his father to be supported with IV fluids and antibiotics if necessary but does not want any feeding tubes. Per earlier discussion between son and palliative care - plan to continue with hospice at discharge. Ok for trial abx, but no repeat hospitalizations. CM assisting as patient not able to return to [place] as he had previously been residing Inclusion bodies on smear suspicious for anaplasmosis, continue doxy IV Anaplasmosis PCR negative but will complete treatment for total of 10 days (on day 5) Last temp 37.9 on 09/27, no further temperatures WBC trending down but has been hanging around 11. Will gently hydrate today and recheck am. (2) Anaplasmosis: * See above. (3) Anemia: * H/h dropped from 14/41 to 11.8/33.9. Likely partially due to hemodilution - has been stable around 11 * Iron studies, B12/folate obtained * --> iron studies c/w anemia of chronic disease however B12 low at 342, Folate low at 3.12 * B12 IM daily while inpatient and oral at d/c * Continue folic acid * H/h stable - will recheck am (4) B12 deficiency: * Has anemia of chronic disease on iron studies, but added B12/folate for possible mixed anemia --> B12 low at 342 * Daily IM while inpatient as above with need for continuation at discharge (5) Folate deficiency: * See above -- continue PO supplementation (6) Hypernatremia: * Presumed due to dehydration and lack of free water intake. --> Na up to 179 on admission. * Nephrology on consult, now signed off * RESOLVED (7) Alzheimer disease: * Per son, baseline is that he is able to walk around and have some simple conversations. He has continued to decline this admission. He is no longer interacting much besides moaning at times. * Palliative care consult given poor cognitive status -> Planning on hospice at discharge. CM assisting with placement once son able to select facility as patient - qualifies for hospice services with a diagnosis of Senile Degeneration of the Brain * Evaluated by speech on 09/21 & 09/22 with rec for pured diet and honey thick liquids. Very possible that he is chronically, mildly aspirating. (see above) * Held donepezil, escitalopram, divalproex, trazodone for altered mental status initially * On 09/24--> restarted divalproex and low dose trazodone 12.5mg (to help with sundowning) * Thiamine was low - continue replacement * CT with significant bilateral temporal lobe atrophy, aiding in progression of Alzheimer's * PT/OT evals with pt unable to participate * CM assisting with selecting facility (8) Acute renal failure: * Acute kidney failure, POA. Unknown baseline. Cr was 1.8 on admission. * RESOLVED -- stable * output slightly low. Will place patient on gentle IVF and monitor output. Per nursing notes, patient does not always accept fluids offered. * Repeat bmp am (9) Hypertension: * Chronic. * Will not likely need home irbesartan at discharge as pressures have been on lower side * Continue to monitor (10) Hypokalemia: * Resolved * monitor on am labs (11) DVT prophylaxis: * Lovenox Awaiting facility that will accept patient, plan is for hospice at discharge. Continuing IV abx/IVF for now - son discussed with palliative care that he would not like repeat hospitalizations. Admission and Anticipated Discharge Date Admission Date: September 19, 2019 Subjective Mr. Bhagat does not interact when I saw him today though he is awake. His evening nurse last night said that he was eating about half of his meal and drinking sips offered. Had a discussion with his son concerning his goals of care. I did discuss that his father was eating about half of his food and likely not drinking much as his urine output was dropping off a bit. I also discussed that he continues to have a small elevation in his white blood cell count. We discussed his goals which is to be with his father every day if he is actively dying. He is on a planned trip with his family to [place] and so cannot return until the end of the month. He asks that at this time we support his father with IVF and any necessary antibiotics at this time. He does not want any feeding tubes. Physical Exam Physical Exam: General: no distress Eyes: normal inspection, PERLL Respiratory: chest non tender, clear to auscultation, normal breath sounds, no respiratory distress, no accessory muscle use Cardiac: regular rate and rhythm, no rub or gallop, no murmur, no edema, no jvd GI/: active bowel sounds, no abd pain or tenderness, soft, non distended Extremities: normal range of motion, normal strength, non tender Neuro/Psych: awake, does not interact Skin:pale, dry, dry mucous membranes Results & Data Results & Data ([facility]) Vital Signs (Past 12 Hours) Vital Signs Temp Pulse Pulse Resp BP BP Pulse Ox 10/02/19 15:08 37 C 104 H 16 128/76 94 10/02/19 06:58 36.8 C 103 H 16 103/68 95 PG Care Time/CCT Total # of Minutes Spent Total Time Spent with Patient: Total time spent is greater than 50% in coordination of care (as documented) at patient's floor/unit and/or counseling patient: Coding Level of Care Code 10999 Subseq Hosp Care Lvl 3 Diagnoses Pneumonia J18.9 Anaplasmosis A77.49 Anemia D64.9 B12 deficiency E53.8 Folate deficiency E53.8 Hypernatremia E87.0 Alzheimer disease G30.9; F02.80 Acute renal failure N17.9 Hypertension I10 Hypokalemia E87.6 DVT prophylaxis Z29.9
[2019-10-02] MEDS ORDERED: PIPERACILL/TAZOBAC CONSULT ACTIVE PRN (16:20)
[2019-10-02] MEDS: SODIUM CHLORIDE 0.9% 1000ML 1,000 ML IV SCH (17:08)
[2019-10-02] MEDS: TRAZODONE HCL 50 MG TAB PO SCH (20:13)
[2019-10-02] MEDS: risperiDONE 0.5 MG TABLET PO SCH (20:13)
[2019-10-03] MEDS: PIPERACILLIN/TAZOBACTAM 3.375 GM in DEXTROSE 5% 100 ML IV SCH ×3 (00:13→17:06)
[2019-10-03] MEDS: SODIUM CHLORIDE 0.9% 1000ML 1,000 ML IV SCH ×3 (03:22→22:30)
[2019-10-03] MEDS: DOXYCYCLINE HYCLATE 100 MG in DEXTROSE 5% 100 ML IV SCH ×2 (04:06→14:22)
[2019-10-03 06:27] LABS: Basophils # (auto) 0.01 K/uL (0-0.2); Basophils % (auto) 0.1 %; Eosinophils # (auto) 0.55 K/uL (0-0.5); Eosinophils % (auto) 4.5 %; Hematocrit (blood only) 33.7 % (42-52); Hemoglobin 11.4 g/dL (14.0-18.0); Immature Granulocytes # (auto) 0.22 K/uL (0.00-0.02); Immature Granulocytes % (auto) 1.8 %; Lymphocytes # (auto) 2.38 K/uL (1.2-3.4); Lymphocytes % (auto) 19.5 %; Mean Corpuscular Hemoglobin 31.7 pg (25-34); Mean Corpuscular Hgb Conc 33.8 g/dL (32-36); Mean Corpuscular Volume 93.6 fL (80-100); Mean Platelet Volume 9.1 fL (7.4-10.4); Monocytes # (auto) 0.72 K/uL (0.11-0.59); Monocytes % (auto) 5.9 %; Neutrophils # (auto) 8.35 K/uL (1.4-6.5); Neutrophils % (auto) 68.2 %; Platelet Count 515 K/uL (130-400); RDW Coefficient of Variation 13.7 % (11.5-14.5); RDW Standard Deviation 46.2 fL (36.4-46.3); White Blood Count 12.23 K/uL (4.8-10.8)
[2019-10-03 06:57] LABS: BUN Creatinine Ratio 21.8 (10-20); Calcium 8.2 mg/dl (8.5-10.1); Creatinine Clr Calc Pharmacy 108.4 ml/min; Est GFR (Non-African American) 102.7; Potassium 4.1 mmol/L (3.5-5.1)
[2019-10-03] MEDS: ENOXAPARIN INJ 40 MG/0.4 ML SYR SQ SCH (08:18)
[2019-10-03] MEDS: POLYETHYLENE (MIRALAX) 17 GM PACK PO SCH (08:22)
[2019-10-03] MEDS: FOLIC ACID 400 MCG TAB PO SCH (08:23)
[2019-10-03] MEDS: DIVALPROEX DELAY RELEASE 125 MG TABEC PO SCH ×3 (08:23→20:43)
[2019-10-03] MEDS: THIAMINE HCL 50 MG TABLET PO SCH (08:23)
[2019-10-03] MEDS: CYANOCOBALAMIN 1000 MCG/ML VIAL IM SCH (08:31)
[2019-10-03] MEDS: DOCUSATE SODIUM 100 MG CAP PO SCH ×2 (08:31→20:44)
--- NOTE | 2019-10-03 10:06 | Palliative Care Progress Note ---
Date of Service October 03, 2019 Assessment & Plan (1) Goals of care, counseling/discussion: -I met with the patient in room 350-2. -Patient did open his eyes and give me a smile today. Per nursing, he did take a few bites of his breakfast. Patient unable to follow commands. -Pt WBC is slightly rising 11-12 today. Patient was started on a new course of IV abx today. -The patient appears to be stable for transfer at this time. That being said, placement has proven to be a challenge based on bed availability and acceptance. -Per review of case management notes, it appears facility placement could occur at the end of the week vs early next week. -Again, the patient would qualify for hospice services with a diagnosis of Senile Degeneration of the Brain, which his son, Brendan, is aware of. -I did call Brendan chen and he did indicate that for now he would like to continue antibiotics and daily blood draws. -Will continue to attempt in helping the family with decision making. -PPS: 20% (2) Alzheimer disease: (3) Hypernatremia: (4) Acute renal failure: Admission and Anticipated Discharge Date Admission Date: September 19, 2019 Subjective Patient wakes and moans, intermittently answers some questions Pts diet has worsened and his PO intake has decreased significantly Please see A/P for additional details. Physical Exam Constitutional: + ill appearing, + frail appearing and + lethargic; not combative Respiratory: normal respiratory effort, lungs clear to auscultation Auscultation: + diminished lung sounds Cardiovascular: RRR, no murmur, no edema Gastrointestinal (Abdomen): normal bowel sounds, soft, nontender, no hepatosplenomegaly Skin: + pallor Psychiatric: Orientation: alert Insight: + impaired insight Judgement: + impaired judgement Results & Data ([facility]) Vital Signs (Past 12 Hours) Vital Signs Temp Pulse Pulse Resp BP BP Pulse Ox 10/03/19 07:12 36.7 C 105 H 16 115/72 94 10/02/19 23:00 36.8 C 101 H 18 128/77 95 PG Care Time/CCT Total # of Minutes Spent Total Time Spent with Patient: Total time spent is greater than 50% in coordination of care (as documented) at patient's floor/unit and/or counseling patient: 35 Coding Level of Care Code 48063 Subseq Hosp Care Lvl 3 Diagnoses Goals of care, counseling/discussion Z71.89 Alzheimer disease G30.9; F02.80 Hypernatremia E87.0 Acute renal failure N17.9 Time Spent (min) 345 Time Spent Midlevel Total time spent 35 minutes with > 50% of that time spent assessing the patient, discussing goals of care with IDT and reaching out to family.
--- NOTE | 2019-10-03 15:45 | Hospitalist Progress Note ---
Date of Service October 03, 2019 Assessment & Plan (1) Pneumonia: * Over night of 09/21-09/22 fever, Tmax 38.3C. COVID negative. * CXR showed new LLL infiltrate with new leukocytosis, likely due to chronic aspiration as evaluated by speech. UA was clear on admission. * Repeat CXR clear. * Continue IV abx -- Zosyn, completed 10/01 but will extend out another day given persistent leukocytosis. * 1/2 sets BCx 09/21 with microccus species, likely contaminant. * All other blood cultures continue ngtd * Discussed goals again with son 10/01. He would like his father to be supported with IV fluids and antibiotics if necessary but does not want any feeding tubes. Per earlier discussion between son and palliative care - plan to continue with hospice at discharge. Ok for trial abx, but no repeat hospitalizations. CM assisting as patient not able to return to [place] as he had previously been residing Inclusion bodies on smear suspicious for anaplasmosis, continue doxy IV Anaplasmosis PCR negative but will complete treatment for total of 10 days (on day 5) Last temp 37.9 on 09/27, no further temperatures WBC trending down but has been hanging around 11. Will gently hydrate today and recheck am. (2) Leukocytosis: With increasing platelets likely acute phase reactant. Unclear source - Zosyn coverage extended. Lungs clear to auscultation. Afebrile. Will recheck urine culture (3) Anaplasmosis: * See above. (4) Anemia: * H/h dropped from 14/41 to 11.8/33.9. Likely partially due to hemodilution - has been stable around 11 * Iron studies, B12/folate obtained * --> iron studies c/w anemia of chronic disease however B12 low at 342, Folate low at 3.12 * B12 IM daily while inpatient and oral at d/c * Continue folic acid * H/h stable - will recheck am (5) B12 deficiency: * Has anemia of chronic disease on iron studies, but added B12/folate for possible mixed anemia --> B12 low at 342 * Daily IM while inpatient as above with need for continuation at discharge (6) Folate deficiency: * See above -- continue PO supplementation (7) Hypernatremia: * Presumed due to dehydration and lack of free water intake. --> Na up to 179 on admission. * Nephrology on consult, now signed off * RESOLVED (8) Alzheimer disease: * Per son, baseline is that he is able to walk around and have some simple conversations. He has continued to decline this admission. He is no longer interacting much besides moaning at times. * Palliative care consult given poor cognitive status -> Planning on hospice at discharge. CM assisting with placement once son able to select facility as patient - qualifies for hospice services with a diagnosis of Senile Degeneration of the Brain * Evaluated by speech on 09/21 & 09/22 with rec for pured diet and honey thick liquids. Very possible that he is chronically, mildly aspirating. (see above) * Held donepezil, escitalopram, divalproex, trazodone for altered mental status initially * On 09/24--> restarted divalproex and low dose trazodone 12.5mg (to help with sundowning) * Thiamine was low - continue replacement * CT with significant bilateral temporal lobe atrophy, aiding in progression of Alzheimer's * PT/OT evals with pt unable to participate * CM assisting with selecting facility (9) Acute renal failure: * Acute kidney failure, POA. Unknown baseline. Cr was 1.8 on admission. * RESOLVED -- stable * output slightly low. Will place patient on gentle IVF and monitor output. Per nursing notes, patient does not always accept fluids offered. * Repeat bmp am (10) Hypertension: * Chronic. Blood pressures stable (11) Hypokalemia: * Resolved * monitor on am labs (12) DVT prophylaxis: * Lovenox Awaiting facility that will accept patient, plan is for hospice at discharge. Continuing IV abx/IVF for now - son discussed with palliative care that he would not like repeat hospitalizations. Admission and Anticipated Discharge Date Admission Date: September 19, 2019 Subjective A bit more alert today, looked at me while I was in the room and grimaced/smiled (hard to say which) and made some moaning noises Physical Exam Physical Exam: General: no distress Eyes: normal inspection, PERLL Respiratory: chest non tender, clear to auscultation, normal breath sounds, no respiratory distress, no accessory muscle use Cardiac: regular rate and rhythm, no rub or gallop, no murmur, no edema, no jvd GI/: active bowel sounds, no abd pain or tenderness, soft, non distended Extremities: normal range of motion, normal strength, non tender Neuro/Psych: awake, does not interact or verbalize Skin:pale, dry, dry mucous membranes Results & Data Results & Data ([facility]) Vital Signs (Past 12 Hours) Vital Signs Temp Pulse Pulse Resp BP Pulse Ox 10/03/19 15:14 37.1 C 108 H 14 135/80 99 10/03/19 07:12 36.7 C 105 H 16 115/72 94 PG Care Time/CCT Total # of Minutes Spent Total Time Spent with Patient: Total time spent is greater than 50% in coordination of care (as documented) at patient's floor/unit and/or counseling patient: Coding Level of Care Code 11028 Subseq Hosp Care Lvl 2 Diagnoses Pneumonia J18.9 Leukocytosis D72.829 Anaplasmosis A77.49 Anemia D64.9 B12 deficiency E53.8 Folate deficiency E53.8 Hypernatremia E87.0 Alzheimer disease G30.9; F02.80 Acute renal failure N17.9 Hypertension I10 Hypokalemia E87.6 DVT prophylaxis Z29.9
[2019-10-03] MEDS: risperiDONE 0.5 MG TABLET PO SCH (20:42)
[2019-10-03] MEDS: TRAZODONE HCL 50 MG TAB PO SCH (21:47)
[2019-10-04] MEDS: PIPERACILLIN/TAZOBACTAM 3.375 GM in DEXTROSE 5% 100 ML IV SCH ×3 (00:04→17:13)
[2019-10-04] MEDS: DOXYCYCLINE HYCLATE 100 MG in DEXTROSE 5% 100 ML IV SCH ×2 (04:13→14:07)
[2019-10-04 06:23] LABS: Hematocrit (blood only) 33.4 % (42-52); Hemoglobin 10.9 g/dL (14.0-18.0); Mean Corpuscular Hemoglobin 31.1 pg (25-34); Mean Corpuscular Hgb Conc 32.6 g/dL (32-36); Mean Corpuscular Volume 95.4 fL (80-100); Mean Platelet Volume 8.8 fL (7.4-10.4); Platelet Count 495 K/uL (130-400); RDW Coefficient of Variation 13.8 % (11.5-14.5); RDW Standard Deviation 47.2 fL (36.4-46.3); White Blood Count 11.48 K/uL (4.8-10.8)
[2019-10-04 06:58] LABS: Albumin Level 1.7 gm/dl (3.4-5.0); BUN Creatinine Ratio 19.5 (10-20); Calcium 8.1 mg/dl (8.5-10.1); Creatinine Clr Calc Pharmacy 103.4 ml/min; Est GFR (African American) 116.7; Est GFR (Non-African American) 100.7; Potassium 3.9 mmol/L (3.5-5.1)
[2019-10-04 07:01] LABS: Albumin Globulin Ratio 0.4 (0.9-2); Bilirubin,Total 0.4 mg/dl (0.2-1); Globulin 4.3 gm/dl (2.5-4.0)
[2019-10-04] MEDS: SODIUM CHLORIDE 0.9% 1000ML 1,000 ML IV SCH ×2 (07:31→17:13)
[2019-10-04] MEDS: ENOXAPARIN INJ 40 MG/0.4 ML SYR SQ SCH (07:38)
[2019-10-04] MEDS: CYANOCOBALAMIN 1000 MCG/ML VIAL IM SCH (07:39)
[2019-10-04] MEDS: POLYETHYLENE (MIRALAX) 17 GM PACK PO SCH (07:41)
[2019-10-04] MEDS: THIAMINE HCL 50 MG TABLET PO SCH ×2 (07:42→09:05)
[2019-10-04] MEDS: DOCUSATE SODIUM 100 MG CAP PO SCH ×3 (07:42→20:58)
[2019-10-04] MEDS: DIVALPROEX DELAY RELEASE 125 MG TABEC PO SCH ×4 (07:42→20:59)
[2019-10-04] MEDS: FOLIC ACID 400 MCG TAB PO SCH ×2 (07:42→09:05)
--- NOTE | 2019-10-04 13:39 | Hospitalist Progress Note ---
Date of Service October 04, 2019 Assessment & Plan (1) Pneumonia: * Over night of 09/21-09/22 fever, Tmax 38.3C. COVID negative. * CXR showed new LLL infiltrate with new leukocytosis, likely due to chronic aspiration as evaluated by speech. UA was clear on admission. * Repeat CXR clear. * Continue IV abx -- Zosyn, completed 10/01 but will extend out another few days given persistent leukocytosis. * 1/2 sets BCx 09/21 with microccus species, likely contaminant. * All other blood cultures continue ngtd * Discussed goals again with son 10/01. He would like his father to be supported with IV fluids and antibiotics if necessary but does not want any feeding tubes. Per earlier discussion between son and palliative care - plan to continue with hospice at discharge. Ok for trial abx, but no repeat hospitalizations. CM assisting as patient not able to return to [place] as he had previously been residing Inclusion bodies on smear suspicious for anaplasmosis, continue doxy IV Anaplasmosis PCR negative but will complete treatment for total of 10 days Last temp 37.9 on 09/27, no further temperatures WBC trending down but has been hanging around 11. Continue to gently hydrate (2) Leukocytosis: With increasing platelets likely acute phase reactant. Unclear source - Zosyn coverage extended. Lungs clear to auscultation. Afebrile. UC no growth. Patient has had four sets of BC drawn since admission, all have been negative (3) Anaplasmosis: * See above. (4) Anemia: * Hgb stable around 11 * anemia of chronic disease however B12 low at 342, Folate low at 3.12 * B12 IM daily while inpatient and oral at d/c * Continue folic acid supplementation (5) B12 deficiency: * Has anemia of chronic disease on iron studies, but added B12/folate for possible mixed anemia --> B12 low at 342 * Daily IM while inpatient as above with need for continuation at discharge (6) Folate deficiency: * See above -- continue PO supplementation (7) Hypernatremia: * Presumed due to dehydration and lack of free water intake. --> Na up to 179 on admission. * Nephrology on consult, now signed off * RESOLVED (8) Alzheimer disease: * Per son, baseline is that he is able to walk around and have some simple conversations. He has continued to decline this admission. He is no longer interacting much besides moaning at times. * Palliative care consult given poor cognitive status -> Planning on hospice at discharge. CM assisting with placement once son able to select facility as patient - qualifies for hospice services with a diagnosis of Senile Degeneration of the Brain * Evaluated by speech on 09/21 & 09/22 with rec for pured diet and honey thick liquids. Very possible that he is chronically, mildly aspirating. (see above) * Held donepezil, escitalopram, divalproex, trazodone for altered mental status initially * On 09/24--> restarted divalproex and low dose trazodone 12.5mg (to help with sundowning) * Thiamine was low - continue replacement * CT with significant bilateral temporal lobe atrophy, aiding in progression of Alzheimer's * PT/OT evals with pt unable to participate * CM assisting with selecting facility (9) Acute renal failure: * Acute kidney failure, POA. Unknown baseline. Cr was 1.8 on admission. * RESOLVED -- stable * Continue gentle IVF and monitor output. Per nursing notes patient is not taking in much po. (10) Hypertension: * Chronic. Blood pressures stable (11) Hypokalemia: * Resolved * monitor on am labs (12) DVT prophylaxis: * Lovenox Awaiting facility that will accept patient, plan is for hospice at discharge. Continuing IV abx/IVF for now - son discussed with palliative care that he would not like repeat hospitalizations. Updated Mr. Bhagat's son over the phone Admission and Anticipated Discharge Date Admission Date: September 19, 2019 Subjective Mr. Bhagat awakens to verbal stimulus but does not interact, does moan a bit a nd the fell back to sleep. Per nursing notes, patient is not eating very much. Physical Exam Physical Exam: General: no distress Eyes: normal inspection, PERLL Respiratory: chest non tender, clear to auscultation, normal breath sounds, no respiratory distress, no accessory muscle use Cardiac: regular rate and rhythm, no rub or gallop, no murmur, no edema, no jvd GI/: active bowel sounds, no abd pain or tenderness, soft, non distended Extremities: normal range of motion, normal strength, non tender Neuro/Psych: alert, non verbal Skin: normal color, dry Results & Data Results & Data ([facility]) Vital Signs (Past 12 Hours) Vital Signs Temp Pulse Pulse Resp BP Pulse Ox 10/04/19 07:00 36.9 C 100 H 14 148/82 H 99 10/04/19 04:13 93 H 21 96 PG Care Time/CCT Total # of Minutes Spent Total Time Spent with Patient: Total time spent is greater than 50% in coordination of care (as documented) at patient's floor/unit and/or counseling patient: Coding Level of Care Code 65397 Subseq Hosp Care Lvl 2 Diagnoses Pneumonia J18.9 Leukocytosis D72.829 Anaplasmosis A77.49 Anemia D64.9 B12 deficiency E53.8 Folate deficiency E53.8 Hypernatremia E87.0 Alzheimer disease G30.9; F02.80 Acute renal failure N17.9 Hypertension I10 Hypokalemia E87.6 DVT prophylaxis Z29.9
[2019-10-04] MEDS: risperiDONE 0.5 MG TABLET PO SCH (20:58)
[2019-10-04] MEDS: TRAZODONE HCL 50 MG TAB PO SCH (21:02)
[2019-10-05] MEDS: DOXYCYCLINE HYCLATE 100 MG in DEXTROSE 5% 100 ML IV SCH ×2 (03:53→14:49)
[2019-10-05] MEDS: SODIUM CHLORIDE 0.9% 1000ML 1,000 ML IV SCH ×2 (03:55→14:44)
[2019-10-05] MEDS: PIPERACILLIN/TAZOBACTAM 3.375 GM in DEXTROSE 5% 100 ML IV SCH ×3 (08:32→14:50)
[2019-10-05] MEDS: THIAMINE HCL 50 MG TABLET PO SCH (08:37)
[2019-10-05] MEDS: FOLIC ACID 400 MCG TAB PO SCH (08:37)
[2019-10-05] MEDS: ENOXAPARIN INJ 40 MG/0.4 ML SYR SQ SCH (08:37)
[2019-10-05] MEDS: DIVALPROEX DELAY RELEASE 125 MG TABEC PO SCH ×2 (08:37→12:57)
[2019-10-05] MEDS: CYANOCOBALAMIN 1000 MCG/ML VIAL IM SCH (08:37)
[2019-10-05] MEDS: DOCUSATE SODIUM 100 MG CAP PO SCH (08:37)
[2019-10-05] MEDS: POLYETHYLENE (MIRALAX) 17 GM PACK PO SCH (08:41)
[2019-10-05 09:18] LABS: Basophils # (auto) 0.03 K/uL (0-0.2); Basophils % (auto) 0.3 %; Eosinophils # (auto) 0.51 K/uL (0-0.5); Eosinophils % (auto) 4.6 %; Hematocrit (blood only) 32.9 % (42-52); Immature Granulocytes # (auto) 0.15 K/uL (0.00-0.02); Immature Granulocytes % (auto) 1.3 %; Lymphocytes # (auto) 2.36 K/uL (1.2-3.4); Lymphocytes % (auto) 21.2 %; Mean Corpuscular Hemoglobin 31.8 pg (25-34); Mean Corpuscular Hgb Conc 33.4 g/dL (32-36); Mean Corpuscular Volume 95.1 fL (80-100); Mean Platelet Volume 8.7 fL (7.4-10.4); Monocytes # (auto) 1.05 K/uL (0.11-0.59); Monocytes % (auto) 9.4 %; Neutrophils # (auto) 7.03 K/uL (1.4-6.5); Neutrophils % (auto) 63.2 %; Platelet Count 503 K/uL (130-400); RDW Standard Deviation 48.1 fL (36.4-46.3); Red Blood Count 3.46 M/uL (4.7-6.1); White Blood Count 11.13 K/uL (4.8-10.8)
[2019-10-05 09:39] LABS: BUN Creatinine Ratio 19.9 (10-20); Calcium 8.1 mg/dl (8.5-10.1); Creatinine Clr Calc Pharmacy 115.9 ml/min; Est GFR (African American) 122.3; Est GFR (Non-African American) 105.5; Potassium 3.9 mmol/L (3.5-5.1)
--- NOTE | 2019-10-05 10:22 | Hospitalist Progress Note ---
Date of Service October 05, 2019 Assessment & Plan Admission and Anticipated Discharge Date Admission Date: September 19, 2019 Results & Data Results & Data ([facility]) Vital Signs (Past 12 Hours) Vital Signs Temp Pulse Resp BP BP Pulse Ox 10/05/19 07:04 36.9 C 91 H 16 132/80 99 10/04/19 22:45 37.3 C 95 H 16 137/84 98 PG Care Time/CCT Total # of Minutes Spent Total Time Spent with Patient: Total time spent is greater than 50% in coordination of care (as documented) at patient's floor/unit and/or counseling patient: Coding
--- NOTE | 2019-10-05 13:06 | Discharge Summary ---
Date of Service October 05, 2019 Admission HPI Per Admitting Provider 69-year-old male with past medical history Alzheimer's dementia, hypertension, hyperlipidemia, depression, anxiety, DJD presents as a direct admit from [facility]. History is limited secondary to patient's cognitive status and lack of any significant paperwork/records from outside hospital. Apparently patient's son was driving with patient today and noticed that patient looked clammy and thus presented to outside hospital ED. Labs at outside hospital reportedly showed a sodium of 170 and creatinine 2. Patient received NSS 1L and was transferred via EMS to our hospital and given 1L D5W en route. No other significant HPI to report. Chest x-ray done at OSH, however no report included other than CD which cannot be read until the a.m. by radiology as we do not have any computers with CD compatibility. Admission Exam Per Admitting Provider Constitutional: + thin; no acute distress Respiratory: normal respiratory effort, lungs clear to auscultation no respiratory distress and no labored breathing Cardiovascular: RRR, no murmur, no edema Gastrointestinal (Abdomen): normal bowel sounds, soft, nontender, no hep atosplenomegaly Skin: no rashes, warm and dry Cool to touch Psychiatric: Orientation: alert; + not oriented x 3 Nonverbal Genitourinary: Hernandez in place Principal Diagnosis Hypernatremia, Aspiration Pneumonia, Senile Dementia Discharge Exam Constitutional: +physical limitations, + frail appearing and comfortable; no acute distress Eyes: + anicteric sclerae; no conjunctival abnormality ENMT: external ear and nose normal, oropharynx normal Ears: no EAC abnormality Nose: no external nose abnormality Neck: trachea midline, no thyromegaly normal visual inspection Respiratory: no respiratory distress and no labored breathing Auscultation: + crackles (faint bibasilar ) Cardiovascular: Rate/Rhythm: regular rate and regular rhythm Heart Sounds: no murmur Vessels: no JVD Extremities: no edema Gastrointestinal (Abdomen): Inspection/Auscultation: abdomen normal to inspection and + hypoactive bowel sounds; abdomen not distended Percussion/Palpation: + abdomen firm; abdomen nontender and abdomen not rigid Musculoskeletal: appears resistant to flexion/internal/external rotation R hip Skin: cool, dry, general pallor Neurologic: moves all extremities and awake (sleeping but woken up when questioned) Psychiatric: Orientation: alert; + not oriented to person, + not oriented to place and + not oriented to time Lymphatic: no cervical or axillary lymphadenopathy Discharge Data Allergies Allergy/AdvReac Type Severity Reaction Status Date / Time shellfish derived Allergy Unknown Verified 09/19/19 03:56 tomato Allergy Unknown Verified 09/19/19 03:56 cephalexin [From Keflex] AdvReac Unknown Verified 09/19/19 03:56 choline fenofibrate AdvReac Unknown Verified 09/19/19 03:56 [From Trilipix] coffee (Coffea arabica) AdvReac Unknown Verified 09/19/19 03:56 ezetimibe [From Zetia] AdvReac Unknown Verified 09/19/19 03:56 rosuvastatin [From Crestor] AdvReac Unknown Verified 09/19/19 03:56 Consultations 09/19/19 16:16 Consult Nephrology Routine 09/20/19 14:35 Consult Palliative Care Routine Ordered Studies 09/18 CXR 09/21 CXR 09/25/19 15:15 CT head/brain wo con Stat CXR 09/29/19 19:46 CT abd pelvis wo con Routine [facility] Hospital Course (1) Pneumonia: Initially admitted for hypernatremia with Na 179. Found to have aspiration pneumonia with fever 09/21- and was treated with Zosyn for PNA. Repeat CXR without acute findings. Last temp on 09/27 with T 37.9C Speech evaluated with likely chronically mildly aspirated Blood cultures without growth. Isolated contaminant 09/21 on 1/2 sets With repeated fevers, and inclusion body found on peripheral smear, treated for anaplasmosis. To complete course of treatment on 10/06. PCR was negative. Discussed with son and sister Romina, as well as palliative care team, given findings of bitemporal atrophy noted on CT and significant decline over past several months, discussion was made to proceed with hospice at discharge. Patient previously resided at but unable to return to that facility. Decision made for [facility] at discharge with hospice. Will continue IVF NSS @ 100cc/hr and antibiotics at discharge but will likely be discontinued as patient completes antibiotics and will likely decline as increasingly poor PO intake and change in environment Per discussion with son and palliative care team, as well as with myself, agreeable for IV fluids and antibiotics but no further hospitalizations/feeding tubes/etc. Of note, thiamine level <6 and has been on replacement since it was drawn with no improvement in cognitive status (2) Alzheimer disease: * Per son, baseline prior was that he was able to walk around and have some simple conversations. He has continued to decline this admission. * He is no longer interacting much besides moaning at times. * Palliative care consult given poor cognitive status ->- qualifies for hospice services with a diagnosis of Senile Degeneration of the Brain * Evaluated by speech on 09/21 & 09/22 with rec for pured diet and honey thick liquids. Very possible that he is chronically, mildly aspirating * Held donepezil, escitalopram, divalproex, trazodone for altered mental status initially and restarted at low dose to help with sundowning with improvement * Thiamine was <6 --> no improvement despite on replacement for over a week now * CT with significant bilateral temporal lobe atrophy, aiding in progression of Alzheimer's * PT/OT evals with pt unable to participate * CM assisting with selecting facility -- to be discharged on hospice to [facility] (3) Leukocytosis: See above (4) Anaplasmosis: * See above. (5) Anemia: Found to be both B12/folate deficient. Replaced and h/h stable Continue at discharge as patient tolerates * B12 low at 342, Folate low at 3.12 * B12 IM daily while inpatient and oral at d/c * Continued folic acid supplementation (6) B12 deficiency: * Has anemia of chronic disease on iron studies, but added B12/folate for possible mixed anemia --> B12 low at 342. Daily IM while inpatient and PO at discharge as able to tolerate (7) Folate deficiency: * See above -- continued PO supplementation (8) Hypernatremia: * Presumed due to dehydration and lack of free water intake. --> Na up to 179 on admission. * Nephrology consulted during admission. SIGNED off now that resolved (9) Acute renal failure: * Acute kidney failure, POA. Unknown baseline. Cr was 1.8 on admission. * RESOLVED -- stable * Continue IVF as patient with poor po intake although likely d/c once completed abx as tansitions to hospice (10) Hypertension: * Chronic. Blood pressures stable off irbesartan -- will not resume at discharge * BP 132/80 (11) Hypokalemia: * Resolved (12) DVT prophylaxis: * Lovenox while inpatient Awaiting facility that will accept patient, plan is for hospice at discharge. Continuing IV abx/IVF for now - son discussed with palliative care that he would not like repeat hospitalizations. Updated Mr. Bhagat's son over the phone Discharge planned for this afternoon to [facility] Total Time Total Time Spent Total Time Spent (In Minutes): 120 Discharge Plan Discharge Items Patient Disposition: Hospice - Medical Facility Reason For Visit: SEVERE DEMENTIA,HYPERNATREMIA, ELEV CREATIN,CLARITZA Discharge Diagnosis: Severe Dementia Goals: You have been hospitalized for an acute medical problem. During your stay at [facility], we have made an effort to correct the problem that brought you to the hospital while keeping you as comfortable as possible. Medications were used to bring your condition under control and your discharge instructions will include directions for any medications you should take after leaving the hospital. Please make sure you see your Primary Care Provider as part of your follow up plan. Activity: As commented below Activity Comment: as tolerated Non-emergency contact: Primary Care Provider Call non-emergency contact if: you have any medication questions Follow-up/Referrals: PCP,NO [Primary Care Provider] - Diet: Regular and Other - See Diet Comment Diet Texture: Pureed (blended smooth) Liquid Consistency: [place] thick Addtl Attending Provider Instructions: You have been hospitalized for an elevated sodium level. You were treated with fluids and then found to have a pneumonia during admission. You were evaluated by speech therapy and likely chronically aspirating. You were placed on a pureed diet and should continue this to prevent recurrent aspiration/infection. You have been evaluated by palliative care team and in conjunction with findings on CT of brain, it has been determined that dementia has progressed significantly and decisions were met to proceed with hospice at discharge. You are being set with IV fluids and to continue antibiotics for an additional 5 days. You have been sent ativan to utilize as needed for agitation and morphine for pain or labored breathing. It has been a pleasure being a part of the medical team providing for you while you have been in the hospital. Take care! Pending Studies at Discharge: No Stand-Alone Forms: My [facility] Skilled Items Patient informed of condition?: Yes DNR: Yes Discharge Level of Care: Other Communicable Disease: No Discharge Prognosis: Deteriorating Lines: Peripheral IV Urinary Catheter: Yes Medications and DC Order Prescriptions: New acetaminophen 325 mg Tablet 650 mg PO Q4H PRN (Reason: fever or pain) 30 Days RF: 0 trazodone 50 mg Tablet 12.5 mg PO HS 30 Days Qty: 8 RF: 0 polyethylene glycol 3350 [Miralax] 17 gram Powder In Packet 17 g PO DAILY 30 Days RF: 0 levalbuterol HCl 0.63 mg/3 mL Solution For Nebulization 0.63 mg NEB Q6R PRN (Reason: shortness of breath or wheezing) 30 Days RF: 0 folic acid 400 mcg Tablet 400 mcg PO QAM 30 Days Qty: 30 RF: 0 olanzapine 2.5 mg Tablet 2.5 mg PO Q6H PRN (Reason: agitation) 30 Days RF: 0 divalproex 125 mg Tablet,Delayed Release (Dr/Ec) 125 mg PO TID 30 Days Qty: 90 RF: 0 docusate sodium 100 mg Capsule 100 mg PO BID 30 Days Qty: 60 RF: 0 risperidone 0.5 mg Tablet 0.25 mg PO HS 30 Days Qty: 15 RF: 0 thiamine HCl (vitamin B1) [Vitamin B-1] 50 mg Tablet 50 mg PO QAM 30 Days Qty: 30 RF: 0 olanzapine 10 mg Recon Soln 5 mg IM Q6H PRN (Reason: agitation) 30 Days RF: 0 cyanocobalamin (vitamin B-12) 1,000 mcg capsule 1,000 mcg PO DAILY Qty: 30 RF: 0 doxycycline hyclate 100 mg capsule 100 mg PO BID 5 Days Qty: 10 RF: 0 lorazepam [Ativan] 1 mg tablet 1 mg PO BID PRN (Reason: anxiety) Qty: 10 RF: 0 morphine 20 mg/5 mL (4 mg/mL) solution 5 mg PO Q6H PRN (Reason: pain) Qty: 100 RF: 0 Discharge Orders: Discharge Order (Routine); Ordered 10/05/19 Ordered By: Sapphire Lepe Admission Data Admit Date/Time: 09/19/19 02:51 Attending Provider: Zion Srivastava Admit Provider: Jesus Phelan Primary Care Provider: PCP,NO Other Providers: Marylou Carson ; Orly Harris ; Suki Clemens Other Interventions: Discharge Summary Assessment (RN) Last Done: 10/05/19 14:51 Supervising Physician Co-Signing Physician Notes Attending note: patient seen and examined with Sapphire Lepe PA-C. I agree with her discharge summary. I reviewed the chart. Patient is comfortable, plans for palliative care at SNF. Will be maintained on all of his normal medications. If he deteriorates will make him comfort and not return to the hospital. - Pneumonia: resolved with IV antibiotics, no further plans for treatment, will likely continue to get pneumonia with aspiration and dementia, immobility - Dementia: end stage, will go to SNF, transition to palliative care for full details see the above discharge summary Coding Level of Care Code D/C Day Management >30 mins Diagnoses Pneumonia J18.9 Alzheimer disease G30.9; F02.80 Leukocytosis D72.829 Anaplasmosis A77.49 Anemia D64.9 B12 deficiency E53.8 Folate deficiency E53.8 Hypernatremia E87.0 Acute renal failure N17.9 Hypertension I10 Hypokalemia E87.6 DVT prophylaxis Z29.9
== END 2019-10-05 16:25 | disposition hospice, inpatient (51) | DRG 682 ==
LOC: 3W 02:51 → SUATTDRO 02:51 → 3N 09-22 15:20 → 3W 09-23 00:49